=== PATIENT | female | born 1945 | race Caucasian/White ===

== ENCOUNTER → 2017-09-19 13:25 | Outpatient (CLI) | payer MEDICARE, SELFPAY ==
[2017-09-19 15:45] LABS: Free T4 (Free Thyroxine) 1.18 ng/dl (0.76-1.46); Thyroid Stimulating Hormone 0.26 uIU/ml (0.358-3.740)
[2017-09-20 19:10] LABS: Triiodothyronine (T3) Free 2.3 pg/mL (2.0-4.4)
== END ==
PROVIDERS: PCP Nurse Practitioner Family; Visit Provider Otolaryngology
DX: E03.9 Hypothyroidism, unspecified (principal); E05.00 Thyrotoxicosis with diffuse goiter without thyrotoxic crisis or storm
CPT/HCPCS: 36415; 84439; 84443; 84481

== ENCOUNTER → 2017-11-21 09:15 | Outpatient (CLI) | payer MEDICARE, SELFPAY ==
[2017-11-21 10:59] LABS: Alanine Aminotransferase 32 U/L (12-78); Albumin Level 3.8 gm/dL (3.4-5.0); Alkaline Phosphatase 75 U/L (46-116); Aspartate Amino Transferase 31 U/L (15-37); Bilirubin,Direct 0.2 mg/dL (0.0-0.2); Bilirubin,Total 0.4 mg/dL (0.2-1.0); Cholesterol 142 mg/dL (140-200); HDL Cholesterol 71 mg/dL (29-89); LDL Cholesterol 63 mg/dL (0-130); Total Protein,Serum 6.4 gm/dL (6.4-8.2); Triglycerides 39 mg/dL (30-200); VLDL Cholesterol 8 mg/dL (0-40)
== END ==
PROVIDERS: Visit Provider Internal Medicine
DX: E78.5 Hyperlipidemia, unspecified (principal); I11.9 Hypertensive heart disease without heart failure; I25.10 Atherosclerotic heart disease of native coronary artery without angina pectoris; R07.9 Chest pain, unspecified; R06.00 Dyspnea, unspecified
CPT/HCPCS: 36415; 80061; 80076

== ENCOUNTER → 2018-07-31 15:13 | Outpatient (CLI) | payer MEDICARE, SELFPAY ==
--- NOTE | 2018-07-31 15:18 | MM_ITS ---
MM Dig screening mamm BI w/CAD ORDERING PHYSICIAN : Hosea Johnson MD PATIENT AGE: 72 years GENDER: Female COMPARISON: July 2017, 2015, 2014, June 2014, 2013 Also April 2011, and May 2012 states [facility] INDICATION: ITS.REASON: SCREENING No hormones. No new complaints. Previous lumpectomy and radiation left breast . Family history. Maternal cousin with breast cancer TECHNIQUE: Standard CC and MLO images were obtained. R2 CAD reviewed. Additional MLO views left breast FINDINGS: Moderately dense breast bilaterally. RIGHT BREAST: Areas of density superior right breast appears similar to May 2012, April 2011 CC and MLO views. One of the cc view from 2014 with some appearance as well. Given this relative stability follow-up would be adequate. LEFT BREAST:No significant new findings. Lumpectomy site deep left breast with what appear to be most likely dense course calcification at the biopsy site. Similar to last years study with only slight progression dense rim calcification pattern.. Overall appearance Most compatible with this slight progression of fat necrosis calcification.. It can be followed. IMPRESSION: No significant new findings either breast.- Bilateral follow-up one year Left breast:: Post lumpectomy changes.. Dense coarse benign appearing calcifications compatible with slowly progressing fat necrosis calcification seen at the biopsy site July 2017. Right breast:.. Asymmetric areas of fibroglandular extending superior and lateral to the retroareolar region, appears similar to old studies dating back to 2011 & 2010 Follow follow-up in one year recommended and should be encouraged BI-RADS Category: 2 Benign Finding(s) RECOMMENDED FOLLOW-UP: 1YR 1 YEAR FOLLOW-UP (A letter has been sent to the patient regarding results of the study.)
== END ==
PROVIDERS: PCP Internal Medicine Adolescent Medicine; Visit Provider Internal Medicine Adolescent Medicine
DX: Z12.31 Encounter for screening mammogram for malignant neoplasm of breast (principal)
CPT/HCPCS: 77067

== ENCOUNTER → 2018-08-06 10:35 | Outpatient (CLI) | payer MEDICARE, SELFPAY ==
[2018-08-06 11:19] LABS: Basophils # 0.1 K/mm3 (0-0.2); Basophils % 1.2 % (0.1-2.0); Eosinophils # 0.1 K/mm3 (0.0-0.4); Eosinophils % 2.4 % (0.1-12.0); Hematocrit 39.9 % (37.0-47.0); Hemoglobin 13.2 g/dL (12.2-16.2); Lymphocytes # 1.3 K/mm3 (0.7-4.5); Lymphocytes % 24.1 % (10-50); Mean Corpuscular HGB Conc 33.2 g/dL (31.8-35.4); Mean Corpuscular Hemoglobin 32.3 pg (27.0-31.2); Mean Corpuscular Volume 97.3 fl (81-99); Mean Platelet Volume 6.9 fl (7.4-10.4); Monocytes # 0.4 K/mm3 (0.1-1.0); Monocytes % 7.9 % (1.7-9.3); Neutrophils # 3.4 K/mm3 (1.8-7.8); Neutrophils % 64.5 % (37.0-80.0); Platelet Count 256 K/mm3 (142-424); Red Cell Distribution Width 12.5 % (11.5-17.5); White Blood Count 5.2 K/mm3 (4.8-10.8)
[2018-08-06 12:29] LABS: Cholesterol 163 mg/dL (140-200); HDL Cholesterol 80 mg/dL (29-89); LDL Cholesterol 74 mg/dL (0-130); Triglycerides 47 mg/dL (30-200); VLDL Cholesterol 9 mg/dL (0-40)
[2018-08-06 12:40] LABS: Albumin Level 3.9 gm/dL (3.4-5.0); Anion Gap 12.8 mEq/L (5-15); Bilirubin,Total 0.6 mg/dL (0.2-1.0); Blood Urea Nitrogen 7 mg/dL (7-18); Calcium 9.1 mg/dL (8.5-10.1); Carbon Dioxide 28 mmol/L (21.0-32.0); Chloride 102 mmol/L (98-107); Creatinine,Serum 0.68 mg/dL (0.55-1.02); Estimated Glomerular Filt Rate 86 ml/min (>60); GFR (African American) 104 ML/MIN (>60); Glucose 104 mg/dL (74-106); Potassium 3.8 mmoL/L (3.5-5.1); Sodium 139 mmol/L (136-145)
[2018-08-06 12:41] LABS: Albumin/Globulin Ratio 1.4 (1.1-1.8); Free Thyroxine Index 4.1 ug/dL (5.93-13.13); T4 (Thyroxine) 10.8 ug/dl (4.7-13.3); Triiodothryronine (T3) Uptake 38 % (31-39)
[2018-08-06 12:44] LABS: Globulin 2.7 gm/dl (1.3-3.2); Total Protein,Serum 6.6 gm/dL (6.4-8.2)
[2018-08-06 12:45] LABS: Alkaline Phosphatase 63 U/L (46-116)
[2018-08-06 12:46] LABS: Bilirubin,Direct 0.2 mg/dL (0.0-0.2)
[2018-08-06 12:46] LABS: Alanine Aminotransferase 25 U/L (12-78); Aspartate Amino Transferase 23 U/L (15-37)
[2018-08-07 12:11] LABS: Sjogren's Anti-SS-A <0.2 AI (0.0-0.9)
[2018-08-08 10:55] LABS: Antinuclear Antibodies, IFA Positive (.); Sjogren's Anti-SS-B <0.2 AI (0.0-0.9); Vitamin B12 540 pg/mL (232-1245)
[2018-08-09 21:45] LABS: Immunoglobulin E, Total 7 IU/mL (0-100)
== END ==
PROVIDERS: PCP Nurse Practitioner Family; Visit Provider Physician Assistant
DX: I11.9 Hypertensive heart disease without heart failure (principal)
CPT/HCPCS: 36415; 80053; 80061; 82248; 82607; 82785; 84436; 84443; 84479; 85025; 86038; 86235

== ENCOUNTER → 2018-12-24 09:32 | Outpatient (CLI) | payer MEDICARE, SELFPAY ==
[2018-12-24 09:49] LABS: Basophils # 0.1 K/mm3 (0-0.2); Basophils % 1.2 % (0.1-2.0); Eosinophils # 0.1 K/mm3 (0.0-0.4); Eosinophils % 2.4 % (0.1-12.0); Hematocrit 40.7 % (37.0-47.0); Hemoglobin 13.8 g/dL (12.2-16.2); Lymphocytes # 1.2 K/mm3 (0.7-4.5); Lymphocytes % 25.6 % (10-50); Mean Corpuscular HGB Conc 33.9 g/dL (31.8-35.4); Mean Corpuscular Hemoglobin 31.9 pg (27.0-31.2); Mean Platelet Volume 7.3 fl (7.4-10.4); Monocytes # 0.4 K/mm3 (0.1-1.0); Monocytes % 8.7 % (1.7-9.3); Neutrophils # 2.9 K/mm3 (1.8-7.8); Platelet Count 232 K/mm3 (142-424); Red Blood Count 4.33 M/mm3 (4.20-5.40); Red Cell Distribution Width 12.3 % (11.5-17.5); White Blood Count 4.7 K/mm3 (4.8-10.8)
[2018-12-24 10:51] LABS: Alanine Aminotransferase 28 U/L (12-78); Albumin/Globulin Ratio 1.3 (1.1-1.8); Alkaline Phosphatase 69 U/L (46-116); Anion Gap 12.9 mEq/L (5-15); Aspartate Amino Transferase 24 U/L (15-37); Bilirubin,Total 0.7 mg/dL (0.2-1.0); Blood Urea Nitrogen 7 mg/dL (7-18); Carbon Dioxide 29 mmol/L (21.0-32.0); Chloride 101 mmol/L (98-107); Chol/HDL Ratio 2.1 (1-3.5); Cholesterol 172 mg/dL (140-200); Creatinine,Serum 0.66 mg/dL (0.55-1.02); Estimated Glomerular Filt Rate 88 ml/min (>60); GFR (African American) 107 ML/MIN (>60); Glucose 102 mg/dL (74-106); HDL Cholesterol 81 mg/dL (29-89); LDL Cholesterol 80 mg/dL (0-130); Potassium 3.9 mmoL/L (3.5-5.1); Sodium 139 mmol/L (136-145); Thyroid Stimulating Hormone 0.74 uIU/ml (0.358-3.740); Triglycerides 53 mg/dL (30-200); VLDL Cholesterol 11 mg/dL (0-40)
[2018-12-25 10:43] LABS: Vitamin B12 >2000 pg/mL (232-1245)
[2018-12-25 10:44] LABS: Vitamin D 25 Hydroxy 30.4 ng/mL (30.0-100.0)
== END ==
PROVIDERS: Visit Provider Nurse Practitioner Family
DX: I10 Essential (primary) hypertension (principal); G62.9 Polyneuropathy, unspecified; I25.10 Atherosclerotic heart disease of native coronary artery without angina pectoris; E03.9 Hypothyroidism, unspecified; E53.8 Deficiency of other specified B group vitamins
CPT/HCPCS: 36415; 80053; 80061; 82607; 82652; 84443; 85025

== ENCOUNTER → 2019-03-25 13:32 | Outpatient (CLI) | payer MEDICARE, SELFPAY ==
[2019-03-25 15:12] LABS: Free T4 (Free Thyroxine) 1.15 ng/dl (0.76-1.46); Thyroid Stimulating Hormone 0.27 uIU/ml (0.358-3.740)
[2019-03-25 15:39] LABS: Erythrocyte Sedimentation Rate 8 mm/hr (0-30)
[2019-03-26 13:11] LABS: Sjogren's Anti-SS-A <0.2 AI (0.0-0.9)
[2019-03-26 18:06] LABS: RA Latex Turbid. <10.0 IU/mL (0.0-13.9); Sjogren's Anti-SS-B <0.2 AI (0.0-0.9)
== END ==
PROVIDERS: Visit Provider Internal Medicine Endocrinology, Diabetes & Metabolism
DX: R53.81 Other malaise (principal)
CPT/HCPCS: 36415; 84439; 84443; 85651; 86235; 86431

== ENCOUNTER → 2019-06-15 14:57 | Outpatient (CLI) | payer MEDICARE, SELFPAY | PROVIDERS: Visit Provider Internal Medicine Endocrinology, Diabetes & Metabolism | DX: E03.9 Hypothyroidism, unspecified (principal) | CPT/HCPCS: 36415; 84443 ==

== ENCOUNTER → 2019-06-30 09:55 | Outpatient (CLI) | payer MEDICARE, SELFPAY ==
[2019-06-30 10:58] LABS: Basophils # 0.1 K/mm3 (0-0.2); Basophils % 1.3 % (0.1-2.0); Eosinophils # 0.2 K/mm3 (0.0-0.4); Eosinophils % 3.6 % (0.1-12.0); Hematocrit 39.9 % (37.0-47.0); Hemoglobin 13.4 g/dL (12.2-16.2); Lymphocytes # 1.2 K/mm3 (0.7-4.5); Lymphocytes % 23.4 % (10-50); Mean Corpuscular HGB Conc 33.5 g/dL (31.8-35.4); Mean Corpuscular Hemoglobin 34.1 pg (27.0-31.2); Mean Corpuscular Volume 101.9 fl (81-99); Mean Platelet Volume 7.7 fl (7.4-10.4); Monocytes # 0.5 K/mm3 (0.1-1.0); Monocytes % 9.9 % (1.7-9.3); Neutrophils % 61.7 % (37.0-80.0); Platelet Count 253 K/mm3 (142-424); Red Blood Count 3.92 M/mm3 (4.20-5.40); Red Cell Distribution Width 12.9 % (11.5-17.5); White Blood Count 4.9 K/mm3 (4.8-10.8)
[2019-06-30 12:03] LABS: Alanine Aminotransferase 22 U/L (12-78); Albumin Level 3.8 gm/dL (3.4-5.0); Albumin/Globulin Ratio 1.4 (1.1-1.8); Alkaline Phosphatase 59 U/L (46-116); Aspartate Amino Transferase 25 U/L (15-37); Bilirubin,Total 0.5 mg/dL (0.2-1.0); Blood Urea Nitrogen 6 mg/dL (7-18); Carbon Dioxide 29 mmol/L (21.0-32.0); Chloride 103 mmol/L (98-107); Cholesterol 159 mg/dL (140-200); Creatinine,Serum 0.65 mg/dL (0.55-1.02); Estimated Glomerular Filt Rate 90 ml/min (>60); GFR (African American) 109 ML/MIN (>60); Globulin 2.7 gm/dl (1.3-3.2); Glucose 98 mg/dL (74-106); HDL Cholesterol 81 mg/dL (29-89); LDL Cholesterol 71 mg/dL (0-130); Sodium 137 mmol/L (136-145); Total Protein,Serum 6.5 gm/dL (6.4-8.2); Triglycerides 35 mg/dL (30-200); VLDL Cholesterol 7 mg/dL (0-40)
[2019-07-01 11:22] LABS: Vitamin B12 378 pg/mL (232-1245); Vitamin D 25 Hydroxy 28.3 ng/mL (30.0-100.0)
== END ==
PROVIDERS: Visit Provider Nurse Practitioner Family
DX: I10 Essential (primary) hypertension (principal); E53.8 Deficiency of other specified B group vitamins; M81.0 Age-related osteoporosis without current pathological fracture; E55.9 Vitamin D deficiency, unspecified
CPT/HCPCS: 36415; 80053; 80061; 82607; 82652; 85025

== ENCOUNTER → 2019-08-09 09:44 | Outpatient (CLI) | payer MEDICARE, SELFPAY ==
--- NOTE | 2019-08-09 09:49 | MM_ITS ---
PROCEDURE: MM DIG SCREENING MAMM BI W/CAD Patient Age:73Y CLINICAL INDICATION: SCREENING the history of left breast cancer. Malignant lumpectomy left breast with radiation. No new complaints. Family history: Maternal cousin with breast cancer COMPARISON: The DIAG MAMMO BI-LAT W/ CAD from 05/12/2012 [facility] DIG MAMM-SCREEN RUT from 06/11/2013 [facility] DIG MAMM-SCREEN RUT from 06/15/2014 [facility] DIG MAMM-SCREEN RUT from 07/20/2015 [facility] DIG MAMM-SCREEN RUT from 07/23/2016 [facility] DIG MAMM-DX UNI A/VWS-LT W/CAD from 08/15/2016 [facility] DIG MAMM-SCREEN RUT W/CAD from 07/28/2017 [facility] MM Dig screening mamm BI w/CAD from 07/31/2018 TECHNIQUE: Standard CC and MLO images were obtained. R2 CAD reviewed. FINDINGS: Multiple prior studies are very helpful in supporting stable appearing breast bilaterally. Mild asymmetry with moderate residual fibroglandular elements. A Left breast. Multiple surgical clips at the lumpectomy site at deep/inferior breast are again noted. But mild stable architectural distortion. No new findings in this region. Only minimal residual postsurgical soft tissue density, less evident on today's projections .. There is progressive dense spherical benign-appearing calcification at the biopsy site of reflecting likely benign fat necrosis, post biopsy calcification pattern. No suspicious calcifications Right breast but stable unremarkable. Bilateral follow-up 1 year recommended T IMPRESSION: No significant new findings. Lumpectomy deep breast. Benign dense spherical rim-like calcification deep left breast BI-RAD Category: 2 Benign Finding(s) FOLLOW-UP: 1YR 1 Year Follow-up the (A letter has been sent to the patient regarding results of the study.) Dictated by: Sandip Moss MD 08/12/2019 23:45 Electronically signed by Sandip Moss MD in [place] 08/12/2019 23:45
--- NOTE | 2019-08-09 09:50 | XR_ITS ---
PROCEDURE: XR DEXA AXIAL SKELETON CLINICAL HISTORY: OSTEOPOROSIS, currently taking calcium supplement COMPARISON: BONE3 BONE DENSITOMETRY(HIP:LT SPINE from 07/23/2016 FINDINGS: The average BMD lumbar spine L1 through L4 is 0.737 g per cm squared and the T-score is -2.8. This shows slight interval decrease from previous study when the T-score was -2.3. Bilateral hips: The total BMD right hip is 0.617 grams/centimeter sq with a T-score -2.7 and the right femoral neck is 0.479 grams/centimeter sq with T-score -3.3. Left hip: The total BMD is 0.585 grams/centimeter sq with a T-score -2.9 and the left femoral neck is 0.518 grams/centimeter sq with a T-score -3.0. These values show very little if any change from the previous study. IMPRESSION: Osteoporosis values for the lumbar spine and bilateral hips, consider follow-up study in approximately 2 years Dictated by: Dr. Renard Morales MD 08/10/2019 10:[address] Renard Morales MD in [place] 08/10/2019 10:27
== END ==
PROVIDERS: PCP Internal Medicine Adolescent Medicine; Referring Provider Nurse Practitioner Family; Visit Provider Nurse Practitioner Family
DX: Z12.31 Encounter for screening mammogram for malignant neoplasm of breast (principal); M81.0 Age-related osteoporosis without current pathological fracture
CPT/HCPCS: 77067; 77080

== ENCOUNTER → 2020-03-30 09:07 | Outpatient (CLI) | payer MEDICARE, SELFPAY ==
[2020-03-30 09:34] LABS: Basophils # 0.1 K/mm3 (0-0.2); Basophils % 1.2 % (0.1-2.0); Eosinophils # 0.1 K/mm3 (0.0-0.4); Hematocrit 39.9 % (37.0-47.0); Hemoglobin 13.8 g/dL (12.2-16.2); Lymphocytes # 1.1 K/mm3 (0.7-4.5); Lymphocytes % 19.2 % (10-50); Mean Corpuscular HGB Conc 34.7 g/dL (31.8-35.4); Mean Corpuscular Hemoglobin 33.9 pg (27.0-31.2); Mean Corpuscular Volume 97.8 fl (81-99); Mean Platelet Volume 7.5 fl (7.4-10.4); Monocytes # 0.4 K/mm3 (0.1-1.0); Monocytes % 6.6 % (1.7-9.3); Neutrophils # 3.9 K/mm3 (1.8-7.8); Neutrophils % 71.1 % (37.0-80.0); Platelet Count 236 K/mm3 (142-424); Red Blood Count 4.09 M/mm3 (4.20-5.40); Red Cell Distribution Width 12.9 % (11.5-17.5); White Blood Count 5.5 K/mm3 (4.8-10.8)
[2020-03-30 10:38] LABS: Chloride 100 mmol/L (98-107); Potassium 4.1 mmoL/L (3.5-5.1); Sodium 135 mmol/L (136-145)
[2020-03-30 10:40] LABS: Blood Urea Nitrogen 7 mg/dl (7-17); Estimated Glomerular Filt Rate 98 ml/min (>60); GFR (African American) 119 ML/MIN (>60)
[2020-03-30 10:41] LABS: Alanine Aminotransferase 25 U/L (12-78); Albumin/Globulin Ratio 1.6 (1.1-1.8); Alkaline Phosphatase 47 U/L (38-126); Anion Gap 11.1 mEq/L (5-15); Aspartate Amino Transferase 49 U/L (14-36); Bilirubin,Total 0.7 mg/dl (0.2-1.3); Calcium 9.8 mg/dl (8.4-10.2); Carbon Dioxide 28 mmol/L (22.0-30.0); Cholesterol 165 mg/dl (140-200); Globulin 2.5 g/dL (1.3-3.2); Glucose 108 mg/dl (74-100); HDL Cholesterol 84 mg/dl (40-60); Total Protein,Serum 6.5 g/dl (6.3-8.2); Triglycerides 65 mg/dl (30-150); VLDL Cholesterol 13 mg/dL (0-40)
[2020-03-30 10:52] LABS: Direct LDL Cholesterol 73.27 mg/dL (100-129)
[2020-03-30 10:58] LABS: Free T4 (Free Thyroxine) 1.26 ng/dl (0.78-2.19)
[2020-03-30 11:11] LABS: Thyroid Stimulating Hormone 2.98 uIU/mL (0.465-4.68)
[2020-03-30 11:30] LABS: 25-OH Vitamin D, Total 36.4 ng/mL (30-100)
[2020-03-31 10:16] LABS: Triiodothyronine (T3) Free 2.3 pg/mL (2.0-4.4); Vitamin B12 331 pg/mL (232-1245)
== END ==
PROVIDERS: Visit Provider Nurse Practitioner Family
DX: E03.9 Hypothyroidism, unspecified (principal); E53.8 Deficiency of other specified B group vitamins; I10 Essential (primary) hypertension; G62.9 Polyneuropathy, unspecified; M81.0 Age-related osteoporosis without current pathological fracture
CPT/HCPCS: 36415; 80053; 80061; 82306; 82607; 84439; 84443; 84481; 85025

== ENCOUNTER → 2020-06-22 13:39 | Outpatient (CLI) | payer MEDICARE, SELFPAY ==
[2020-06-22 14:22] LABS: Basophils # 0.1 K/mm3 (0-0.2); Eosinophils # 0.1 K/mm3 (0.0-0.4); Eosinophils % 1.8 % (0.1-12.0); Hematocrit 41.4 % (37.0-47.0); Hemoglobin 14.2 g/dL (12.2-16.2); Lymphocytes # 1.3 K/mm3 (0.7-4.5); Lymphocytes % 19.5 % (10-50); Mean Corpuscular HGB Conc 34.2 g/dL (31.8-35.4); Mean Corpuscular Hemoglobin 32.9 pg (27.0-31.2); Mean Corpuscular Volume 96.4 fl (81-99); Mean Platelet Volume 6.8 fl (7.4-10.4); Monocytes # 0.5 K/mm3 (0.1-1.0); Monocytes % 7.6 % (1.7-9.3); Neutrophils # 4.6 K/mm3 (1.8-7.8); Platelet Count 262 K/mm3 (142-424); Red Cell Distribution Width 12.7 % (11.5-17.5); White Blood Count 6.5 K/mm3 (4.8-10.8)
[2020-06-22 15:44] LABS: Chloride 98 mmol/L (98-107); Sodium 133 mmol/L (136-145)
[2020-06-22 15:46] LABS: Alanine Aminotransferase 15 U/L (12-78); Aspartate Amino Transferase 34 U/L (14-36); Blood Urea Nitrogen 7 mg/dl (7-17); Estimated Glomerular Filt Rate 82 ml/min (>60); GFR (African American) 100 ML/MIN (>60)
[2020-06-22 15:47] LABS: Albumin Level 4.2 g/dl (3.5-5.0); Albumin/Globulin Ratio 1.8 (1.1-1.8); Alkaline Phosphatase 45 U/L (38-126); Bilirubin,Total 0.5 mg/dl (0.2-1.3); Calcium 9.4 mg/dl (8.4-10.2); Carbon Dioxide 28 mmol/L (22.0-30.0); Globulin 2.4 g/dL (1.3-3.2); Glucose 105 mg/dl (74-100); Total Protein,Serum 6.6 g/dl (6.3-8.2)
[2020-06-22 16:07] LABS: Free Thyroxine Index 3.1 ug/dL (5.93-13.13); T4 (Thyroxine) 8.7 ug/dl (5.53-11.0); Triiodothryronine (T3) Uptake 36 % (23.5-40.5)
[2020-06-22 16:21] LABS: Thyroid Stimulating Hormone 2.15 uIU/mL (0.465-4.68)
[2020-06-22 17:11] LABS: Hemoglobin A1C 5.5 % (4.0-6.0)
[2020-06-22 23:26] LABS: Vitamin B12 > 1000 pg/mL (239-931)
== END ==
PROVIDERS: Visit Provider Nurse Practitioner Family
DX: R73.9 Hyperglycemia, unspecified (principal); E03.9 Hypothyroidism, unspecified; E53.8 Deficiency of other specified B group vitamins
CPT/HCPCS: 36415; 80053; 82607; 83036; 84436; 84443; 84479; 85025

== ENCOUNTER 2020-07-28 11:54 | Emergency (ER) | payer MEDICARE, SELFPAY ==
[2020-07-28 12:10] VITALS: BP 135/74; BP 150/77; PULSE 67; PULSE 73; RESP 22; TEMP 36.9; O2SAT 99; BMI 18.8
[2020-07-28 12:24] VITALS: BP 159/77; PULSE 68; RESP 18; TEMP 36.6; O2SAT 99; BMI 18.8
--- NOTE | 2020-07-28 12:30 | XR_ITS ---
PROCEDURE: XR CHEST 2V CLINICAL HISTORY: DIZZY COMPARISON: CR CXR1 CHEST-PORTABLE from 09/30/2016 CR CXR CHEST(2 VIEWS-NOT PORTABLE) from 12/31/2016 CR CXR1 CHEST-PORTABLE from 05/15/2017 FINDINGS: The cardiomediastinal silhouette and pulmonary vascularity are within normal limits. COPD changes. Surgical clips noted projecting over the lower lung zone on the left. There is scarring projecting over the anterior clear space No acute bony abnormalities. IMPRESSION: No acute findings. Dictated by: Wilmer Porras MD 07/28/2020 13:54 Wilmer Porras MD in [place] 07/28/2020 13:54
--- NOTE | 2020-07-28 12:30 | CT_ITS ---
PROCEDURE: CT HEAD/BRAIN WO CON CLINICAL INDICATION: DIZZY COMPARISON: CT HDWO CT HEAD W/O CONTRAST from 05/15/2017 TECHNIQUE: Axial images obtained. All CT scans at the facility use one or more dose reduction, viz: automated exposure control, ma/kV adjustment per patient size (including targeted exams where dose is matched to indication, i.e. head), or iterative reconstruction technique. FINDINGS: No midline shift, mass effect, intracranial hemorrhage, hydrocephalus, or extra-axial fluid collection is evident. There involutional changes of age with mild brain volume loss. The calvarium has an unremarkable appearance. No mastoid effusion. No sinus air-fluid level. IMPRESSION: No acute intracranial finding Dictated by: Wilmer Porras MD 07/28/2020 14:01 Wilmer Porras MD in [place] 07/28/2020 14:01
--- NOTE | 2020-07-28 12:38 | CT_ITS ---
Procedure: CT ANGIO NECK CT ANGIO HEAD CLINICAL HISTORY: DIZZINESS COMPARISON: CT CT ANGIO HEAD from 07/28/2020 TECHNIQUE: IV Contrast: 100ml Isovue 370 Axial images obtained with sagittal and coronal reformats. All CT scans at the facility use one or more dose reduction, viz: automated exposure control, ma/kV adjustment per patient size (including targeted exams where dose is matched to indication, i.e. head), or iterative reconstruction technique. FINDINGS: CTA neck: The aortic arch shows no acute finding. No significant stenosis of the great vessels. Right carotid: The common carotid and internal carotid artery have an unremarkable appearance. No stenosis or dissection. External carotid on the right has an unremarkable appearance. Left carotid: Unremarkable. No stenosis or dissection. Unremarkable internal and external carotid. Right vertebral: Unremarkable no stenosis occlusion or dissection. Left vertebral: The left vertebral is dominant. There is a calcific plaque involving the left subclavian artery extending to the ostium of the left vertebral with 50-60 percent ostial stenosis CTA head: The internal carotids demonstrate some minimal calcific plaque without significant stenosis. No aneurysm, AVM, or major branch occlusion evident. Vertebrobasilar: No aneurysm, AVM, or major branch occlusion. There is a small infundibulum projecting off of the PCOM origin of the left posterior cerebral Post enhanced CT head: No enhancing lesions. No midline shift or mass effect. No evidence of sinus thrombosis. Soft tissues head and neck: Scarring in the lung apices. IMPRESSION: 1. 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 No occlusive change or dissection. 2. Unremarkable CTA of the carotids. 3. Unremarkable CTA of the head Dictated by: Wilmer Porras MD 07/28/2020 14:14 Wilmer Porras MD in [place] 07/28/2020 14:14
--- NOTE | 2020-07-28 12:39 | ECG_ITS ---
APPROVED REPORT Exam: Resting ECG HR:60 bpm ECG Measurements Heart Rate 60 AXES LA 140 P 83 QRSd 80 QRS 60 QT 408 T 73 QTc 408 Conclusion Normal sinus rhythm Possible Left atrial enlargement Borderline ECG Electronically signed by : Hosea Johnson, 07/28/2020 19:08:42
[2020-07-28 12:44] LABS: Basophils % 0.7 % (0.1-2.0); Eosinophils # 0.1 K/mm3 (0.0-0.4); Eosinophils % 1.3 % (0.1-12.0); Hematocrit 41.4 % (37.0-47.0); Hemoglobin 13.4 g/dL (12.2-16.2); Lymphocytes # 1.1 K/mm3 (0.7-4.5); Lymphocytes % 17.6 % (10-50); Mean Corpuscular HGB Conc 32.5 g/dL (31.8-35.4); Mean Corpuscular Hemoglobin 31.6 pg (27.0-31.2); Mean Corpuscular Volume 97.5 fl (81-99); Mean Platelet Volume 6.8 fl (7.4-10.4); Monocytes # 0.5 K/mm3 (0.1-1.0); Monocytes % 7.5 % (1.7-9.3); Neutrophils # 4.5 K/mm3 (1.8-7.8); Neutrophils % 72.9 % (37.0-80.0); Platelet Count 252 K/mm3 (142-424); Red Blood Count 4.25 M/mm3 (4.20-5.40); Red Cell Distribution Width 12.1 % (11.5-17.5); White Blood Count 6.1 K/mm3 (4.8-10.8)
[2020-07-28 12:49] LABS: Chloride 98 mmol/L (98-107); Sodium 132 mmol/L (136-145)
[2020-07-28 12:50] LABS: Potassium 4.1 mmoL/L (3.5-5.1)
[2020-07-28 12:52] LABS: Alanine Aminotransferase 16 U/L (12-78); Albumin Level 4.4 g/dl (3.5-5.0); Albumin/Globulin Ratio 1.6 (1.1-1.8); Alkaline Phosphatase 62 U/L (38-126); Anion Gap 10.1 mEq/L (5-15); Aspartate Amino Transferase 36 U/L (14-36); Bilirubin,Total 0.7 mg/dl (0.2-1.3); Blood Urea Nitrogen 6 mg/dl (7-17); Carbon Dioxide 28 mmol/L (22.0-30.0); Creatinine Clearance Estimated 36 mL/min (50-200); Estimated Glomerular Filt Rate 98 ml/min (>60); GFR (African American) 119 ML/MIN (>60); Globulin 2.8 g/dL (1.3-3.2); Total Protein,Serum 7.2 g/dl (6.3-8.2)
[2020-07-28 12:53] LABS: Calcium 9.7 mg/dl (8.4-10.2); Glucose 124 mg/dl (74-100)
[2020-07-28 13:04] LABS: Troponin I < 0.01 ng/ml (0.00-0.034)
[2020-07-28 13:15] VITALS: BP 148/74; PULSE 68; O2SAT 99
[2020-07-28 13:31] LABS: Microscopic, Urine URINE MICROSCOPIC (MICROSCOPIC)
[2020-07-28 13:32] LABS: Appearance,Urine CLEAR (Clear); Bilirubin,Urine Negative (Negative); Blood, Urine 1+ (Negative); Color,Urine YELLOW (Yellow); Glucose,Urine (UA) Negative (Negative); Ketones,Urine Negative (Negative); Leukocyte Esterase,Urine Negative (Negative); Nitrate,Urine Negative (Negative); PH,Urine 6.5 (5.0-8.5); Protein,Urine Negative (Negative); Specific Gravity, Urine <= 1.005 (1.005-1.030); Urobilinogen,Urine 0.2 EU/dl (0.2)
[2020-07-28 13:39] LABS: Amorphous Sediment,Urine 1+ /lpf; Squamous Epithelial Cell,Urine Occasional #/hpf (0-5)
--- NOTE | 2020-07-28 13:49 | HMH.EDUTC ---
[facility] [place] Disposition Referrals: Hosea Johnson MD [Primary Care Provider] - Medical Decision Making Vital Signs: 07/28/20 12:10 07/28/20 12:24 07/28/20 13:15 Temperature 98.5 F 97.9 F Temperature Source Oral Oral Pulse Rate [Orthostatic Sitting Right Brachial] 67 Pulse Rate [Orthostatic Standing Right Brachial] 73 Pulse Rate [Radial] 68 Pulse Rate [Right Brachial] 67 68 Respiratory Rate 22 18 Blood Pressure [Orthostatic Sitting Right Arm] 150/77 H Blood Pressure [Orthostatic Standing Right Arm] 135/74 Blood Pressure [Right Arm] 150/77 H 159/77 H 148/74 H Blood Pressure Mean [Right Arm] 101 104 98 Blood Pressure Source [Right Arm] Automatic Cuff Automatic Cuff Automatic Cuff Blood Pressure Position [Right Arm] Sitting Sitting Sitting 02 Sat by Pulse Oximetry 99 99 99 Oxygen Delivery Method Room Air Room Air Room Air - Lab Data Lab Results 07/28/20 12:37: WBC 6.1, RBC 4.25, Hgb 13.4, Hct 41.4, MCV 97.5, MCH 31.6 H, MCHC 32.5, RDW 12.1, Plt Count 252, MPV 6.8 L, Neut % (Auto) 72.9, Lymph % (Auto) 17.6, [place] % (Auto) 7.5, Eos % (Auto) 1.3, Baso % (Auto) 0.7, Neut # (Auto) 4.5, Lymph # (Auto) 1.1, Kern # (Auto) 0.5, Eos # (Auto) 0.1, Baso # (Auto) 0.0 07/28/20 12:37: Sodium 132 L, Potassium 4.1, Chloride 98, Carbon Dioxide 28, Anion Gap 10.1, BUN 6 L, Creatinine 0.60, Estimated Creat Clear 36, Estimated GFR 98, Est GFR ( Amer) 119, Glucose 124 H, Calcium 9.7, Total Bilirubin 0.7, AST 36, ALT 16, Alkaline Phosphatase 62, Troponin I < 0.01, Total Protein 7.2, Albumin 4.4, Globulin 2.8, Albumin/Globulin Ratio 1.6 07/28/20 13:27: Urine Color Yellow, Urine Appearance Clear, Urine pH 6.5, Ur Specific Roann <= 1.005, Urine Protein Negative, Urine Glucose (UA) Negative, Urine Ketones Negative, Urine Blood 1+, Urine Nitrate Negative, Urine Bilirubin Negative, Urine Urobilinogen 0.2, Ur Leukocyte Esterase Negative, Urine RBC 3-5, Urine WBC None, Ur Squamous Epith Cells Occasional, Amorphous Sediment 1+, Urine Bacteria None Result diagrams: 07/28/20 12:37 07/28/20 12:37 Orders (Tests/Meds): ED MEDICATIONS Discontinued Medications Generic Name Dose Route Start Last Admin Trade Name Freq PRN Reason Stop Dose Admin Sodium Chloride 1,000 mls @ 999 mls/hr 07/28/20 12:45 07/28/20 12:43 Sod Chlor 0.9% 1000ml Bag IV 07/28/20 13:45 999 mls/hr .Q1H1M GUME Administration Iopamidol 100 ml 07/28/20 13:46 07/28/20 13:47 Iopamidol-370 (76%);100ml Bottle IV 07/28/20 13:47 100 ml ONCE ONE Administration Sodium Chloride 50 ml 07/28/20 13:46 07/28/20 13:47 0.9 % Sodium Chloride 50 Ml Vial IV 07/28/20 13:47 50 ml ONCE ONE Administration Sodium Chloride 10 ml 07/28/20 13:46 07/28/20 13:47 Sodium Chloride 0.9% 10ml Syr (Rad Only) IV 07/28/20 13:47 10 ml ONCE ONE Administration ORDERS Category Date Time Status CT angio head Stat Cat Scan 07/28/20 12:[address] angio neck Stat Cat Scan 07/28/20 12:[address] head/brain wo con Stat Cat Scan 07/28/20 12:30 Taken Chest XR 2 view (NOT portable) [XR chest 2V] Stat Exams 07/28/20 12:30 Taken Troponin I Q3H Lab 07/28/20 15:45 Ordered Troponin I Q3H Lab 07/28/20 18:45 Ordered [facility] [place] HPI - General Chief complaint: Dizziness Stated complaint: dizzy, nausea, burning in throat Mode of Arrival: Ambulatory Limitations: No Limitations Description of Symptoms (Recalled from Triage Doc. by RN): tired, feels ran down, dizzy, states her head feels numb at times. HEENT Symptoms (Recalled from RN notes): Yes Resp Symptoms (Recalled from RN notes): No Skin Symptoms (Recalled from RN notes): No MS Symptoms (Recalled from RN notes): Yes Functional Status (Recalled from RN notes): wnl - Related Data Home Medications Medication Instructions Recorded Confirmed alprazolam 1 mg tablet 0.5 mg PO QDAY tab 08/12/17 11/24/18 aspirin 81 mg tablet,delayed 81 mg PO QDAY 08/12/17 11/24/18 release losartan 50 mg tablet 1
--- NOTE | 2020-07-28 13:58 | HMH.EDDIZZ ---
ED Disposition Clinical Impression: Vertigo Disposition: Home, Self-Care Condition on Discharge: Good Instructions: DI for Vertigo Additional Instructions: see pcp and recheck if needed and consider neuro consult Referrals: Hosea Johnson MD [Primary Care Provider] - - Critical Care Critical Care Time: No Attestation: On 07/28/20, the high probability of a clinically significant, sudden or life threatening deterioration of the following system(s) required my full and direct attention, intervention and personal management. The time I documented below is in addition to time spent performing reported procedures but includes the following listed in this critical care notation. Medical Decision Making - Medical Records Medical records reviewed: Yes: I reviewed the patient's medical records. - Isidoro Inquiry Pt receiving controlled substance: No Vital Signs: 07/28/20 12:10 07/28/20 12:24 07/28/20 13:15 Temperature 98.5 F 97.9 F Temperature Source Oral Oral Pulse Rate [Orthostatic Sitting Right Brachial] 67 Pulse Rate [Orthostatic Standing Right Brachial] 73 Pulse Rate [Radial] 68 Pulse Rate [Right Brachial] 67 68 Respiratory Rate 22 18 Blood Pressure [Orthostatic Sitting Right Arm] 150/77 H Blood Pressure [Orthostatic Standing Right Arm] 135/74 Blood Pressure [Right Arm] 150/77 H 159/77 H 148/74 H Blood Pressure Mean [Right Arm] 101 104 98 Blood Pressure Source [Right Arm] Automatic Cuff Automatic Cuff Automatic Cuff Blood Pressure Position [Right Arm] Sitting Sitting Sitting 02 Sat by Pulse Oximetry 99 99 99 Oxygen Delivery Method Room Air Room Air Room Air 07/28/20 14:04 Temperature Temperature Source Pulse Rate [Orthostatic Sitting Right Brachial] Pulse Rate [Orthostatic Standing Right Brachial] Pulse Rate [Radial] Pulse Rate [Right Brachial] 69 Respiratory Rate Blood Pressure [Orthostatic Sitting Right Arm] Blood Pressure [Orthostatic Standing Right Arm] Blood Pressure [Right Arm] 156/74 H Blood Pressure Mean [Right Arm] 101 Blood Pressure Source [Right Arm] Automatic Cuff Blood Pressure Position [Right Arm] Sitting 02 Sat by Pulse Oximetry 99 Oxygen Delivery Method Room Air - Lab Data Lab results reviewed: Yes: I reviewed the patient's lab results. Lab Results 07/28/20 12:37: WBC 6.1, RBC 4.25, Hgb 13.4, Hct 41.4, MCV 97.5, MCH 31.6 H, MCHC 32.5, RDW 12.1, Plt Count 252, MPV 6.8 L, Neut % (Auto) 72.9, Lymph % (Auto) 17.6, [place] % (Auto) 7.5, Eos % (Auto) 1.3, Baso % (Auto) 0.7, Neut # (Auto) 4.5, Lymph # (Auto) 1.1, [place] # (Auto) 0.5, Eos # (Auto) 0.1, Baso # (Auto) 0.0 07/28/20 12:37: Sodium 132 L, Potassium 4.1, Chloride 98, Carbon Dioxide 28, Anion Gap 10.1, BUN 6 L, Creatinine 0.60, Estimated Creat Clear 36, Estimated GFR 98, Est GFR ( Amer) 119, Glucose 124 H, Calcium 9.7, Total Bilirubin 0.7, AST 36, ALT 16, Alkaline Phosphatase 62, Troponin I < 0.01, Total Protein 7.2, Albumin 4.4, Globulin 2.8, Albumin/Globulin Ratio 1.6 07/28/20 12:37: Troponin I < 0.01, C-Reactive Protein < 0.3 07/28/20 12:37: ESR 11 07/28/20 12:37: SARS-CoV-2 IgG Ab (Rapid) Negative, SARS-CoV-2 IgM Ab (Rapid) Negative 07/28/20 13:27: Urine Color Yellow, Urine Appearance Clear, Urine pH 6.5, Ur Specific [place] <= 1.005, Urine Protein Negative, Urine Glucose (UA) Negative, Urine Ketones Negative, Urine Blood 1+, Urine Nitrate Negative, Urine Bilirubin Negative, Urine Urobilinogen 0.2, Ur Leukocyte Esterase Negative, Urine RBC 3-5, Urine WBC None, Ur Squamous Epith Cells Occasional, Amorphous Sediment 1+, Urine Bacteria None Result diagrams: 07/28/20 12:37 07/28/20 12:37 Orders (Tests/Meds): ED MEDICATIONS Discontinued Medications Generic Name Dose Route Start Last Admin Trade Name Freq PRN Reason Stop Dose Admin Sodium Chloride 1,000 mls @ 999 mls/hr 07/28/20 12:45 07/28/20 12:43 Sod Chlor 0.9% 1000ml Bag IV 07/28/20 13:45 999 mls/hr .Q1H1M GUME Administration Iopamid
[2020-07-28 14:04] VITALS: BP 156/74; PULSE 69; O2SAT 99
[2020-07-28 14:17] LABS: C-Reactive Protein < 0.3 mg/L (0-4)
[2020-07-28 14:24] LABS: Coronavirus 19 IgG Antibody Negative (Negative); Coronavirus 19 IgM Antibody Negative (Negative)
[2020-07-28 14:26] LABS: Troponin I < 0.01 ng/ml (0.00-0.034)
[2020-07-28 14:27] LABS: Erythrocyte Sedimentation Rate 11 mm/hr (0-30)
[2020-07-28 15:09] VITALS: BP 156/77; PULSE 78; RESP 16; TEMP 36.6; O2SAT 98
== END 2020-07-28 15:10 | disposition home or self-care (01) ==
PROVIDERS: Emergency Provider Emergency Medicine; PCP Internal Medicine Adolescent Medicine
DX: R42 Dizziness and giddiness (principal); I25.10 Atherosclerotic heart disease of native coronary artery without angina pectoris; E78.5 Hyperlipidemia, unspecified; I10 Essential (primary) hypertension; M79.7 Fibromyalgia; Z88.2 Allergy status to sulfonamides; Z79.899 Other long term (current) drug therapy
CPT/HCPCS: 70450; 70496; 70498; 71046; 80053; 81001; 84484; 85025; 85651; 86140; 86328; 93005; 96365; 99283; Q9967

== ENCOUNTER 2021-01-07 13:03 | Emergency (ER) | payer MEDICARE, SELFPAY ==
[2021-01-07 13:05] VITALS: BP 136/76; PULSE 68; RESP 18; TEMP 36.7; O2SAT 98; BMI 17.4
--- NOTE | 2021-01-07 13:20 | ECG_ITS ---
APPROVED REPORT Exam: Resting ECG HR:68 bpm ECG Measurements Heart Rate 68 AXES GA 136 P 86 QRSd 84 QRS 75 QT 402 T 81 QTc 427 Conclusion Normal sinus rhythm Biatrial enlargement Abnormal ECG Electronically signed by : Hosea Johnson, 01/08/2021 07:11:50
--- NOTE | 2021-01-07 13:22 | XR_ITS ---
PROCEDURE INFORMATION: Exam: XR Chest Exam date and time: 01/07/2021 1:22 PM Age: 75 years old Clinical indication: Pain; Chest pressure; Additional info: Chest pain TECHNIQUE: Imaging protocol: XR of the chest. Views: 1 view. COMPARISON: CR XR CHEST 2V 07/28/2020 12:43 PM FINDINGS: Tubes, catheters and devices: Overlying EKG wires Lungs: Hyperexpanded lung juarez consistent with COPD Pleural spaces: Unremarkable. No pleural effusion. No pneumothorax. Heart/Mediastinum: Unremarkable. No cardiomegaly. Bones/joints: Unremarkable. IMPRESSION: Hyperexpanded lung juarez consistent with COPD
[2021-01-07 13:32] LABS: Basophils # 0.1 K/mm3 (0-0.2); Basophils % 0.8 % (0.1-2.0); Eosinophils # 0.1 K/mm3 (0.0-0.4); Hematocrit 39.9 % (37.0-47.0); Hemoglobin 13.7 g/dL (12.2-16.2); Lymphocytes # 1.3 K/mm3 (0.7-4.5); Lymphocytes % 17.3 % (10-50); Mean Corpuscular HGB Conc 34.2 g/dL (31.8-35.4); Mean Corpuscular Hemoglobin 32.2 pg (27.0-31.2); Mean Corpuscular Volume 94.2 fl (81-99); Mean Platelet Volume 6.9 fl (7.4-10.4); Monocytes # 0.5 K/mm3 (0.1-1.0); Monocytes % 6.8 % (1.7-9.3); Neutrophils # 5.4 K/mm3 (1.8-7.8); Platelet Count 258 K/mm3 (142-424); Red Blood Count 4.24 M/mm3 (4.20-5.40); Red Cell Distribution Width 12.4 % (11.5-17.5); White Blood Count 7.3 K/mm3 (4.8-10.8)
[2021-01-07 13:37] VITALS: BP 158/84; PULSE 64; RESP 12
[2021-01-07 13:43] LABS: Anion Gap 8.9 mEq/L (5-15); Blood Urea Nitrogen 7 mg/dl (7-17); Calcium 9.2 mg/dl (8.4-10.2); Carbon Dioxide 26 mmol/L (22.0-30.0); Chloride 99 mmol/L (98-107); Creatinine Clearance Estimated 34 mL/min (50-200); Estimated Glomerular Filt Rate 98 ml/min (>60); GFR (African American) 119 ML/MIN (>60); Glucose 119 mg/dl (74-100); Potassium 3.9 mmoL/L (3.5-5.1); Sodium 130 mmol/L (136-145)
[2021-01-07 13:55] LABS: Troponin I < 0.01 ng/ml (0.00-0.034)
[2021-01-07 14:01] VITALS: BP 125/64; PULSE 65; RESP 14; O2SAT 98
--- NOTE | 2021-01-07 14:13 | HMH.EDGENADL ---
ED Disposition Clinical Impression: Epigastric pain Disposition: Home, Self-Care Condition on Discharge: Fair Instructions: DI for Epigastric Pain Additional Instructions: You have been evaluated for epigastric pain. Does not appear to be cardiac in nature. Possibly GI, ulcer, reflux. Please take omeprazole daily. Please take Carafate as needed. Avoid eating before bedtime. Follow-up with your primary care doctor in 24 to 48 hours for symptom recheck. You may benefit from upper endoscopy. Return to the emergency department for any new or worsening symptoms. Prescriptions: Sucralfate [Carafate 1gm/10mL Susp] 10 ml PO ACHS #100 ml Transmission Status: Pending to [facility] # Omeprazole [Omeprazole 20mg Capsule] 20 mg PO DAILY #30 cap Transmission Status: Pending to [facility] # Referrals: Hosea Johnson MD [Primary Care Provider] - Time of Disposition: 16:58 - Critical Care Critical Care Time: No Attestation: On 01/07/21, the high probability of a clinically significant, sudden or life threatening deterioration of the following system(s) required my full and direct attention, intervention and personal management. The time I documented below is in addition to time spent performing reported procedures but includes the following listed in this critical care notation. Medical Decision Making - Medical Records Medical records reviewed: Yes: I reviewed the patient's medical records. - Isidoro Inquiry Pt receiving controlled substance: No Vital Signs: 01/07/21 13:05 01/07/21 13:37 01/07/21 14:01 Temperature 98.1 F Temperature Source Oral Pulse Rate 64 65 Pulse Rate [Right] 68 Respiratory Rate 18 12 14 Blood Pressure 158/84 H 125/64 Blood Pressure [Right Arm] 136/76 Blood Pressure Mean 88 Blood Pressure Mean [Right Arm] 96 02 Sat by Pulse Oximetry 98 98 Oxygen Delivery Method Room Air 01/07/21 14:45 01/07/21 15:30 Temperature Temperature Source Pulse Rate 66 76 Pulse Rate [Right] Respiratory Rate 20 21 Blood Pressure 166/83 H 167/98 H Blood Pressure [Right Arm] Blood Pressure Mean Blood Pressure Mean [Right Arm] 02 Sat by Pulse Oximetry 98 99 Oxygen Delivery Method - Lab Data Lab Results 01/07/21 13:20: WBC 7.3, RBC 4.24, Hgb 13.7, Hct 39.9, MCV 94.2, MCH 32.2 H, MCHC 34.2, RDW 12.4, Plt Count 258, MPV 6.9 L, Neut % (Auto) 74.0, Lymph % (Auto) 17.3, Orange % (Auto) 6.8, Eos % (Auto) 1.0, Baso % (Auto) 0.8, Neut # (Auto) 5.4, Lymph # (Auto) 1.3, Orange # (Auto) 0.5, Eos # (Auto) 0.1, Baso # (Auto) 0.1 01/07/21 13:20: Sodium 130 L, Potassium 3.9, Chloride 99, Carbon Dioxide 26, Anion Gap 8.9, BUN 7, Creatinine 0.60, Estimated Creat Clear 34, Estimated GFR 98, Est GFR ( Amer) 119, Glucose 119 H, Calcium 9.2, Troponin I < 0.01 01/07/21 13:20: Lipase 169 01/07/21 15:23: Troponin I < 0.01 Result diagrams: 01/07/21 13:20 01/07/21 13:20 Orders (Tests/Meds): ED MEDICATIONS Generic Name Dose Route Start Last Admin Trade Name Freq PRN Reason Stop Dose Admin Sodium Chloride 8 ml 01/07/21 13:23 Sodium Chloride 0.9% 10ml Vial IV 02/06/21 13:22 NEEDED PRN dilute pepcid Discontinued Medications Generic Name Dose Route Start Last Admin Trade Name Freq PRN Reason Stop Dose Admin Aspirin 325 mg 01/07/21 13:23 01/07/21 13:27 Aspirin 325mg Tablet PO 01/07/21 13:24 325 mg ONCE ONE Administration Belladonna Alkaloids 60 ml 01/07/21 13:23 01/07/21 13:24 Gi Cocktail 60ml Udc PO 01/07/21 13:24 60 ml ONCE ONE Administration Famotidine 20 mg 01/07/21 13:23 01/07/21 13:24 Famotidine 20mg/2ml Vial IV 01/07/21 13:24 20 mg ONCE ONE Administration Sodium Chloride 1,000 mls @ 999 mls/hr 01/07/21 14:30 01/07/21 15:18 Sod Chlor 0.9% 1000ml Bag IV 01/07/21 15:30 999 mls/hr .Q1H1M GUME Administration Iopamidol 75 ml 01/07/21 14:35 01/07/21 14:36 Iopamidol-370 (76%)
--- NOTE | 2021-01-07 14:15 | CT_ITS ---
PROCEDURE INFORMATION: Exam: CT Abdomen And Pelvis With Contrast Exam date and time: 01/07/2021 2:15 PM Age: 75 years old Clinical indication: Abdominal pain; Epigastric; Additional info: Epigastric pain, abdomen TECHNIQUE: Imaging protocol: Computed tomography of the abdomen and pelvis with contrast. Radiation optimization: All CT scans at this facility use at least one of these dose optimization techniques: automated exposure control; mA and/or kV adjustment per patient size (includes targeted exams where dose is matched to clinical indication); or iterative reconstruction. Contrast material: ISOVUE; Contrast volume: 75 ml; Contrast route: IV; COMPARISON: CR XR ACUTE ABDOMEN SERIES 06/22/2019 2:45 PM FINDINGS: Liver: Normal. No mass. Gallbladder and bile ducts: Normal. No calcified stones. No ductal dilation. Pancreas: Normal. No ductal dilation. Spleen: Normal. No splenomegaly. Adrenal glands: Normal. No mass. Kidneys and ureters: 14 mm simple cyst left kidney . No follow-up imaging recommended . Stomach and bowel: Unremarkable. No obstruction. No mucosal thickening. Appendix: The appendix is not identified.. Intraperitoneal space: Unremarkable. No free air. No significant fluid collection. Vasculature: Unremarkable. No abdominal aortic aneurysm. Lymph nodes: Unremarkable. No enlarged lymph nodes. Urinary bladder: Unremarkable as visualized. Reproductive: Varices associated with the uterus Bones/joints: Unremarkable. No acute fracture. Soft tissues: Unremarkable. IMPRESSION: The appendix is not identified.. Acute appendicitis cannot be ruled out. If acute appendicitis is suspected clinically, recommend repeat study with oral contrast after oral contrast reaches the rectum. COMMENTS: Consistent with the [employer]'s Incidental Findings Committee white paper (J Am Joe Radiol 2018): Any incidental renal lesion less than 1 cm or classified as too small to characterize, or any incidental cystic renal lesion characterized as simple-appearing, is likely benign. No follow-up imaging is recommended for these lesions per consensus recommendations based on imaging criteria.
[2021-01-07 14:28] LABS: Lipase 169 U/L (23-300)
[2021-01-07 14:45] VITALS: BP 166/83; PULSE 66; RESP 20; O2SAT 98
[2021-01-07 15:30] VITALS: BP 167/98; PULSE 76; RESP 21; O2SAT 99
--- NOTE | 2021-01-07 15:31 | PC.NURSE ---
Patient advised while I was getting her second troponin that she has had these episodes of shaking in her right arm over the last few mins. Patient was alert and oriented at this time, able to speak in full sentences, and states it has been going on for a few weeks randomly, but goes away. I advised MD Beth of this.
[2021-01-07 15:51] LABS: Troponin I < 0.01 ng/ml (0.00-0.034)
[2021-01-07 17:10] VITALS: BP 155/82; PULSE 71; RESP 18; TEMP 36.7; O2SAT 98
== END 2021-01-07 17:13 | disposition home or self-care (01) ==
PROVIDERS: Emergency Provider Emergency Medicine; PCP Internal Medicine Adolescent Medicine
DX: R10.13 Epigastric pain (principal); R42 Dizziness and giddiness; K21.9 Gastro-esophageal reflux disease without esophagitis; E78.5 Hyperlipidemia, unspecified; I10 Essential (primary) hypertension; E03.9 Hypothyroidism, unspecified; M79.7 Fibromyalgia; Z88.2 Allergy status to sulfonamides; Z79.899 Other long term (current) drug therapy
CPT/HCPCS: 71045; 74177; 80048; 83690; 84484; 85025; 93005; 96365; 96375; 99282; Q9967

== ENCOUNTER → 2021-01-20 11:38 | Outpatient (CLI) | payer MEDICARE, SELFPAY ==
[2021-01-20 12:03] LABS: Basophils # 0.1 K/mm3 (0-0.2); Basophils % 1.3 % (0.1-2.0); Eosinophils # 0.1 K/mm3 (0.0-0.4); Eosinophils % 2.3 % (0.1-12.0); Hematocrit 36.9 % (37.0-47.0); Hemoglobin 12.4 g/dL (12.2-16.2); Lymphocytes % 18.9 % (10-50); Mean Corpuscular HGB Conc 33.6 g/dL (31.8-35.4); Mean Corpuscular Hemoglobin 32.3 pg (27.0-31.2); Mean Corpuscular Volume 96.1 fl (81-99); Mean Platelet Volume 6.9 fl (7.4-10.4); Monocytes # 0.4 K/mm3 (0.1-1.0); Monocytes % 8.8 % (1.7-9.3); Neutrophils # 3.4 K/mm3 (1.8-7.8); Neutrophils % 68.6 % (37.0-80.0); Platelet Count 227 K/mm3 (142-424); Red Blood Count 3.84 M/mm3 (4.20-5.40); Red Cell Distribution Width 12.2 % (11.5-17.5)
[2021-01-20 13:45] LABS: Alanine Aminotransferase 17 U/L (12-78); Albumin Level 3.9 g/dl (3.5-5.0); Albumin/Globulin Ratio 1.7 (1.1-1.8); Alkaline Phosphatase 46 U/L (38-126); Anion Gap 9.8 mEq/L (5-15); Aspartate Amino Transferase 28 U/L (14-36); Bilirubin,Total 0.5 mg/dl (0.2-1.3); Blood Urea Nitrogen 8 mg/dl (7-17); Calcium 8.8 mg/dl (8.4-10.2); Carbon Dioxide 26 mmol/L (22.0-30.0); Chloride 101 mmol/L (98-107); Estimated Glomerular Filt Rate 98 ml/min (>60); GFR (African American) 119 ML/MIN (>60); Globulin 2.3 g/dL (1.3-3.2); Glucose 136 mg/dl (74-100); Magnesium 1.9 mg/dl (1.6-2.3); Potassium 3.8 mmoL/L (3.5-5.1); Sodium 133 mmol/L (136-145); Total Protein,Serum 6.2 g/dl (6.3-8.2)
[2021-01-20 14:01] LABS: 25-OH Vitamin D, Total 46.1 ng/mL (30-100)
[2021-01-20 14:16] LABS: Thyroid Stimulating Hormone 1.74 uIU/mL (0.465-4.68)
[2021-01-20 14:34] LABS: Vitamin B12 424 pg/mL (239-931)
== END ==
PROVIDERS: Visit Provider Nurse Practitioner Family
DX: R53.83 Other fatigue (principal); R20.2 Paresthesia of skin
CPT/HCPCS: 80053; 82306; 82607; 83735; 84443; 85025

== ENCOUNTER → 2021-04-17 09:10 | Outpatient (CLI) | payer MEDICARE, SELFPAY ==
--- NOTE | 2021-04-17 09:13 | MM_ITS ---
PROCEDURE: MM DIG SCREENING MAMM BI W/CAD Digital Breast Tomosynthesis Included CLINICAL INDICATION: SCREENING COMPARISON: MG DMSB DIG MAMM-SCREEN RUT W/CAD from 07/28/2017 MG SCBI MM Dig screening mamm BI w/CAD from 07/31/2018 MG MM DIG SCREENING MAMM BI W/CAD from 08/09/2019 TECHNIQUE: Standard CC and MLO images and 3D Tomosynthesis was obtained. R2 CAD reviewed. FINDINGS: The breasts are heterogeneously dense which may obscure small masses. There are bilateral benign-appearing calcifications. A stable 5 mm nodules noted in the medial aspect of the right breast. Postsurgical changes are present involving the lower aspect of the left breast with some skin dimpling at this area. A coarse calcified nodules present in the 6 o'clock region of the left breast posterior 1/3 consistent with a fibroadenoma. No suspicious appearing mass, malignant-appearing microcalcification, architectural distortion, or skin thickening.. No significant change IMPRESSION: Benign findings. No evidence of malignancy with no significant change BI-RAD Category: 2 Benign Finding FOLLOW-UP: 1 YR 1 Year Follow-up (A letter has been sent to the patient regarding results of the study.) Dictated by: Wilmer Porras MD 04/27/2021 10:30 Wilmer Porras MD in [facility] 04/27/2021 10:30
--- NOTE | 2021-04-17 09:13 | XR_ITS ---
PROCEDURE: XR DEXA AXIAL SKELETON CLINICAL HISTORY: OSTEOPOROSIS, W/O CURRENT FRACTURE COMPARISON: CR,DX BONE3 BONE DENSITOMETRY(HIP:LT SPINE from 07/23/2016 FINDINGS: The right hip BMD is 0.460 with a T-score of -3.5. The left hip BMD is 0.512 with a T-score of -3.0. The lumbar spine BMD is 0.761 with a T-score of -2.6. Previously the lowest density was in the right femoral neck with a T-score -3.1 IMPRESSION: This patient is considered osteoporotic according to the World Health Organization criteria. Fracture risk is high. Treatment is advised. Based on these results a follow-up exam is recommended in 1 year. Dictated by: Wilmer Porras MD 04/17/2021 10:00 Wilmer Porras MD in [facility] 04/17/2021 10:00
--- NOTE | 2021-04-17 09:56 | XR_ITS ---
PROCEDURE: XR SHOULDER RT MIN 2V CLINICAL INDICATION: RT UPPER LIMB PAIN COMPARISON: No exams were available for comparison FINDINGS: There is diffuse osteopenia. No acute fracture or dislocation. No lytic or blastic change. No significant subacromial stenosis or degenerative change. The joint spaces are well-preserved. No significant degenerative/arthritic changes. No erosive changes evident. Other findings:None. IMPRESSION: No acute findings. Dictated by: Wilmer Porras MD 04/17/2021 11:55 Wilmer Porras MD in [facility] 04/17/2021 11:55
== END ==
PROVIDERS: PCP Nurse Practitioner Family; Visit Provider Nurse Practitioner Family
DX: Z12.31 Encounter for screening mammogram for malignant neoplasm of breast (principal); M81.0 Age-related osteoporosis without current pathological fracture; M79.601 Pain in right arm
CPT/HCPCS: 73030; 77063; 77067; 77080

== ENCOUNTER 2021-05-09 14:26 | Emergency (ER) | payer MEDICARE, SELFPAY ==
[2021-05-09 14:27] VITALS: BP 187/90; PULSE 64; RESP 18; TEMP 36.7; O2SAT 99; BMI 18.8
--- NOTE | 2021-05-09 14:33 | ECG_ITS ---
APPROVED REPORT Exam: Resting ECG HR:58 bpm ECG Measurements Heart Rate 58 AXES OK 138 P 75 QRSd 80 QRS 73 QT 410 T 65 QTc 402 Conclusion Sinus bradycardia Biatrial enlargement Late R wave progresson Abnormal ECG Electronically signed by : Hosea Johnson MD 05/09/2021 21:07:47
--- NOTE | 2021-05-09 14:36 | XR_ITS ---
PROCEDURE: XR CHEST PORTABLE CLINICAL HISTORY: soa COMPARISON: CR CXR1 CHEST-PORTABLE from 05/15/2017 CR XR CHEST 2V from 07/28/2020 CR XR CHEST PORTABLE from 01/07/2021 FINDINGS: Borderline cardiomegaly without failure. COPD changes. Surgical clips are noted along the left lower hemithorax No acute bony abnormalities. IMPRESSION: COPD. No change with no acute finding Dictated by: Wilmer Porras MD 05/09/2021 15:19 Wilmer Porras MD in [facility] 05/09/2021 15:19
[2021-05-09 14:48] LABS: Basophils # 0.1 K/mm3 (0-0.2); Basophils % 0.9 % (0.1-2.0); Eosinophils # 0.1 K/mm3 (0.0-0.4); Eosinophils % 1.5 % (0.1-12.0); Hematocrit 39.3 % (37.0-47.0); Hemoglobin 13.4 g/dL (12.2-16.2); Lymphocytes # 1.7 K/mm3 (0.7-4.5); Lymphocytes % 25.4 % (10-50); Mean Corpuscular HGB Conc 34.2 g/dL (31.8-35.4); Mean Corpuscular Hemoglobin 32.7 pg (27.0-31.2); Mean Corpuscular Volume 95.6 fl (81-99); Mean Platelet Volume 6.6 fl (7.4-10.4); Monocytes # 0.5 K/mm3 (0.1-1.0); Monocytes % 7.3 % (1.7-9.3); Neutrophils # 4.2 K/mm3 (1.8-7.8); Platelet Count 240 K/mm3 (142-424); Red Blood Count 4.11 M/mm3 (4.20-5.40); Red Cell Distribution Width 11.9 % (11.5-17.5); White Blood Count 6.5 K/mm3 (4.8-10.8)
[2021-05-09 14:50] LABS: Chloride 96 mmol/L (98-107); Potassium 3.8 mmoL/L (3.5-5.1); Sodium 130 mmol/L (136-145)
[2021-05-09 14:52] LABS: Blood Urea Nitrogen 7 mg/dl (7-17); Estimated Glomerular Filt Rate 121 ml/min (>60); GFR (African American) 146 ML/MIN (>60)
[2021-05-09 14:53] LABS: Alanine Aminotransferase 18 U/L (12-78); Albumin Level 4.2 g/dl (3.5-5.0); Albumin/Globulin Ratio 1.6 (1.1-1.8); Alkaline Phosphatase 60 U/L (38-126); Anion Gap 12.8 mEq/L (5-15); Aspartate Amino Transferase 39 U/L (14-36); Bilirubin,Total 0.6 mg/dl (0.2-1.3); Calcium 9.3 mg/dl (8.4-10.2); Carbon Dioxide 25 mmol/L (22.0-30.0); Globulin 2.6 g/dL (1.3-3.2); Glucose 125 mg/dl (74-100); Total Protein,Serum 6.8 g/dl (6.3-8.2)
[2021-05-09 15:07] LABS: Troponin I < 0.01 ng/ml (0.00-0.034)
[2021-05-09 15:19] VITALS: BMI 18.8
--- NOTE | 2021-05-09 15:30 | HMH.EDGENADL ---
ED Disposition Clinical Impression: GERD (gastroesophageal reflux disease), Chest pain Disposition: Home, Self-Care Condition on Discharge: Good Additional Instructions: Follow-up with your primary care physician within the next few days otherwise return the emergency department for worsening dizziness chest pain or any other concerns within the next 24 hours Prescriptions: Famotidine/Ca Carb/Mag Hydrox [Pepcid Complete Tablet Chew] 1 each PO BID 15 Days #30 tab Transmission Status: Pending to [id number] Referrals: Liudmila Marvin APRN [Primary Care Provider] - - Critical Care Critical Care Time: No Attestation: On 05/09/21, the high probability of a clinically significant, sudden or life threatening deterioration of the following system(s) required my full and direct attention, intervention and personal management. The time I documented below is in addition to time spent performing reported procedures but includes the following listed in this critical care notation. Medical Decision Making - Medical Records Medical records reviewed: Yes: I reviewed the patient's medical records. - Isidoro Inquiry Pt receiving controlled substance: No Vital Signs: 05/09/21 14:27 05/09/21 16:00 Temperature 98.1 F Temperature Source Oral Pulse Rate 54 L Pulse Rate [Right Radial] 64 Respiratory Rate 18 18 Blood Pressure 181/91 H Blood Pressure [Right Arm] 187/90 H Blood Pressure Mean [Right Arm] 122 Blood Pressure Source [Right Arm] Automatic Cuff Blood Pressure Position [Right Arm] Sitting 02 Sat by Pulse Oximetry 99 99 Oxygen Delivery Method Room Air - Lab Data Lab Results 05/09/21 14:40: WBC 6.5, RBC 4.11 L, Hgb 13.4, Hct 39.3, MCV 95.6, MCH 32.7 H, MCHC 34.2, RDW 11.9, Plt Count 240, MPV 6.6 L, Neut % (Auto) 65.0, Lymph % (Auto) 25.4, Stone % (Auto) 7.3, Eos % (Auto) 1.5, Baso % (Auto) 0.9, Neut # (Auto) 4.2, Lymph # (Auto) 1.7, Stone # (Auto) 0.5, Eos # (Auto) 0.1, Baso # (Auto) 0.1 05/09/21 14:40: Sodium 130 L, Potassium 3.8, Chloride 96 L, Carbon Dioxide 25, Anion Gap 12.8, BUN 7, Creatinine 0.50 L, Estimated GFR 121, Est GFR ( Amer) 146, Glucose 125 H, Calcium 9.3, Total Bilirubin 0.6, AST 39 H, ALT 18, Alkaline Phosphatase 60, Troponin I < 0.01, Total Protein 6.8, Albumin 4.2, Globulin 2.6, Albumin/Globulin Ratio 1.6 Result diagrams: 05/09/21 14:40 05/09/21 14:40 Orders (Tests/Meds): ED MEDICATIONS Discontinued Medications Generic Name Dose Route Start Last Admin Trade Name Freq PRN Reason Stop Dose Admin Belladonna Alkaloids 60 ml 05/09/21 14:37 05/09/21 15:30 Gi Cocktail 60ml Udc PO 05/09/21 14:38 60 ml ONCE ONE Administration Famotidine 40 mg 05/09/21 15:34 05/09/21 15:35 Famotidine 20mg Tablet PO 05/09/21 15:35 40 mg ONCE ONE Administration Sodium Chloride 1,000 mls @ 999 mls/hr 05/09/21 15:15 05/09/21 15:30 Sod Chlor 0.9% 1000ml Bag IV 05/09/21 16:15 999 mls/hr .Q1H1M GUME Administration Ondansetron HCl 4 mg 05/09/21 15:34 05/09/21 15:36 Ondansetron 4mg Odt SL 05/09/21 15:35 4 mg ONCE ONE Administration ORDERS Category Date Time Status Troponin I Q3H Lab 05/09/21 17:45 Ordered Troponin I Q3H Lab 05/09/21 20:45 Ordered Medical Decision Narrative: 75-year-old female presents with lightheadedness. She appears to be mildly hyponatremic and has not eaten this morning, given IV fluids. No other chest or abdominal emergency identified. She does have reflux as well plan to treat symptomatically. Atypical for myocardial infarction EKG and troponin were unremarkable. Chest x-ray shows no evidence of pneumonia. Reflux improved with Pepcid. Dizziness improved as well. Observed in the emergency department and she is feeling better after IV fluids. Plan to discharge at this time with return precautions General Adult HPI - General Chief complaint: Dizziness Stated complaint: heartburn, high BP Time Se
[2021-05-09 16:00] VITALS: BP 181/91; PULSE 54; RESP 18; O2SAT 99
[2021-05-09 17:17] VITALS: BP 175/89; PULSE 72; RESP 18; TEMP 36.7; O2SAT 100
== END 2021-05-09 17:17 | disposition home or self-care (01) ==
PROVIDERS: Emergency Provider Emergency Medicine; PCP Nurse Practitioner Family
DX: K21.9 Gastro-esophageal reflux disease without esophagitis (principal); R07.9 Chest pain, unspecified; Z88.2 Allergy status to sulfonamides; Z88.8 Allergy status to other drugs, medicaments and biological substances; Z79.891 Long term (current) use of opiate analgesic; Z79.899 Other long term (current) drug therapy; I25.10 Atherosclerotic heart disease of native coronary artery without angina pectoris; E78.5 Hyperlipidemia, unspecified; I10 Essential (primary) hypertension; F32.9 Major depressive disorder, single episode, unspecified; I49.9 Cardiac arrhythmia, unspecified
CPT/HCPCS: 71045; 80053; 84484; 85025; 93005; 96365; 99283

== ENCOUNTER 2021-08-01 14:00 | Outpatient (RCR) | payer MEDICARE, SELFPAY ==
--- NOTE | 2021-07-16 13:31 | HMH.PTOPEV ---
PT Outpatient Evaluation Rehab PT Outpatient Evaluation Start: 07/16/21 13:21 Freq: Status: Active Protocol: Document 07/16/21 13:21 TUAN (Rec: 07/16/21 13:31 TUAN [id number]) Electronically Signed By Lonnie Mcdowell, PT 07/16/21 13:21 Outpatient Therapy Subjective History Subjective History Pt reports insidious onset right shoulder pain beginning ~2 months ago. Pt reports pain progressed to referred pain down RUE to elbow area, and intermittently into Right UT mm. Pt reports right shoulder weakness, and compensation w/ nondominant UE (lUE). Chief Complaint Pain,Stiff,Paresthesia, Weakness Symptom Type Ache,Sharp,Dull Symptoms Relieved By Rest/Positioning,Heat,Ice Symptoms Aggravated By Physical Activity Prior Functional Limitations Reaching,Lifting,Housework Current Functional Limitations Reaching,Lifting,Housework Symptom Description Constant but Variable Level of pain today (0-10) 0 Pain scale - at its best (0-10) 0 Pain scale - at its worst (0-10) 10 Shoulder/Elbow Eval Shoulder Objective Measurements Palpation Tenderness tenderness shoulder exam standard right tenderness over the bicipital tendon right shoulder exam standard tenderness over the SA bursa shoulder right exam standard Shoulder Palpation Findings Tenderness Shoulder Palpation Overall Comment 3/4 (ant RTC, post RTC, UTmm) Posture Shoulder Posture Sitting Position (R) Rounded Shoulder Posture Standing Position (R) Rounded Flexibilty Deficits Upper Trapezius Muscle Length (R) Moderate Tightness Shoulder ROM Right Shoulder ROM Limitations Pain Shoulder Abduction Active Range of 0-140 Motion (degrees) Shoulder Flexion Active Range of Motion 0-145 (degrees) Query Text: Shoulder MMT Upper Trapezius/Levator Scapulae 5 Normal Shoulder Abduction Strength Grade 3+ Fair+ Shoulder Flexion Strength Grade 3+ Fair+ Shoulder External Rotation Strength 4- Good- Grade Shoulder Internal Rotation Strength 4 Good Grade Supraspinatus Strength Grade 3+ Fair+ Shoulder Special Tests impingement sign present shoulder exam right standard Shoulder Drop Arm Test Negative Right Shoulder Cross-Over Impingement Test Positive Right Shoulder Empty Can (Supraspinatus) Test Positive Right Shoulder Thomas-Bennett Impingement Positive Right Test Shoulder Anterior Load and Shift Test Negati
== END 2021-08-01 14:05 | disposition home or self-care (01) ==
LOC: PT 14:00
PROVIDERS: PCP Nurse Practitioner Family; Visit Provider Nurse Practitioner Family
DX: M25.511 Pain in right shoulder (principal); M54.2 Cervicalgia; G89.29 Other chronic pain
CPT/HCPCS: 97010; 97014; 97035; 97110; 97140; 97163; G0283

== ENCOUNTER 2021-11-30 12:48 | Emergency (ER) | payer MEDICARE, SELFPAY ==
[2021-11-30 13:51] VITALS: BP 176/71; PULSE 64; RESP 20; TEMP 36.8; O2SAT 99; BMI 18.4
--- NOTE | 2021-11-30 13:52 | XR_ITS ---
FINAL REPORT CLINICAL HISTORY: knee pain and swelling no injury FINDINGS: RIGHT KNEE Three views were obtained. There is no acute fracture or dislocation. There is mild degenerative change. There is medial compartment narrowing. There is a partial medial meniscal calcification. No soft tissue abnormality is identified. IMPRESSION: Degenerative and chronic appearing findings. Reviewed, Interpreted and Dictated by Siddharth Flor III, MD Transcribed by Fidelia Camacho Authenticated by Siddharth Flor III, MD on 11/30/2021 03:15:03 PM [facility]
--- NOTE | 2021-11-30 14:07 | HMH.EDUTC ---
[facility] [place] Impression: Knee pain Qualifiers: Chronicity: unspecified Laterality: right Qualified Code(s): M25.561 - Pain in right knee Disposition: Home, Self-Care Condition on Discharge: Good Instructions: How To Perform RICE (Rest, Ice, Compress, Elevate), How to Apply an Dioni Wrap, DI for Knee Pain Additional Instructions: *weight bearing as tolerated *RICE, Rest the extremity, Ice 15-20 minutes 3-4 times daily, Compress- wear the dioni wrap as discussed as much as possible to help reduce swelling and pain, Elevate the extremity when at rest *Dioni wrap is for support and help control swelling, use it except in the shower. Be sure that is not to tight but not to loose either *Elevate when resting *Ibuprofen as directed on package every 6-8 hours as needed for pain an inflammation. If need something more can take Tylenol in between doses of Ibuprofen to help Immediately follow up with your family doctor for new or worsening of symptoms, or no noticeable improvement over the next 3-5 days Referrals: Liudmila Marvin APRN [Primary Care Provider] - As needed Time of Disposition: 15:41 Medical Decision Making - Isidoro Inquiry Pt receiving controlled substance: No Isidoro was queried for this patient: No Vital Signs: 11/30/21 13:51 Temperature 98.3 F Temperature Source Oral Pulse Rate [Left Radial] 64 Respiratory Rate 20 Blood Pressure [Right Arm] 176/71 H Blood Pressure Mean [Right Arm] 106 Blood Pressure Source [Right Arm] Automatic Cuff Blood Pressure Position [Right Arm] Sitting 02 Sat by Pulse Oximetry 99 Oxygen Delivery Method Room Air - Lab Data Lab results reviewed: Yes: I reviewed the patient's lab results. Lab Results 11/30/21 14:07: Uric Acid 2.9 - Radiology Data #1 Image(s): Knee Image Reviewed: Yes I reviewed the patient's radiology image Preliminary Findings: No Fracture Seen IMPRESSION: Degenerative and chronic appearing findings. [facility] [place] - [place] Stated complaint: right knee pain Time Seen by Provider: 11/30/21 14:07 Mode of Arrival: Ambulatory Source of Information: Patient Limitations: No Limitations Description of Symptoms (Recalled from Triage Doc. by RN): C/O SORE RIGHT KNEE, SWOLLEN, TINGLING AND HURTING SINCE LAST WEEKEND. HEENT Symptoms (Recalled from RN notes): No Resp Symptoms (Recalled from RN notes): No Skin Symptoms (Recalled from RN notes): No MS Symptoms (Recalled from RN notes): Yes Functional Status (Recalled from RN notes): NA - History of Present Illness Provider Complaint: Patient states that she has been having pain and swelling on and off in her right knee for about a week States that she has pain and tingly like feeling in her knee and at times swelling is worse States that today she was having some swelling and pain so she came in - Related Data Home Medications Medication Instructions Recorded Confirmed alprazolam 1 mg tablet 0.5 mg PO QDAY tab 08/12/17 11/24/18 aspirin 81 mg tablet,delayed 81 mg PO QDAY 08/12/17 11/24/18 release losartan 50 mg tablet 100 mg PO DAILY tab 11/24/18 11/24/18 Previous Rx's Medication Instructions Recorded atorvastatin 10 mg tablet 10 mg PO QDAY #30 tab 05/27/19 carvedilol 12.5 mg tablet 12.5 mg PO BID #60 tab 06/14/19 Meclizine HCl [Meclizine 12.5mg 12.5 mg PO TID PRN #15 tab 06/22/19 Tab] Omeprazole [Omeprazole 20mg 20 mg PO DAILY #7 cap 06/22/19 Capsule] Omeprazole [Omeprazole 20mg 20 mg PO DAILY #30 cap 01/07/21 Capsule] Sucralfate [Carafate 1gm/10mL 10 ml PO ACHS #100 ml 01/07/21 Susp] Famotidine/Ca Carb/Mag Hydrox 1 each PO BID 15 Days #30 tab 05/09/21 [Pepcid Complete Tablet Chew] Allergies Allergy/AdvReac Type Severity Reaction Status Date / Time Sulfa (Sulfonamide Allergy Severe S-SWELLS-OR Verified 11/24/18 13:28 Antibiotics) AL/THROAT [SULFA (SULFONAMIDE ANTIBIOTICS)] hydrochlorothiazide Allergy Verified 07/28/20 12:32 - Wor
[2021-11-30 15:34] LABS: Uric Acid 2.9 mg/dl (2.5-6.2)
[2021-11-30 15:43] VITALS: BP 176/71; PULSE 64; RESP 99; TEMP 36.8
== END 2021-11-30 15:48 | disposition home or self-care (01) ==
PROVIDERS: Emergency Provider Nurse Practitioner; PCP Nurse Practitioner Family
DX: M25.561 Pain in right knee (principal); M79.7 Fibromyalgia; I10 Essential (primary) hypertension
CPT/HCPCS: 73562; 84550; 99213; G0463

== ENCOUNTER → 2022-01-18 08:43 | Outpatient (CLI) | payer MEDICARE, SELFPAY ==
[2022-01-18 10:07] LABS: Basophils # 0.1 K/mm3 (0-0.2); Basophils % 1.7 % (0.1-2.0); Eosinophils # 0.1 K/mm3 (0.0-0.4); Eosinophils % 3.1 % (0.1-12.0); Hemoglobin 14.2 g/dL (12.2-16.2); Lymphocytes # 1.1 K/mm3 (0.7-4.5); Lymphocytes % 25.1 % (10-50); Mean Corpuscular HGB Conc 33.1 g/dL (31.8-35.4); Mean Corpuscular Hemoglobin 32.9 pg (27.0-31.2); Mean Corpuscular Volume 99.4 fl (81-99); Mean Platelet Volume 7.6 fl (7.4-10.4); Monocytes # 0.4 K/mm3 (0.1-1.0); Monocytes % 8.9 % (1.7-9.3); Neutrophils # 2.8 K/mm3 (1.8-7.8); Neutrophils % 61.1 % (37.0-80.0); Platelet Count 255 K/mm3 (142-424); Red Blood Count 4.33 M/mm3 (4.20-5.40); Red Cell Distribution Width 12.6 % (11.5-17.5); White Blood Count 4.5 K/mm3 (4.8-10.8)
[2022-01-18 10:21] LABS: Hemoglobin A1C 5.6 % (4.0-6.0)
[2022-01-18 10:50] LABS: Alanine Aminotransferase 19 U/L (12-78); Albumin Level 4.1 g/dl (3.5-5.0); Albumin/Globulin Ratio 1.7 (1.1-1.8); Alkaline Phosphatase 52 U/L (38-126); Anion Gap 9.6 mEq/L (5-15); Aspartate Amino Transferase 37 U/L (14-36); Bilirubin,Total 0.5 mg/dl (0.2-1.3); Blood Urea Nitrogen 8 mg/dl (7-17); Calcium 9.4 mg/dl (8.4-10.2); Carbon Dioxide 29 mmol/L (22.0-30.0); Chloride 99 mmol/L (98-107); Chol/HDL Ratio 2.2 (1-3.5); Cholesterol 164 mg/dl (140-200); Estimated Glomerular Filt Rate 98 ml/min (>60); GFR (African American) 118 ML/MIN (>60); Globulin 2.4 g/dL (1.3-3.2); Glucose 108 mg/dl (74-100); HDL Cholesterol 73 mg/dl (40-60); Potassium 3.6 mmoL/L (3.5-5.1); Sodium 134 mmol/L (136-145); Total Protein,Serum 6.5 g/dl (6.3-8.2); Triglycerides 79 mg/dl (30-150); VLDL Cholesterol 16 mg/dL (0-40)
[2022-01-18 11:04] LABS: Direct LDL Cholesterol 63.97 mg/dL (100-129)
[2022-01-18 11:06] LABS: Free T4 (Free Thyroxine) 1.31 ng/dl (0.78-2.19)
[2022-01-18 11:11] LABS: 25-OH Vitamin D, Total 43.3 ng/mL (30-100)
[2022-01-18 11:23] LABS: Thyroid Stimulating Hormone 3.19 uIU/mL (0.465-4.68)
[2022-01-18 11:59] LABS: Vitamin B12 440 pg/mL (239-931)
[2022-01-18 12:00] LABS: Folate > 20.00 ng/mL
== END ==
PROVIDERS: PCP Nurse Practitioner Family; Visit Provider Nurse Practitioner Family
DX: E03.9 Hypothyroidism, unspecified (principal); I10 Essential (primary) hypertension; E53.8 Deficiency of other specified B group vitamins; R20.2 Paresthesia of skin; M81.0 Age-related osteoporosis without current pathological fracture; Z79.899 Other long term (current) drug therapy
CPT/HCPCS: 36415; 80053; 80061; 82306; 82607; 82746; 83036; 84439; 84443; 85025

== ENCOUNTER 2022-05-10 00:37 | Emergency (ER) | payer MEDICARE, SELFPAY ==
--- NOTE | 2022-05-10 00:47 | ECG_ITS ---
APPROVED REPORT Exam: Resting ECG HR:64 bpm ECG Measurements Heart Rate 64 AXES MN 140 P 82 QRSd 84 QRS 71 QT 412 T 81 QTc 422 Conclusion SINUS RHYTHM POSSIBLE RIGHT VENTRICULAR CONDUCTION DELAY [RSR (QR) IN V1/V2] BORDERLINE ECG UNCONFIRMED REPORT Electronically signed by : Hosea Johnson MD 05/10/2022 13:50:34
[2022-05-10 00:56] VITALS: BP 138/75; BP 166/77; BP 170/83; PULSE 64; PULSE 65
[2022-05-10 00:58] VITALS: BP 172/92; PULSE 60; RESP 16; TEMP 36.8; O2SAT 100; BMI 20.1
--- NOTE | 2022-05-10 01:05 | XR_ITS ---
PROCEDURE INFORMATION: Exam: XR Chest Exam date and time: 05/10/2022 1:36 AM Age: 76 years old Clinical indication: Other: Dizziness TECHNIQUE: Imaging protocol: Radiologic exam of the chest. Views: 2 views. COMPARISON: CR XR CHEST PORTABLE 05/09/2021 2:51 PM FINDINGS: Lungs: Lungs are hyperexpanded, compatible chronic obstructive pulmonary physiologic changes. Calcified granuloma within the right lower lobe. Pleural spaces: Unremarkable. No pleural effusion. No pneumothorax. Heart/Mediastinum: Normal. Bones/joints: Mild multilevel thoracic spine degenerative changes. IMPRESSION: No acute cardiopulmonary abnormality.
--- NOTE | 2022-05-10 01:05 | CT_ITS ---
PROCEDURE INFORMATION: Exam: CT Head Without Contrast Exam date and time: 05/10/2022 1:42 AM Age: 76 years old Clinical indication: Dizziness TECHNIQUE: Imaging protocol: Computed tomography of the head without contrast. Radiation optimization: All CT scans at this facility use at least one of these dose optimization techniques: automated exposure control; mA and/or kV adjustment per patient size (includes targeted exams where dose is matched to clinical indication); or iterative reconstruction. COMPARISON: CT HEAD/BRAIN WO CON 07/28/2020 1:30 PM FINDINGS: Brain: Periventricular and subcortical white matter areas of hypoattenuation, likely chronic small vessel ischemic change, demyelination, or gliosis. There is parenchymal atrophy. No intracranial mass, acute hemorrhage, or acute infarction. Cerebral ventricles: No ventriculomegaly. Paranasal sinuses: Visualized sinuses are unremarkable. No fluid levels. Mastoid air cells: Normal as visualized. Bones/joints: Normal. Soft tissues: Unremarkable. IMPRESSION: No acute intracranial abnormality.
[2022-05-10 01:33] LABS: Basophils # 0.1 K/mm3 (0-0.2); Eosinophils # 0.2 K/mm3 (0.0-0.4); Eosinophils % 1.5 % (0.1-12.0); Hematocrit 37.3 % (37.0-47.0); Hemoglobin 13.4 g/dL (12.2-16.2); Lymphocytes # 1.7 K/mm3 (0.7-4.5); Lymphocytes % 17.3 % (10-50); Mean Corpuscular HGB Conc 35.8 g/dL (31.8-35.4); Mean Corpuscular Hemoglobin 34.5 pg (27.0-31.2); Mean Corpuscular Volume 96.2 fl (81-99); Mean Platelet Volume 7.2 fl (7.4-10.4); Monocytes # 0.7 K/mm3 (0.1-1.0); Monocytes % 7.2 % (1.7-9.3); Neutrophils # 7.2 K/mm3 (1.8-7.8); Neutrophils % 72.9 % (37.0-80.0); Platelet Count 288 K/mm3 (142-424); Red Blood Count 3.88 M/mm3 (4.20-5.40); Red Cell Distribution Width 12.5 % (11.5-17.5); White Blood Count 9.8 K/mm3 (4.8-10.8)
[2022-05-10 01:38] LABS: Chloride 93 mmol/L (98-107); Potassium 4.1 mmoL/L (3.5-5.1); Sodium 129 mmol/L (136-145)
[2022-05-10 01:41] LABS: Alanine Aminotransferase 19 U/L (12-78); Albumin Level 4.3 g/dl (3.5-5.0); Albumin/Globulin Ratio 1.7 (1.1-1.8); Alkaline Phosphatase 56 U/L (38-126); Anion Gap 15.1 mEq/L (5-15); Aspartate Amino Transferase 38 U/L (14-36); Bilirubin,Total 0.6 mg/dl (0.2-1.3); Blood Urea Nitrogen 8 mg/dl (7-17); Carbon Dioxide 25 mmol/L (22.0-30.0); Creatinine Clearance Estimated 39 mL/min (50-200); Estimated Glomerular Filt Rate 121 ml/min (>60); GFR (African American) 146 ML/MIN (>60); Globulin 2.6 g/dL (1.3-3.2); Total Protein,Serum 6.9 g/dl (6.3-8.2)
[2022-05-10 01:42] LABS: Calcium 9.1 mg/dl (8.4-10.2); Glucose 105 mg/dl (74-100)
[2022-05-10 01:58] LABS: Troponin I < 0.01 ng/ml (0.00-0.034)
--- NOTE | 2022-05-10 02:02 | HMH.EDDIZZ ---
Discharge Plan Disposition Patient Disposition: Home, Self-Care Chief Complaint: Dizziness Prescriptions Prescriptions: No Action alprazolam 1 mg tablet 0.5 mg PO QDAY aspirin [Adult Low Dose Aspirin] 81 mg tablet,delayed release (DR/EC) 81 mg PO QDAY losartan 50 mg tablet 100 mg PO DAILY atorvastatin 10 mg tablet 10 mg PO QDAY Qty: 30 0RF carvedilol 12.5 mg tablet 12.5 mg PO BID Qty: 60 0RF Rx Instructions: Needs follow up appt. meclizine 12.5 MG tablet 12.5 mg PO TID PRN (Reason: Vertigo) Qty: 15 0RF omeprazole 20 MG capsule,delayed release(DR/EC) 20 mg PO DAILY Qty: 7 0RF omeprazole 20 MG capsule,delayed release(DR/EC) 20 mg PO DAILY Qty: 30 0RF sucralfate 1 GM/10 ML suspension 10 ml PO ACHS Qty: 100 0RF famotidine-Ca carb-mag hydrox 1 EACH tablet,chewable 1 each PO BID 15 Days Qty: 30 0RF Referrals Follow up/Referrals: Liudmila Marvin APRN [Primary Care Provider] - See instructions Clinical Impressions Clinical Impression: Dizziness Instructions Patient Instructions: Dizziness, Nonvertigo Discharge ED Provider: Torey Jeronimo [facility] General Chief Complaint: Dizziness Stated Complaint: blood pressure issues Time Seen by Provider: 05/10/22 01:00 Mode of Arrival: Ambulatory Source of Information: Patient, Relative and Medical Record Limitations: No Limitations Description of Symptoms (Recalled from ER Triage Doc. by RN): Pt states that she has been having fluctuating blood pressure with weakness and dizziness for the last few weeks. States that she has seen her pcp several times for this , with the latest being a couple of days ago. Pt states that her pcp did not find anything wrong but also did not order any tests or labs. Patient states that she also became diaphoresis about an hour ago. History of Present Illness HPI Narrative: pt with episodes of weakness and dizziness with bp elevation over the last week w/o chest pain or focal neuro sx - has seen pcp - feels sweaty at times MD complaint: dizziness and lightheadedness Onset (ago): day(s) Timing: intermittent Description: lightheadedness History of similar episodes: Yes History of trauma: No Severity: moderate Associated symptoms: denies other symptoms Related Data Home Medications Medication Instructions Recorded Confirmed alprazolam 1 mg tablet 0.5 mg PO QDAY anxiety 08/12/17 11/24/18 aspirin 81 mg tablet,delayed 81 mg PO QDAY antiplatelet 08/12/17 11/24/18 release (Adult Low Dose Aspirin) losartan 50 mg tablet 100 mg PO DAILY hypertension 11/24/18 11/24/18 Previous Rx's Medication Instructions Recorded atorvastatin 10 mg tablet 10 mg PO QDAY hyperlipidemia #30 05/27/19 tabs carvedilol 12.5 mg tablet 12.5 mg PO BID coronary artery 06/14/19 disease #60 tabs meclizine 12.5 mg tablet 12.5 mg PO TID PRN Vertigo #15 tabs 06/22/19 omeprazole 20 mg capsule,delayed 20 mg PO DAILY #7 caps 06/22/19 release omeprazole 20 mg capsule,delayed 20 mg PO DAILY #30 caps 01/07/21 release sucralfate 100 mg/mL oral 10 ml PO ACHS #100 mL 01/07/21 suspension famotidine-Ca carb-mag hydrox 10 1 each PO BID 15 days #30 tabs 05/09/21 mg-800 mg-165 mg chewable tablet Allergies Allergy/AdvReac Type Severity Reaction Status Date / Time Sulfa (Sulfonamide Allergy Severe S-SWELLS-OR Verified 11/24/18 13:28 Antibiotics) AL/THROAT [SULFA (SULFONAMIDE ANTIBIOTICS)] hydrochlorothiazide Allergy Verified 07/28/20 12:32 PFSH PFSH Social History Smoking Status: Never smoker alcohol intake: never substance use type: denies use current occupational status: other Travel in the last 8 weeks: None ROS Obtained: Yes All systems reviewed & no additional complaints except as documented Constitutional Constitutional: Denies fever(s) and Denies headache(s) Eyes Eyes: Denies loss of vision ENT Ears, Nose, Mouth, and Throat: Denies headache(s) Cardi
[2022-05-10 03:50] VITALS: BP 165/90; PULSE 78; RESP 18; TEMP 36.6; O2SAT 99
== END 2022-05-10 03:55 | disposition home or self-care (01) ==
PROVIDERS: Emergency Provider Emergency Medicine; PCP Nurse Practitioner Family
DX: R42 Dizziness and giddiness (principal); R53.1 Weakness; R61 Generalized hyperhidrosis; R03.0 Elevated blood-pressure reading, without diagnosis of hypertension; Z79.51 Long term (current) use of inhaled steroids; Z79.899 Other long term (current) drug therapy; Z88.2 Allergy status to sulfonamides; Z88.8 Allergy status to other drugs, medicaments and biological substances
CPT/HCPCS: 70450; 71046; 80053; 84484; 85025; 93005; 93225; 93226; 99285

== ENCOUNTER → 2022-05-14 14:07 | Outpatient (POV) | payer SELFPAY | PROVIDERS: Visit Provider Dermatology | DX: Z00.00 Encounter for general adult medical examination without abnormal findings (principal) ==

== ENCOUNTER 2023-01-14 19:26 | Emergency (ER) | payer MEDICARE, SELFPAY ==
[2023-01-14 19:45] VITALS: BP 146/75; PULSE 68; RESP 19; TEMP 36.6; O2SAT 98; BMI 17.9
--- NOTE | 2023-01-14 20:22 | EXP.UTC ---
Discharge Plan Disposition Patient Disposition: Still a Patient Condition: Good Prescriptions Prescriptions: No Action alprazolam 1 mg tablet 0.5 mg PO QDAY aspirin [Adult Low Dose Aspirin] 81 mg tablet,delayed release (DR/EC) 81 mg PO QDAY losartan 50 mg tablet 100 mg PO DAILY atorvastatin 10 mg tablet 10 mg PO QDAY Qty: 30 0RF carvedilol 12.5 mg tablet 12.5 mg PO BID Qty: 60 0RF Rx Instructions: Needs follow up appt. amoxicillin 500 mg capsule 500 mg PO TID Label Comments: TAKE ONE CAPSULE BY MOUTH THREE TIMES DAILY FOR 10 DAYS -- FINISH ALL MEDICINE -- alprazolam 1 mg tablet 0.5 mg PO HS Label Comments: TAKE 1/2 OR 1 TABLET BY MOUTH EVERY NIGHT AT BEDTIME NEEDED FOR INSOMNIA amlodipine 5 mg tablet 5 mg PO DAILY Label Comments: TAKE ONE TABLET BY MOUTH ONCE DAILY aspirin 81 mg Tablet 81 mg PO DAILY Referrals Follow up/Referrals: Liudmila Marvin APRN [Primary Care Provider] - See instructions Discharge ED Provider: Phani (ED)Torey [facility] [place] HPI General Chief complaint: Weakness Stated complaint: mouth pain, nausea Mode of Arrival: Ambulatory Source of Information: Patient Limitations: No Limitations Time Seen by Provider: 01/14/23 20:22 Description of Symptoms (Recalled from Triage Doc. by RN): PATIENT C/O MOUTH BURNING, SWEET TASTE IN MOUTH, SPOTS ON BODY, BURNING IN LEGS/FEET, NAUSEA AND LIGHT-HEADED. SHE STATES SYMPTOMS HAVE BEEN GOING ON FOR WEEKS HEENT Symptoms (Recalled from RN notes): No Resp Symptoms (Recalled from RN notes): No Skin Symptoms (Recalled from RN notes): No MS Symptoms (Recalled from RN notes): No Functional Status (Recalled from RN notes): WNL History of Present Illness Provider Complaint: Patient states that she has been having dental work done and currently on amoxicillin states that she has been having burning in her mouth, confusion that has got worse Dizziness, spots on her body and feeling off in her head States that she doesnt feel right Related Data Home Medications Medication Instructions Recorded Confirmed alprazolam 1 mg tablet 0.5 mg PO QDAY anxiety 08/12/17 01/14/23 aspirin 81 mg tablet,delayed 81 mg PO QDAY antiplatelet 08/12/17 01/14/23 release (Adult Low Dose Aspirin) losartan 50 mg tablet 100 mg PO DAILY hypertension 11/24/18 01/14/23 alprazolam 1 mg tablet 0.5 mg PO HS sleep 01/14/23 01/14/23 amlodipine 5 mg tablet 5 mg PO DAILY High blood pressure 01/14/23 01/14/23 amoxicillin 500 mg capsule 500 mg PO TID Infection 01/14/23 01/14/23 aspirin 81 mg tablet 81 mg PO DAILY heart health 01/14/23 01/14/23 Previous Rx's Medication Instructions Recorded atorvastatin 10 mg tablet 10 mg PO QDAY hyperlipidemia #30 05/27/19 tabs carvedilol 12.5 mg tablet 12.5 mg PO BID coronary artery 06/14/19 disease #60 tabs Allergies Allergy/AdvReac Type Severity Reaction Status Date / Time Sulfa (Sulfonamide Allergy Severe S-SWELLS-OR Verified 05/29/22 12:53 Antibiotics) AL/THROAT [SULFA (SULFONAMIDE ANTIBIOTICS)] hydrochlorothiazide Allergy Verified 05/29/22 12:53 Worker's Comp Is this a Worker's Comp case?: No [facility] Disclaimer: The information contained in this section may have been updated after the patient was seen, as this information can be updated by other users. Social History (System 05/29/22 @ 12:53 by Trace Ureña) Smoking Status: Never smoker alcohol intake: never substance use type: denies use current occupational status: other Travel in the last 8 weeks: None ROS Obtained: Yes All systems reviewed & no additional complaints except as documented and Yes Systems reviewed as appropriate & no additional complaints except as documented Constitutional Constitutional: Reports system reviewed and no additional complaints, except as documented, Reports as per HPI, Reports fatigue and Reports lethargy ENT Ears, Nose, Mouth, and T
--- NOTE | 2023-01-14 20:25 | PC.NURSE ---
PATIENT SENT TO ER PER Alphonso BUSTAMANTE APRN FOR FURTHER EVALUATION. REPORT GIVEN TO Patricia WARNER RN BY Alphonso BUSTAMANTE APRN
[2023-01-14 20:36] VITALS: BP 175/80; PULSE 71; RESP 20; TEMP 36.5; O2SAT 98; BMI 20.1
--- NOTE | 2023-01-14 20:40 | CT_ITS ---
PROCEDURE INFORMATION: Exam: CT Head Without Contrast Exam date and time: 01/14/2023 9:01 PM Age: 77 years old Clinical indication: Dizziness; Additional info: Weakness TECHNIQUE: Imaging protocol: Computed tomography of the head without contrast. Radiation optimization: All CT scans at this facility use at least one of these dose optimization techniques: automated exposure control; mA and/or kV adjustment per patient size (includes targeted exams where dose is matched to clinical indication); or iterative reconstruction. REPORTING DATA: Count of CT and Cardiac NM exams in prior 12 months: This patient has received [address] and 0 known cardiac nuclear medicine studies in the 12 months prior to the current study. COMPARISON: CT HEAD/BRAIN WO CON 05/10/2022 1:42 AM FINDINGS: Brain: There is mild diffuse cerebral volume loss present. Multiple subcortical and deep hypoattenuating white matter foci are present, likely related to small vessel senescent changes and can also be seen with prior infectious / inflammatory insult, or prior traumatic events. No hyperattenuating foci are identified to suggest acute intracranial hemorrhage. Cerebral ventricles: No ventriculomegaly. Paranasal sinuses: Visualized sinuses are unremarkable. No fluid levels. Mastoid air cells: Visualized mastoid air cells are well aerated. Bones/joints: Unremarkable. No acute fracture. Soft tissues: Unremarkable. IMPRESSION: 1. Multiple subcortical and deep hypoattenuating white matter foci are present, likely related to small vessel senescent changes and can also be seen with prior infectious / inflammatory insult, or prior traumatic events. 2. No hyperattenuating foci are identified to suggest acute intracranial hemorrhage.
--- NOTE | 2023-01-14 20:40 | XR_ITS ---
PROCEDURE INFORMATION: Exam: XR Chest Exam date and time: 01/14/2023 8:47 PM Age: 77 years old Clinical indication: Other: Weakness TECHNIQUE: Imaging protocol: Radiologic exam of the chest. Views: 2 views. COMPARISON: CR XR CHEST 2V 05/10/2022 1:36 AM FINDINGS: Lungs: There are moderate centrilobular emphysematous changes of the lungs with an apical gradient. No consolidations or pleural effusions. Pleural spaces: See Lungs finding. Heart/Mediastinum: Unremarkable. No cardiomegaly. Bones/joints: Unremarkable. IMPRESSION: No acute findings.
--- NOTE | 2023-01-14 20:41 | ECG_ITS ---
APPROVED REPORT Exam: Resting ECG HR:73 bpm ECG Measurements Heart Rate 73 AXES PA 144 P 83 QRSd 84 QRS 72 QT 387 T 75 QTc 412 Conclusion SINUS RHYTHM POSSIBLE LEFT ATRIAL ENLARGEMENT [-0.1mV P-WAVE IN V1/V2] BORDERLINE ECG UNCONFIRMED REPORT Electronically signed by : Hosea Johnson MD 01/16/2023 09:28:23
--- NOTE | 2023-01-14 20:45 | PC.NURSE ---
in room talking with patient at this time.
[2023-01-14 20:47] LABS: Microscopic, Urine URINE MICROSCOPIC (MICROSCOPIC)
[2023-01-14 20:49] LABS: Basophils % 0.5 % (0.1-2.0); Eosinophils # 0.1 K/mm3 (0.0-0.4); Eosinophils % 1.7 % (0.1-12.0); Hematocrit 38.4 % (37.0-47.0); Hemoglobin 12.9 g/dL (12.2-16.2); Lymphocytes # 2.1 K/mm3 (0.7-4.5); Lymphocytes % 26.1 % (10-50); Mean Corpuscular HGB Conc 33.6 g/dL (31.8-35.4); Mean Corpuscular Volume 95.4 fl (81-99); Mean Platelet Volume 7.1 fl (7.4-10.4); Monocytes # 0.7 K/mm3 (0.1-1.0); Monocytes % 8.7 % (1.7-9.3); Neutrophils # 5.2 K/mm3 (1.8-7.8); Neutrophils % 62.9 % (37.0-80.0); Platelet Count 281 K/mm3 (142-424); Red Blood Count 4.03 M/mm3 (4.20-5.40); Red Cell Distribution Width 12.4 % (11.5-17.5); White Blood Count 8.2 K/mm3 (4.8-10.8)
[2023-01-14 20:54] LABS: Chloride 95 mmol/L (98-107); Sodium 131 mmol/L (136-145)
--- NOTE | 2023-01-14 20:54 | PC.NURSE ---
Pt gone to RAD via stretcher
[2023-01-14 20:55] LABS: Appearance,Urine CLEAR (Clear); Bilirubin,Urine Negative (Negative); Blood, Urine TRACE-I (Negative); Color,Urine YELLOW (Yellow); Glucose,Urine (UA) Negative (Negative); Ketones,Urine Negative (Negative); Leukocyte Esterase,Urine Negative (Negative); Nitrate,Urine Negative (Negative); PH,Urine 6.5 (5.0-8.5); Potassium 3.6 mmoL/L (3.5-5.1); Protein,Urine Negative (Negative); Specific Gravity, Urine <= 1.005 (1.005-1.030); Urobilinogen,Urine 0.2 EU/dl (0.2)
[2023-01-14 20:57] LABS: Alanine Aminotransferase 26 U/L (12-78); Albumin Level 4.6 g/dl (3.5-5.0); Albumin/Globulin Ratio 1.7 (1.1-1.8); Alkaline Phosphatase 57 U/L (38-126); Anion Gap 11.6 mEq/L (5-15); Aspartate Amino Transferase 44 U/L (14-36); Bilirubin,Total 0.5 mg/dl (0.2-1.3); Blood Urea Nitrogen 6 mg/dl (7-17); Carbon Dioxide 28 mmol/L (22.0-30.0); Creatinine Clearance Estimated 38 mL/min (50-200); Estimated Glomerular Filt Rate 97 ml/min (>60); GFR (African American) 118 ML/MIN (>60); Globulin 2.7 g/dL (1.3-3.2); Total Protein,Serum 7.3 g/dl (6.3-8.2)
[2023-01-14 20:58] LABS: Calcium 9.6 mg/dl (8.4-10.2); Glucose 107 mg/dl (74-100); Lactic Acid 0.6 mmol/L (0.7-2.1)
[2023-01-14 21:03] LABS: C-Reactive Protein < 0.3 mg/L (0-4)
--- NOTE | 2023-01-14 21:04 | PC.NURSE ---
patient back in room from [facility] this time.
[2023-01-14 21:14] LABS: Troponin I < 0.01 ng/ml (0.00-0.034)
[2023-01-14 21:18] LABS: Squamous Epithelial Cell,Urine Occasional #/hpf (0-5)
[2023-01-14 21:25] LABS: Erythrocyte Sedimentation Rate 13 mm/hr (0-30)
[2023-01-14 21:31] VITALS: BP 159/77; PULSE 72; RESP 21; O2SAT 98
--- NOTE | 2023-01-14 21:38 | HMH.EDWEAK ---
Discharge Plan Disposition Patient Disposition: Home, Self-Care Condition: Good Prescriptions Prescriptions: No Action alprazolam 1 mg tablet 0.5 mg PO QDAY aspirin [Adult Low Dose Aspirin] 81 mg tablet,delayed release (DR/EC) 81 mg PO QDAY losartan 50 mg tablet 100 mg PO DAILY atorvastatin 10 mg tablet 10 mg PO QDAY Qty: 30 0RF carvedilol 12.5 mg tablet 12.5 mg PO BID Qty: 60 0RF Rx Instructions: Needs follow up appt. amoxicillin 500 mg capsule 500 mg PO TID Label Comments: TAKE ONE CAPSULE BY MOUTH THREE TIMES DAILY FOR 10 DAYS -- FINISH ALL MEDICINE -- alprazolam 1 mg tablet 0.5 mg PO HS Label Comments: TAKE 1/2 OR 1 TABLET BY MOUTH EVERY NIGHT AT BEDTIME NEEDED FOR INSOMNIA amlodipine 5 mg tablet 5 mg PO DAILY Label Comments: TAKE ONE TABLET BY MOUTH ONCE DAILY aspirin 81 mg Tablet 81 mg PO DAILY Referrals Follow up/Referrals: Liudmila Marvin APRN [Primary Care Provider] - See instructions Clinical Impressions Clinical Impression: Weakness Instructions Patient Instructions: DI for Muscle Weakness Discharge ED Provider: Phani (ED)Torey Weakness HPI General Chief complaint: Weakness Stated complaint: mouth pain, nausea Time Seen by Provider: 01/14/23 20:22 Mode of Arrival: Ambulatory Source of Information: Patient, Relative and Medical Record Limitations: No Limitations Description of Symptoms (Recalled from ER Triage Doc. by RN): pt c/o dizziness, weakness x several weeks. History of Present Illness HPI Narrative: generalized weakness and occ dizzyness w/o fever/rash or trauma - no sig memory issues - no chest pain MD Complaint: generalized weakness Onset (ago): day(s) Duration: intermittent Location: generalized Migration: none Severity: moderate Associated symptoms: denies other symptoms Related Data Home Medications Medication Instructions Recorded Confirmed alprazolam 1 mg tablet 0.5 mg PO QDAY anxiety 08/12/17 01/14/23 aspirin 81 mg tablet,delayed 81 mg PO QDAY antiplatelet 08/12/17 01/14/23 release (Adult Low Dose Aspirin) losartan 50 mg tablet 100 mg PO DAILY hypertension /01/14/23 alprazolam 1 mg tablet 0.5 mg PO HS sleep 01/14/23 01/14/23 amlodipine 5 mg tablet 5 mg PO DAILY High blood pressure 01/14/23 01/14/23 amoxicillin 500 mg capsule 500 mg PO TID Infection 01/14/23 01/14/23 aspirin 81 mg tablet 81 mg PO DAILY heart health 01/14/23 01/14/23 Previous Rx's Medication Instructions Recorded atorvastatin 10 mg tablet 10 mg PO QDAY hyperlipidemia #30 05/27/19 tabs carvedilol 12.5 mg tablet 12.5 mg PO BID coronary artery 06/14/19 disease #60 tabs Allergies Allergy/AdvReac Type Severity Reaction Status Date / Time Sulfa (Sulfonamide Allergy Severe S-SWELLS-OR Verified 05/29/22 12:53 Antibiotics) AL/THROAT [SULFA (SULFONAMIDE ANTIBIOTICS)] hydrochlorothiazide Allergy Verified 05/29/22 12:53 PFSH [facility] Disclaimer: The information contained in this section may have been updated after the patient was seen, as this information can be updated by other users. Social History (System 05/29/22 @ 12:53 by Trace Ureña) Smoking Status: Never smoker alcohol intake: never substance use type: denies use current occupational status: other Travel in the last 8 weeks: None ROS Obtained: Yes All systems reviewed & no additional complaints except as documented Physical Exam General General appearance: alert and in no apparent distress Head Head exam: normocephalic Eye Eye exam: Present PERRL and EOMI; Absent scleral icterus or nystagmus ENT ENT exam: Present normal oropharynx and mucous membranes moist Neck Neck exam: Present trachea midline Respiratory Respiratory exam: Present normal lung sounds bilaterally; Absent respiratory distress Cardiovascular Cardiovascular exam: Present regular rate and systolic murmur Abdominal Exam Abd
[2023-01-14 21:39] LABS: Procalcitonin < 0.030 ng/mL (0.0-2.0)
[2023-01-14 22:01] VITALS: BP 157/80; PULSE 78; O2SAT 98
[2023-01-14 22:16] LABS: Thyroid Stimulating Hormone 3.15 uIU/mL (0.465-4.68)
[2023-01-14 22:49] VITALS: BP 151/71; PULSE 73; RESP 18; TEMP 36.6; O2SAT 98
== END 2023-01-14 22:50 | disposition home or self-care (01) ==
LOC: UTC 19:52 → ER 20:31
PROVIDERS: Emergency Provider Emergency Medicine; PCP Nurse Practitioner Family
DX: R53.1 Weakness (principal); R42 Dizziness and giddiness; R11.0 Nausea
CPT/HCPCS: 70450; 71046; 80053; 81001; 83605; 84145; 84443; 84484; 85025; 85651; 86140; 87040; 93005; 96360; 99285

== ENCOUNTER → 2023-05-15 09:28 | Outpatient (CLI) | payer MEDICARE, SELFPAY ==
--- NOTE | 2023-05-15 09:31 | MM_ITS ---
PROCEDURE INFORMATION: Exam: MG Bilateral Screening 3D Mammography Exam date and time: 05/15/2023 9:30 AM Age: 77 years old Clinical indication: Screening mammogram. Personal history of left breast cancer with Lumpectomy and radiation therapy; Family history of breast cancer in aunt and other: Materanal cousins TECHNIQUE: Imaging protocol: Bilateral Screening tomosynthesis and 2D mammography including computer-aided detection (CAD) when performed. COMPARISON: 1. MG MM DIG SCREENING MAMM BI W/CAD 04/17/2021 9:34 AM 2. MG MM DIG SCREENING MAMM BI W/CAD 08/09/2019 10:07 AM 3. MG SCBI MM Dig screening mamm BI w/CAD 07/31/2018 3:40 PM 4. MG DMSB DIG MAMM-SCREEN RUT W/CAD 07/28/2017 11:00 AM FINDINGS: MAMMOGRAPHY: Breast composition: The breast is heterogeneously dense, which may obscure small masses. Mass: Stable benign-appearing subcentimeter nodules are present in the right breast. No new or morphologically suspicious nodule has developed to suggest malignancy. Architectural distortion: No new or suspicious architectural distortion. Calcifications: No new or suspicious calcifications are present Asymmetric density: No new or suspicious asymmetric density is present Skin thickening: None. Axillary adenopathy: None. Other findings: Stable postoperative findings on the left the IMPRESSION: No mammographic evidence of malignancy. Recommend annual screening mammography unless otherwise clinically indicated. ASSESSMENT: BI-RADS category 2: Benign
--- NOTE | 2023-05-15 09:32 | XR_ITS ---
FINAL REPORT CLINICAL HISTORY: POST MENOPAUSAL COMPARISON: 04/17/2021 FINDINGS: Using L1-4, the bone mineral density of the spine is 0.743 g/cm2, corresponding to T-score of -2.8, consistent with osteoporosis. Previously 0.761 g/cm2 with T-score of-2.6. Using the left hip, the bone mineral density of the femoral neck is 0.563 g/cm2, corresponding to a T-score of -3.1, consistent with osteoporosis. Previously 0.512 g/cm2 with T-score of -3.0. Using the right hip, the bone mineral density of the femoral neck is 0.519 g/cm2, corresponding to a T-score of -3.0, consistent with osteoporosis. Previously 0.460 g/cm2 with T-score of -3.5. NOTE: T-score: Standard deviation compared with peak bone mass of young adult mean. *Following the recommendations of the International Society of Bone densitometry, classification of hip BMD is based on the lower of two T-scores; total hip or femoral neck. IMPRESSION: Diminished bone mineral density consistent with osteoporosis. Reviewed, Interpreted and Dictated by Siddharth Flor III, MD Transcribed by Shivani Flaherty Authenticated and [facility]
== END ==
PROVIDERS: PCP Nurse Practitioner Family; Visit Provider Nurse Practitioner Family
DX: Z12.31 Encounter for screening mammogram for malignant neoplasm of breast (principal); Z78.0 Asymptomatic menopausal state
CPT/HCPCS: 77063; 77067; 77080

== ENCOUNTER 2023-06-30 09:50 | Emergency (ER) | payer MEDICARE, SELFPAY ==
[2023-06-30 09:51] VITALS: BP 157/77; PULSE 72; RESP 16; TEMP 36.9; O2SAT 100; BMI 16.9
--- NOTE | 2023-06-30 09:57 | ECG_ITS ---
APPROVED REPORT Exam: Resting ECG HR:69 bpm ECG Measurements Heart Rate 69 AXES IA 142 P 79 QRSd 88 QRS 46 QT 379 T 68 QTc 397 Conclusion SINUS RHYTHM POSSIBLE LEFT ATRIAL ENLARGEMENT [-0.1mV P-WAVE IN V1/V2] BORDERLINE ECG UNCONFIRMED REPORT Electronically signed by : Hosea Johnson MD 07/02/2023 17:15:59
--- NOTE | 2023-06-30 10:23 | XR_ITS ---
FINAL REPORT TECHNIQUE: Single view chest CLINICAL HISTORY: general weakness COMPARISON: 01/15/2023 FINDINGS: A single view of the chest was obtained. There are postoperative changes noted of the left chest wall. The heart and mediastinum are within normal limits. The lungs are hyperinflated consistent with COPD but otherwise clear. There is no pneumothorax. Osseous structures are unremarkable. IMPRESSION: No acute cardiopulmonary process. Reviewed, Interpreted and Dictated by Siddharth Flor III, MD Transcribed by Marianela Juarez Authenticated and [facility]
[2023-06-30 10:30] VITALS: BP 145/79; PULSE 77; O2SAT 98
[2023-06-30 10:30] LABS: Basophils # 0.1 K/mm3 (0-0.2); Basophils % 0.6 % (0.1-2.0); Eosinophils # 0.1 K/mm3 (0.0-0.4); Eosinophils % 1.2 % (0.1-12.0); Hematocrit 42.2 % (37.0-47.0); Hemoglobin 14.3 g/dL (12.2-16.2); Lymphocytes # 1.1 K/mm3 (0.7-4.5); Mean Corpuscular HGB Conc 33.9 g/dL (31.8-35.4); Mean Corpuscular Volume 97.5 fl (81-99); Mean Platelet Volume 7.4 fl (7.4-10.4); Monocytes # 0.6 K/mm3 (0.1-1.0); Monocytes % 6.7 % (1.7-9.3); Neutrophils # 7.7 K/mm3 (1.8-7.8); Neutrophils % 80.5 % (37.0-80.0); Platelet Count 269 K/mm3 (142-424); Red Blood Count 4.33 M/mm3 (4.20-5.40); Red Cell Distribution Width 12.7 % (11.5-17.5); White Blood Count 9.6 K/mm3 (4.8-10.8)
[2023-06-30 10:43] LABS: Alanine Aminotransferase 23 U/L (12-78); Albumin Level 4.4 g/dl (3.5-5.0); Albumin/Globulin Ratio 1.6 (1.1-1.8); Alkaline Phosphatase 58 U/L (38-126); Anion Gap 10.4 mEq/L (5-15); Aspartate Amino Transferase 38 U/L (14-36); Bilirubin,Total 0.6 mg/dl (0.2-1.3); Blood Urea Nitrogen 5 mg/dl (7-17); Calcium 9.7 mg/dl (8.4-10.2); Carbon Dioxide 27 mmol/L (22.0-30.0); Chloride 98 mmol/L (98-107); Creatine Kinase 49 U/L (30-135); Creatinine Clearance Estimated 32 mL/min (50-200); Estimated Glomerular Filt Rate 97 ml/min (>60); GFR (African American) 118 ML/MIN (>60); Globulin 2.8 g/dL (1.3-3.2); Glucose 161 mg/dl (74-100); Magnesium 1.8 mg/dl (1.6-2.3); Phosphorous 3.9 mg/dl (2.5-4.5); Potassium 3.4 mmoL/L (3.5-5.1); Sodium 132 mmol/L (136-145); Total Protein,Serum 7.2 g/dl (6.3-8.2)
[2023-06-30 10:50] LABS: Microscopic, Urine URINE MICROSCOPIC (MICROSCOPIC)
[2023-06-30 10:52] LABS: NT Pro Brain Natriuretic Pep. 357 pg/mL (0-450)
--- NOTE | 2023-06-30 10:57 | HMH.EDGENADL ---
Discharge Plan Disposition Patient Disposition: Home, Self-Care Condition: Good Prescriptions Prescriptions: No Action alprazolam 1 mg tablet 0.5 mg PO QDAY aspirin [Adult Low Dose Aspirin] 81 mg tablet,delayed release (DR/EC) 81 mg PO QDAY losartan 50 mg tablet 100 mg PO DAILY atorvastatin 10 mg tablet 10 mg PO QDAY Qty: 30 0RF carvedilol 12.5 mg tablet 12.5 mg PO BID Qty: 60 0RF Rx Instructions: Needs follow up appt. amoxicillin 500 mg capsule 500 mg PO TID Patient Comments: TAKE ONE CAPSULE BY MOUTH THREE TIMES DAILY FOR 10 DAYS -- FINISH ALL MEDICINE -- alprazolam 1 mg tablet 0.5 mg PO HS Patient Comments: TAKE 1/2 OR 1 TABLET BY MOUTH EVERY NIGHT AT BEDTIME NEEDED FOR INSOMNIA amlodipine 5 mg tablet 5 mg PO DAILY Patient Comments: TAKE ONE TABLET BY MOUTH ONCE DAILY aspirin 81 mg Tablet 81 mg PO DAILY Referrals Follow up/Referrals: Liudmila Marvin APRN [Primary Care Provider] - See instructions Activity Restrictions/Add. Instructions Additional Instructions/Restrictions: You were evaluated in the emergency department today. Please follow-up with your primary care provider over the next week for reassessment. Return to the emergency department for new or worsening symptoms. Clinical Impressions Clinical Impression: General weakness, Hypokalemia Instructions Patient Instructions: DI for Hypokalemia, DI for Muscle Weakness Discharge ED Provider: Ivy Liu General Adult HPI General Chief complaint: Weakness Stated complaint: dizzy, heart racing low bp Time Seen by Provider: 06/30/23 10:04 Mode of Arrival: Wheelchair Source of Information: Patient Limitations: No Limitations Description of Symptoms (Recalled from ER Triage Doc. by RN): pt presents to ED with c/o weakness, dizziness, fatigue. pt reports she has been having symptoms for many months but has had no answers from PCP. pt states i just dont feel well . pt was seen by pcp approx 2 weeks ago and her carvedilol was halfed for the morning dose. History of Present Illness HPI narrative: This patient is a 77-year-old female with a history of CAD, hypertension, hyperlipidemia, hypertensive heart disease, and vertigo presenting to the emergency department for evaluation with concern that she has been feeling weak and tired over the last several months. She notes that she just has not felt well, but she states that she has not been able to get answers from her primary care provider. She states that she has seen multiple times and has been told to decrease her blood pressure medicine, but she decreased it approximately 2.5 weeks ago and she is still feeling bad. She states that it feels like her legs want to go to sleep, and she just feels off. She denies any other concerns, such as chest pain, shortness of breath, abdominal pain, nausea, vomiting, changes bowel movements, rashes, swelling, or other issues. Related Data Home Medications Medication Instructions Recorded Confirmed alprazolam 1 mg tablet 0.5 mg PO QDAY anxiety 08/12/17 06/30/23 aspirin 81 mg tablet,delayed 81 mg PO QDAY antiplatelet 08/12/17 06/30/23 release (Adult Low Dose Aspirin) losartan 50 mg tablet 100 mg PO DAILY hypertension 11/24/18 06/30/23 alprazolam 1 mg tablet 0.5 mg PO HS sleep 01/14/23 06/30/23 amlodipine 5 mg tablet 5 mg PO DAILY High blood pressure 01/14/23 06/30/23 amoxicillin 500 mg capsule 500 mg PO TID Infection 01/14/23 06/30/23 aspirin 81 mg tablet 81 mg PO DAILY heart health 01/14/23 06/30/23 Previous Rx's Medication Instructions Recorded atorvastatin 10 mg tablet 10 mg PO QDAY hyperlipidemia #30 05/27/19 tabs carvedilol 12.5 mg tablet 12.5 mg PO BID coronary artery 06/14/19 disease #60 tabs Allergies Allergy/AdvReac Type Severity Reaction Status Date / Time Sulfa (Sulfonamide Allergy Severe S-SWELLS-OR Verified 06/30/23 10:04 Antibiotics) AL/THROAT [
[2023-06-30 10:59] LABS: T4 (Thyroxine) 10.4 ug/dl (5.53-11.0)
[2023-06-30 11:00] VITALS: BP 143/65; PULSE 68; O2SAT 98
[2023-06-30 11:04] LABS: Appearance,Urine CLEAR (Clear); Bilirubin,Urine Negative (Negative); Blood, Urine TRACE-I (Negative); Color,Urine YELLOW (Yellow); Glucose,Urine (UA) Negative (Negative); Ketones,Urine Negative (Negative); Leukocyte Esterase,Urine Negative (Negative); Nitrate,Urine Negative (Negative); PH,Urine 7.5 (5.0-8.5); Protein,Urine Negative (Negative); Urobilinogen,Urine 0.2 EU/dl (0.2)
[2023-06-30 11:13] LABS: Thyroid Stimulating Hormone 1.67 uIU/mL (0.465-4.68)
[2023-06-30 11:30] VITALS: BP 152/77; PULSE 66; O2SAT 99
[2023-06-30 12:15] VITALS: BP 140/72; PULSE 72; RESP 16; TEMP 36.7
[2023-06-30 12:28] LABS: Bacteria,Urine Trace /lpf; Squamous Epithelial Cell,Urine Occasional #/hpf (0-5); WBC,Urine Occasional #/hpf (0-3)
== END 2023-06-30 12:15 | disposition home or self-care (01) ==
PROVIDERS: Emergency Provider Emergency Medicine; PCP Nurse Practitioner Family
DX: E87.6 Hypokalemia (principal); R42 Dizziness and giddiness; M62.81 Muscle weakness (generalized); R53.83 Other fatigue; R00.2 Palpitations; I25.10 Atherosclerotic heart disease of native coronary artery without angina pectoris; I11.9 Hypertensive heart disease without heart failure; E78.5 Hyperlipidemia, unspecified; K21.9 Gastro-esophageal reflux disease without esophagitis
CPT/HCPCS: 71045; 80053; 81001; 82550; 83735; 83880; 84100; 84436; 84443; 85025; 93005; 99284

== ENCOUNTER 2023-07-02 17:58 | Emergency (ER) | payer MEDICARE, SELFPAY ==
[2023-07-02] VITALS (9 sets, daily range): BP systolic 137–177; BP diastolic 77–98; PULSE 66–85; RESP 12–24; TEMP 36.7; O2SAT 97–99; BMI 17.5
--- NOTE | 2023-07-02 18:19 | CT_ITS ---
PROCEDURE INFORMATION: Exam: CT Head Without Contrast Exam date and time: 07/02/2023 7:16 PM Age: 77 years old Clinical indication: Other: Vertigo TECHNIQUE: Imaging protocol: Computed tomography of the head without contrast. Radiation optimization: All CT scans at this facility use at least one of these dose optimization techniques: automated exposure control; mA and/or kV adjustment per patient size (includes targeted exams where dose is matched to clinical indication); or iterative reconstruction. REPORTING DATA: Count of CT and Cardiac NM exams in prior 12 months: This patient has received [address] and 0 known cardiac nuclear medicine studies in the 12 months prior to the current study. COMPARISON: CT HEAD/BRAIN WO CON 01/14/2023 9:01 PM FINDINGS: Brain: No acute intracranial hemorrhage, midline shift or mass effect. Diffuse brain parenchymal volume loss. Similar hypodensities within the cerebral white matter most consistent with chronic small-vessel ischemic changes. Cerebral ventricles: Ex vacuo dilatation of the ventricles. Paranasal sinuses: Mild right maxillary sinus lobulated mucosal thickening. No fluid levels. Mastoid air cells: Visualized mastoid air cells are well aerated. Bones/joints: Unremarkable. No acute fracture. Soft tissues: Unremarkable. IMPRESSION: 1. No acute intracranial findings. 2. Age-related involutional and chronic small-vessel ischemic changes.
--- NOTE | 2023-07-02 18:19 | XR_ITS ---
PROCEDURE INFORMATION: Exam: XR Chest Exam date and time: 07/02/2023 6:40 PM Age: 77 years old Clinical indication: Dyspnea TECHNIQUE: Imaging protocol: Radiologic exam of the chest. Views: 1 view. COMPARISON: CR XR CHEST PORTABLE 06/30/2023 10:23 AM FINDINGS: Tubes, catheters and devices: Surgical clips projecting over the left chest. Lungs: Hyperexpanded lungs compatible with emphysematous changes. No consolidation. Pleural spaces: Unremarkable. No pleural effusion. No pneumothorax. Heart/Mediastinum: Unremarkable. No cardiomegaly. Bones/joints: Unremarkable. IMPRESSION: No acute pulmonary findings.
--- NOTE | 2023-07-02 18:19 | CT_ITS ---
PROCEDURE INFORMATION: Exam: CTA Neck With Contrast Exam date and time: 07/02/2023 7:19 PM Age: 77 years old Clinical indication: Vertigo TECHNIQUE: Imaging protocol: Computed tomographic angiography of the neck with contrast. Exam focused on the cervical segments of the vasculature. 3D rendering (Not supervised by radiologist): MIP and/or 3D reconstructed images were created by the technologist. Radiation optimization: All CT scans at this facility use at least one of these dose optimization techniques: automated exposure control; mA and/or kV adjustment per patient size (includes targeted exams where dose is matched to clinical indication); or iterative reconstruction. Contrast material: ISOVUE 370; Contrast volume: 100 ml; Contrast route: INTRAVENOUS (IV); REPORTING DATA: Count of CT and Cardiac NM exams in prior 12 months: This patient has received [address] and 0 known cardiac nuclear medicine studies in the 12 months prior to the current study. COMPARISON: CT ANGIO NECK 07/28/2020 1:33 PM FINDINGS: Right common carotid artery: No stenosis. No dissection or occlusion. Right internal carotid artery: No stenosis of the extracranial segment. No dissection or occlusion. Right external carotid artery: No occlusion or stenosis of the origin. Left common carotid artery: Minimal athero scleroses of the carotid bulb without flow-limiting stenosis. No dissection or occlusion. Left internal carotid artery: No stenosis of the extracranial segment. No dissection or occlusion. Left external carotid artery: No occlusion or stenosis of the origin. Right vertebral artery: Mild atherosclerotic narrowing at the origin. No dissection or occlusion. Left vertebral artery: Dominant vessel. Severe atherosclerotic narrowing at the origin. No dissection or occlusion. Soft tissues: Normal. No significant soft tissue swelling. Bones/joints: No acute fracture. Cervical spondylosis. Pleural spaces: Biapical pleural-parenchymal scarring. IMPRESSION: 1. 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 2. No significant stenosis of the bilateral internal carotid arteries. REFERENCES: NASCET CRITERIA. The degree of stenosis in the cervical segment of the internal carotid artery is based on NASCET criteria. Normal is no stenosis. Mild is less than 50% stenosis. Moderate is 50-69% stenosis. Severe is 70% to 99% stenosis. Total occlusion is no detectable patent lumen.
--- NOTE | 2023-07-02 18:19 | CT_ITS ---
PROCEDURE INFORMATION: Exam: CTA Head With Contrast, Arteriography Exam date and time: 07/02/2023 7:19 PM Age: 77 years old Clinical indication: Vertigo TECHNIQUE: Imaging protocol: Computed tomographic angiography of the head with contrast. Exam focused on the arteries. 3D rendering (Not supervised by radiologist): MIP and/or 3D reconstructed images were created by the technologist. Radiation optimization: All CT scans at this facility use at least one of these dose optimization techniques: automated exposure control; mA and/or kV adjustment per patient size (includes targeted exams where dose is matched to clinical indication); or iterative reconstruction. Contrast material: ISOVUE 370; Contrast volume: 100 ml; Contrast route: INTRAVENOUS (IV); REPORTING DATA: Count of CT and Cardiac NM exams in prior 12 months: This patient has received [address] and 0 known cardiac nuclear medicine studies in the 12 months prior to the current study. COMPARISON: CT HEAD/BRAIN WO CON 07/02/2023 7:16 PM FINDINGS: ANTERIOR CIRCULATION: Right internal carotid artery: Mild atherosclerotic narrowing of the cavernous segment without flow-limiting stenosis. No aneurysm. Right middle cerebral artery: No occlusion or significant stenosis. No aneurysm. Right anterior cerebral artery: No occlusion or significant stenosis. No aneurysm. Left internal carotid artery: Minimal atherosclerotic narrowing of the cavernous segment without flow-limiting stenosis. No aneurysm. Left middle cerebral artery: No occlusion or significant stenosis. No aneurysm. Left anterior cerebral artery: No occlusion or significant stenosis. No aneurysm. POSTERIOR CIRCULATION: Right vertebral artery: No occlusion or significant stenosis. No aneurysm. Left vertebral artery: No occlusion or significant stenosis. No aneurysm. Basilar artery: No occlusion or significant stenosis. No aneurysm. Right posterior cerebral artery: No occlusion or significant stenosis. No aneurysm. Left posterior cerebral artery: No occlusion or significant stenosis. No aneurysm. Brain: No definite mass, mass effect, or midline shift. Cerebral ventricles: No ventriculomegaly. Bones/joints: Unremarkable. No acute fracture. Soft tissues: Unremarkable. IMPRESSION: No large vessel stenosis or occlusion.
--- NOTE | 2023-07-02 18:20 | HMH.EDGENADL ---
Discharge Plan Disposition Patient Disposition: Home, Self-Care Prescriptions Prescriptions: No Action alprazolam 1 mg tablet 0.5 mg PO QDAY aspirin [Adult Low Dose Aspirin] 81 mg tablet,delayed release (DR/EC) 81 mg PO QDAY losartan 50 mg tablet 100 mg PO DAILY atorvastatin 10 mg tablet 10 mg PO QDAY Qty: 30 0RF carvedilol 12.5 mg tablet 12.5 mg PO BID Qty: 60 0RF Rx Instructions: Needs follow up appt. amoxicillin 500 mg capsule 500 mg PO TID Patient Comments: TAKE ONE CAPSULE BY MOUTH THREE TIMES DAILY FOR 10 DAYS -- FINISH ALL MEDICINE -- alprazolam 1 mg tablet 0.5 mg PO HS Patient Comments: TAKE 1/2 OR 1 TABLET BY MOUTH EVERY NIGHT AT BEDTIME NEEDED FOR INSOMNIA amlodipine 5 mg tablet 5 mg PO DAILY Patient Comments: TAKE ONE TABLET BY MOUTH ONCE DAILY aspirin 81 mg Tablet 81 mg PO DAILY Referrals Follow up/Referrals: Liudmila Marvin APRN [Primary Care Provider] - See instructions Activity Restrictions/Add. 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 I spoke with Dr. Falk with [facility] neurosurgery in the [facility] took your information and will call with an appointment most likely to be seen next week or the week after. Please continue take your medications including your daily baby aspirin. Return with any strokelike symptoms as discussed but is unlikely that you will have significant worsening of her symptoms but I do believe your vertiginous symptoms are secondary to the vertebral artery stenosis that we found today. Please keep the appointment with neurosurgery once it is made. Clinical Impressions Clinical Impression: Vertigo, General weakness, Vertebral artery stenosis Discharge ED Provider: Bailey Caraballo General Adult HPI General Chief complaint: Dizziness Stated complaint: dizzy, confused Time Seen by Provider: 07/02/23 18:06 Mode of Arrival: Wheelchair Source of Information: Patient Limitations: No Limitations Description of Symptoms (Recalled from ER Triage Doc. by RN): pt states she is here for same s/s she was here for on friday. dizziness, weakness, and confusion. pt is alert and oriented but having a hard time answering certain medical history questions History of Present Illness HPI narrative: Patient is a 77-year-old female presenting to the emergency department for persistent dizziness weakness and confusion. States this has been chronic to some extent including the weakness and confusion and slowly worsening over time. She is accompanied by her neighbor who agrees with this. She states that she has had some dizziness which she describes as a vertiginous type symptom and rotary sensation. She states this is relatively constant but worsened with any movement. She was here few days ago with similar symptoms she states and she had recently been discontinued or decreased on her carvedilol without any significant improvement. Her potassium was mildly depressed and replaced without any significant improvement as well. She did not have any imaging of her brain but also denies any other neurologic symptoms including any numbness weakness tingling in the arms or legs changes in coordination or changes in vision. Related Data Home Medications Medication Instructions Recorded Confirmed alprazolam 1 mg tablet 0.5 mg PO QDAY anxiety 08/12/17 06/30/23 aspirin 81 mg tablet,delayed 81 mg PO QDAY antiplatelet 08/12/17 06/30/23 release (Adult Low Dose Aspirin) losartan 50 mg tablet 100 mg PO DAILY hypertension 11/24/18 06/30/23 alprazolam 1 mg tablet 0.5 mg PO HS sleep 01/14/23 06/30/23 amlodipine 5 mg tablet 5 mg PO DAILY High blood pressure 01/14/23 06/30/23 amoxicillin 500 mg capsule 500 mg PO TID Infection 01/14/23 06/30/23 aspirin 81 mg tablet 81 mg PO FERCHO
--- NOTE | 2023-07-02 18:26 | ECG_ITS ---
APPROVED REPORT Exam: Resting ECG HR:63 bpm ECG Measurements Heart Rate 63 AXES NV 138 P 82 QRSd 84 QRS 64 QT 401 T 89 QTc 409 Conclusion SINUS RHYTHM MODERATE ST DEPRESSION [0.05+ mV ST DEPRESSION] ABNORMAL ECG UNCONFIRMED REPORT Electronically signed by : Hosea Johnson MD 07/04/2023 08:54:48
--- NOTE | 2023-07-02 18:41 | PC.NURSE ---
Pt ambulatory to bathroom with stand by assist only. Urine collected and sent to lab.
[2023-07-02 18:43] LABS: Microscopic, Urine URINE MICROSCOPIC (MICROSCOPIC)
--- NOTE | 2023-07-02 18:46 | PC.NURSE ---
RAD at for CXR
[2023-07-02 18:49] LABS: Basophils % 0.6 % (0.1-2.0); Eosinophils # 0.1 K/mm3 (0.0-0.4); Eosinophils % 1.9 % (0.1-12.0); Hematocrit 39.9 % (37.0-47.0); Hemoglobin 13.8 g/dL (12.2-16.2); Lymphocytes # 1.6 K/mm3 (0.7-4.5); Lymphocytes % 22.5 % (10-50); Mean Corpuscular HGB Conc 34.5 g/dL (31.8-35.4); Mean Corpuscular Hemoglobin 32.8 pg (27.0-31.2); Mean Corpuscular Volume 95.1 fl (81-99); Mean Platelet Volume 7.6 fl (7.4-10.4); Monocytes # 0.6 K/mm3 (0.1-1.0); Neutrophils # 4.7 K/mm3 (1.8-7.8); Neutrophils % 66.9 % (37.0-80.0); Platelet Count 263 K/mm3 (142-424); Red Blood Count 4.19 M/mm3 (4.20-5.40); Red Cell Distribution Width 12.5 % (11.5-17.5); White Blood Count 7.1 K/mm3 (4.8-10.8)
[2023-07-02 18:53] LABS: Appearance,Urine CLEAR (Clear); Bilirubin,Urine Negative (Negative); Blood, Urine 1+ (Negative); Color,Urine YELLOW (Yellow); Glucose,Urine (UA) Negative (Negative); Ketones,Urine Negative (Negative); Leukocyte Esterase,Urine Negative (Negative); Nitrate,Urine Negative (Negative); PH,Urine 7.5 (5.0-8.5); Protein,Urine Negative (Negative); Urobilinogen,Urine 0.2 EU/dl (0.2)
[2023-07-02 18:59] LABS: Alanine Aminotransferase 21 U/L (12-78); Alkaline Phosphatase 77 U/L (38-126); Aspartate Amino Transferase 39 U/L (14-36); Bilirubin,Total 0.5 mg/dl (0.2-1.3); Blood Urea Nitrogen 8 mg/dl (7-17); Carbon Dioxide 26 mmol/L (22.0-30.0); Chloride 96 mmol/L (98-107); Creatinine Clearance Estimated 32 mL/min (50-200); Estimated Glomerular Filt Rate 97 ml/min (>60); GFR (African American) 118 ML/MIN (>60); Glucose 107 mg/dl (74-100); Phosphorous 3.5 mg/dl (2.5-4.5)
[2023-07-02 19:00] LABS: Albumin Level 4.5 g/dl (3.5-5.0); Albumin/Globulin Ratio 1.6 (1.1-1.8); Anion Gap 8.7 mEq/L (5-15); Globulin 2.8 g/dL (1.3-3.2); Magnesium 1.9 mg/dl (1.6-2.3); Potassium 3.7 mmoL/L (3.5-5.1); Sodium 127 mmol/L (136-145); Total Protein,Serum 7.3 g/dl (6.3-8.2)
[2023-07-02 19:01] LABS: RBC,Urine Occasional #/hpf (0-3); Squamous Epithelial Cell,Urine Occasional #/hpf (0-5)
--- NOTE | 2023-07-02 19:09 | PC.NURSE ---
radiology at bedside to take for ct scans
[2023-07-02 19:11] LABS: NT Pro Brain Natriuretic Pep. 288 pg/mL (0-450)
[2023-07-02 19:25] LABS: Troponin I < 0.01 ng/ml (0.00-0.034)
[2023-07-02 19:30] LABS: Thyroid Stimulating Hormone 1.68 uIU/mL (0.465-4.68)
--- NOTE | 2023-07-02 19:40 | PC.NURSE ---
Rounded on patient, sitting up in bed at this time. Speaking with visitor. Patient continues to report ongoing dizziness described as feeling like she's swaying back and forth states that she feels that she feels that she could faint any moment. Assist x 1 to restroom at this time.
--- NOTE | 2023-07-02 20:55 | PC.NURSE ---
Called [facility] for possible transfer for [facility] per Dr Caraballo. Advised they are on other called and will call us back. CR
--- NOTE | 2023-07-02 22:18 | PC.NURSE ---
Called [facility] back about possible transfer. Advised that they are very backed up and that is why nobody has called us back yet. Advised that it shoudl be about another 10-15 mins. and RN advised. CR
--- NOTE | 2023-07-02 22:20 | PC.NURSE ---
Provider at bedside speaking to patient.
== END 2023-07-02 23:01 | disposition home or self-care (01) ==
PROVIDERS: Emergency Provider Student in an Organized Health Care Education/Training Program; PCP Nurse Practitioner Family
DX: R42 Dizziness and giddiness (principal); R53.1 Weakness; I65.09 Occlusion and stenosis of unspecified vertebral artery
CPT/HCPCS: 70450; 70496; 70498; 71045; 80053; 81001; 83735; 83880; 84100; 84443; 84484; 85025; 93005; 96360; 99285; Q9967

== ENCOUNTER 2024-03-04 12:36 | Outpatient (CLI) | payer MEDICARE, SELFPAY ==
--- NOTE | 2024-03-04 12:41 | US_ITS ---
FINAL REPORT CLINICAL HISTORY: HTN/LEFT ARM PAIN -- hypothyroidism -- hoarseness COMPARISON: None FINDINGS: THYROID ULTRASOUND: There is severe atrophic change of the thyroid gland, with a diffusely heterogenic echotexture. The overall appearance is consistent with chronic thyroiditis. No focal nodules are identified. The right thyroid gland measures 2.3 cm in sagittal length, and the left thyroid gland measures 2.2 cm in sagittal length. IMPRESSION: Severe atrophic change of the thyroid gland with a diffusely heterogeneous echotexture, consistent with chronic thyroiditis. Reviewed, Interpreted and Dictated by Saida Bishop MD Transcribed by Lucinda Greene Authenticated and [facility]
--- NOTE | 2024-03-04 13:15 | CA_ITS ---
APPROVED REPORT EXAM: Comprehensive 2D, Doppler, and color-flow Echocardiogram Improvement Spec: Radha Rushing RVT Ht: 5 ft 1 in Wt: 93lbs BSA: 1.36 BP: 143/77 mmHg Indications: HTN,DIZZINESS 2D Dimensions LA Volume 20.70 mL LA Volume Index 15.11 mL/m2 (M/F) 16-34 M-Mode Dimensions RVDd 1.73 cm (0.9-2.6) LA Diam 2.65 cm (1.9-4.0) LVDd 3.67 cm (3.5-5.7) LVDs 2.29 cm (3.5-5.7) IVSd 0.78 cm (0.6-1.1) PWd 0.32 cm (0.6-1.1) EF (Teich) 68.60% FS 37.60% EDV (Teich) 57.00 mL TAPSE 1.60 (<1.7) ESV (Teich) 17.90 mL LV Diastology E Decel Time 253 (160-240 msec) E/A Ratio 1.1 Aortic Valve GLORIA Index 1.39 cm2/m2 AoV Peak Davin. 147.0 (50-130 cm/s) AO Peak GR. 8.70 mmHg AO Mean GR. 5.00 (<5 mmHg) AO VTI 32.0 (18-25 cm) GLORIA (VTI) 1.95 (2.5-4.5 cm2) Mitral Valve MV E Max Davin. 72.0 (40-130 cm/s) MV A Velocity 65.0 (40-130 cm/s) E/A Ratio 1.10 MV PHT 74.0 ms Pulmonary Valve PV Peak Velocity 81.0 (50-150 cm/s) Tricuspid Valve TR P. Velocity 253.00 cm/s RAP Estimate 10.00 mmHg RVSP 35.60 mmHg Left Ventricle The left ventricle is normal size. The left ventricular systolic function is normal. The left ventricular ejection fraction is within the normal range. There is normal left ventricular wall thickness. There is normal LV segmental wall motion. The left ventricular diastolic function is normal. LVEF is 55%. Right Ventricle The right ventricle is normal size. The right ventricular systolic function is normal. Atria The left atrium size is normal. The right atrium size is normal. There is no Doppler evidence of interatrial shunt. Aortic Valve The aortic valve is normal in structure. The aortic valve is trileaflet. There is no aortic valvular stenosis. No aortic regurgitation is present. Mitral Valve The mitral valve is normal in structure. No evidence of mitral valve stenosis. Mild mitral regurgitation. Tricuspid Valve The tricuspid valve leaflets are thin and pliable. Mild tricuspid regurgitation. RVSP is 25-30 mmHg. Pulmonic Valve The pulmonary valve is normal in structure. Trace pulmonic regurgitation. The ascending aorta is not well-visualized. Great Vessels The aortic root is normal in size. IVC is normal in size and collapses >50% with inspiration. Pericardium There is no pericardial effusion. Other Information Study Quality: Adequate Conclusion Normal biventricular systolic function. Mild MR, mild TR. Electronically signed by : Ilsa Momin MD 03/04/2024 22:57:36
== END 2024-03-04 23:59 | disposition home or self-care (01) ==
LOC: RAD 12:36
PROVIDERS: PCP Nurse Practitioner Family; Visit Provider Nurse Practitioner Family
DX: I10 Essential (primary) hypertension (principal); I34.0 Nonrheumatic mitral (valve) insufficiency; I36.1 Nonrheumatic tricuspid (valve) insufficiency; E03.9 Hypothyroidism, unspecified; R49.0 Dysphonia; Z86.39 Personal history of other endocrine, nutritional and metabolic disease
CPT/HCPCS: 76536; 93306

== ENCOUNTER 2024-09-21 00:36 | Observation (INO) | payer MEDICARE, SELFPAY ==
[2024-09-21] VITALS (18 sets, daily range): BP systolic 85–155; BP diastolic 47–80; PULSE 50–76; RESP 12–26; TEMP 36.7–37; O2SAT 97–100; BMI 18.0; BMI 18.8
--- NOTE | 2024-09-21 00:54 | XR_ITS ---
PROCEDURE INFORMATION: Exam: XR Left Shoulder Exam date and time: 09/21/2024 1:14 AM Age: 79 years old Clinical indication: Pain; Shoulder; Left; Fall; Additional info: Trauma TECHNIQUE: Imaging protocol: Radiologic exam of the left shoulder. Views: 2 or more views. Total images: 4 COMPARISON: CR XR SHOULDER LT MIN 2V 09/21/2024 1:14 AM FINDINGS: Bones/joints: Acute mildly impacted fracture of the humeral head at the level of the surgical neck with partial avulsion of the greater tuberosity. Inferior subluxation of the humeral head compatible with large joint effusion/hemarthrosis. No joint dislocation. Mild degenerative change AC joint. Soft tissues: Soft tissue swelling at the fracture site. IMPRESSION: 1. Acute mildly impacted fracture of the humeral head at the surgical neck with partial avulsion of the greater tuberosity. 2. Inferior subluxation of humeral head compatible with large joint effusion/hemarthrosis.
--- NOTE | 2024-09-21 00:55 | XR_ITS ---
PROCEDURE INFORMATION: Exam: XR Left Humerus Exam date and time: 09/21/2024 1:14 AM Age: 79 years old Clinical indication: Pain; Upper arm; Left; Fall; Additional info: Trauma TECHNIQUE: Imaging protocol: Radiologic exam of the left humerus. Views: 2 or more views. Total images: 2 COMPARISON: CR XR SHOULDER LT MIN 2V 09/21/2024 1:14 AM FINDINGS: Bones/joints: Acute mildly impacted fracture of the humeral head at the level of the surgical neck with partial avulsion of the greater tuberosity. Associated joint effusion/hemarthrosis. No joint dislocation. Mild degenerative change AC joint. Unremarkable distal humerus. Soft tissues: Soft tissue swelling at the fracture site. IMPRESSION: 1. Acute mildly impacted fracture of the humeral head at the surgical neck with partial avulsion of the greater tuberosity. 2. Joint effusion/hemarthrosis.
--- NOTE | 2024-09-21 00:59 | CT_ITS ---
PROCEDURE INFORMATION: Exam: CT Head Without Contrast Exam date and time: 09/21/2024 1:23 AM Age: 79 years old Clinical indication: Pain; Additional info: Ground level fall TECHNIQUE: Imaging protocol: Computed tomography of the head without contrast. Total images: 544 Radiation optimization: All CT scans at this facility use at least one of these dose optimization techniques: automated exposure control; mA and/or kV adjustment per patient size (includes targeted exams where dose is matched to clinical indication); or iterative reconstruction. COMPARISON: CT ANGIO HEAD 07/02/2023 7:19 PM FINDINGS: Brain: No acute intracranial hemorrhage, midline shift, or mass. Moderate cortical and cerebellar atrophy. Mild periventricular white matter hypodensity compatible with remote small vessel ischemic change. No territorial infarct. Basilar cisterns are preserved. Remote right pontine lacunar infarct. Cerebral ventricles: No ventriculomegaly. Paranasal sinuses: Mild mucosal thickening base of the right maxillary sinus. No air-fluid levels. Mastoid air cells: Visualized mastoid air cells are well aerated. Orbital cavities: Bilateral orbital lens replacement. Bones: Osteopenia. No skull fracture. Soft tissues: Unremarkable. IMPRESSION: 1. No acute intracranial process. 2. Chronic findings.
--- NOTE | 2024-09-21 00:59 | CT_ITS ---
PROCEDURE INFORMATION: Exam: CT Cervical Spine Without Contrast Exam date and time: 09/21/2024 1:25 AM Age: 79 years old Clinical indication: Neck pain; Additional info: Ground level fall L shoulder pain TECHNIQUE: Imaging protocol: Computed tomography of the cervical spine without contrast. Total images: 260 Radiation optimization: All CT scans at this facility use at least one of these dose optimization techniques: automated exposure control; mA and/or kV adjustment per patient size (includes targeted exams where dose is matched to clinical indication); or iterative reconstruction. COMPARISON: CT ANGIO NECK 07/02/2023 7:19 PM FINDINGS: Bones: Osteopenia. Straightened cervical lordosis. Vertebral body height is preserved. Minor retrolisthesis of C4 with respect to C3 and C5 is most likely degenerative. The base of the dens and the C1 and C2 articulations are preserved with moderate degenerative arthropathy. The cervicooccipital junction is intact. Facet joints are appropriately aligned with moderate multilevel degenerative spondylosis. Severe degenerative disc disease C3 through C6 with moderate degenerative disc disease C6-C7. Minimal anterolisthesis C7-T1. Mild degenerative changes upper thoracic spine. Multilevel bilateral neural foraminal encroachments. Mild multilevel acquired spinal canal stenosis, greatest at C4. Lungs: Biapical fibrosis. Thyroid: Atrophic versus absent thyroid gland. Soft tissues: Soft tissue ossifications posterior to the cervical spine compatible with remote ligamentous injury. No prevertebral soft tissue swelling. Unremarkable soft tissues of the neck. IMPRESSION: 1. No acute cervical fracture or traumatic subluxation. 2. Straightened lordosis from position or spasm 3. Severe degenerative disc disease C3 through C6. 4. Additional chronic and incidental findings.
[2024-09-21] MEDS: ACETAMINOPHEN 500MG TAB 1000 MG PO (01:04)
[2024-09-21] MEDS: IBUPROFEN 400 MG TABLET PO (01:04)
--- NOTE | 2024-09-21 01:28 | PC.NURSE ---
Pt back from CT via stretcher
--- NOTE | 2024-09-21 01:36 | CT_ITS ---
PROCEDURE INFORMATION: Exam: CT Left Upper Extremity Without Contrast, Shoulder Exam date and time: 09/21/2024 1:48 AM Age: 79 years old Clinical indication: Pain; Shoulder; Left; Additional info: Fall, FX TECHNIQUE: Imaging protocol: Computed tomography of the left upper extremity without contrast. Exam focused on the shoulder. Total images: 545 Radiation optimization: All CT scans at this facility use at least one of these dose optimization techniques: automated exposure control; mA and/or kV adjustment per patient size (includes targeted exams where dose is matched to clinical indication); or iterative reconstruction. COMPARISON: CR XR SHOULDER LT MIN 2V 09/21/2024 1:14 AM FINDINGS: Bones/joints: Acute impacted humeral head fracture at the surgical neck with avulsion of the greater tuberosity. Additional component of fracture extends to the bicipital groove. No involvement of the articular surface. No kamari joint dislocation. Large lipohemarthrosis with secondary inferior subluxation of the humeral head with regard to the glenoid. No glenoid fracture. Degenerative changes the AC joint. No clavicular fracture. Soft tissues: Normal. Lymph nodes: No axillary lymphadenopathy. Lungs: Left apical fibrosis/scarring. Visualized left lung is clear. IMPRESSION: 1. Acute impacted humeral head fracture at the surgical neck. Avulsion of the greater tuberosity. Component of fracture extends through the bicipital groove. 2. Large lipohemarthrosis with secondary inferior subluxation of the humeral head. 3. Additional chronic findings.
[2024-09-21] MEDS: HYDROCODONE/APAP 5/325 MG TABLET 1 TAB PO (01:42)
--- NOTE | 2024-09-21 01:49 | PC.NURSE ---
Pt to CT scan via stretcher
--- NOTE | 2024-09-21 01:51 | PC.NURSE ---
Pt awake and alert denies pain at this time. Had been tearful until time that police officers left then began to apply her makeup and putting jewelery that she is pulling out of her purse. Pt smiling and laughing at this time. Resp full and easy Speech clear and appropriate
--- NOTE | 2024-09-21 01:55 | HMH.EDGENADL ---
Discharge Plan Disposition Patient Disposition: Admitted Chief Complaint: Fall Prescriptions Prescriptions: No Action alprazolam 1 mg tablet 0.5 mg PO QDAY aspirin [Adult Low Dose Aspirin] 81 mg tablet,delayed release (DR/EC) 81 mg PO QDAY losartan 50 mg tablet 100 mg PO DAILY atorvastatin 10 mg tablet 10 mg PO QDAY Qty: 30 0RF carvedilol 12.5 mg tablet 12.5 mg PO BID Qty: 60 0RF Rx Instructions: Needs follow up appt. amoxicillin 500 mg capsule 500 mg PO TID Patient Comments: TAKE ONE CAPSULE BY MOUTH THREE TIMES DAILY FOR 10 DAYS -- FINISH ALL MEDICINE -- alprazolam 1 mg tablet 0.5 mg PO HS Patient Comments: TAKE 1/2 OR 1 TABLET BY MOUTH EVERY NIGHT AT BEDTIME NEEDED FOR INSOMNIA amlodipine 5 mg tablet 5 mg PO DAILY Patient Comments: TAKE ONE TABLET BY MOUTH ONCE DAILY aspirin 81 mg Tablet 81 mg PO DAILY Referrals Follow up/Referrals: Liudmila Marvin APRN [Primary Care Provider] - See instructions Clinical Impressions Clinical Impression: Fall, Generalized weakness, Closed fracture of head of left humerus, Lipohemarthrosis, Chronic hyponatremia Print Language Print Language: [place]at[place] Discharge ED Provider: Jamila Acevedo General Adult HPI General Chief complaint: Fall Stated complaint: fall, possible L shoulder injuryt Time Seen by Provider: 09/21/24 00:55 Mode of Arrival: Ambulatory Source of Information: Patient Limitations: Physical Limitations Description of Symptoms (Recalled from ER Triage Doc. by RN): Pt fell at home trying to feed pets, patient slipped and impacted her L shoulder causing pain, denies LOC and takes ASA History of Present Illness HPI narrative: 79-year-old female presents to the ER with complaints of left shoulder pain. Patient reports she was at home feeding feral cats when she tripped and landed on her left shoulder. She denies striking her head or losing consciousness. She does take daily aspirin, no other blood thinners. Review of records demonstrates she does have a history of atherosclerosis, abnormal ECG, she denies syncope or lightheadedness, no dizziness, numbness, tingling, or weakness. She reports that the injury happened approximately 6 hours prior to arrival and she was encouraged to come to the ER by family when her pain was not getting better. She states she is having difficulty moving the left upper extremity secondary to pain at the shoulder. She denies other pain or injuries. No other concerns. Related Data Home Medications ?Medication ?Instructions ?Recorded ?Confirmed alprazolam 1 mg tablet 0.5 mg PO QDAY anxiety 08/12/17 06/30/23 aspirin 81 mg tablet,delayed 81 mg PO QDAY antiplatelet 08/12/17 06/30/23 release (Adult Low Dose Aspirin) losartan 50 mg tablet 100 mg PO DAILY hypertension 11/24/18 06/30/23 alprazolam 1 mg tablet 0.5 mg PO HS sleep 01/14/23 06/30/23 amlodipine 5 mg tablet 5 mg PO DAILY High blood pressure 01/14/23 06/30/23 amoxicillin 500 mg capsule 500 mg PO TID Infection 01/14/23 06/30/23 aspirin 81 mg tablet 81 mg PO DAILY heart health 01/14/23 06/30/23 Previous Rx's ?Medication ?Instructions ?Recorded atorvastatin 10 mg tablet 10 mg PO QDAY hyperlipidemia #30 05/27/19 tabs carvedilol 12.5 mg tablet 12.5 mg PO BID coronary artery 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 Social History Smoking Status: Never smoker alcohol intake: never substance use type: denies use current occupational status: other Travel in the last 8 weeks: None Have you lived/traveled outside US in past 30 days?: No Contact w/someone who lives/traveled outside US past 30 days?: No Exposure to someone with infectious disease in past 14 days?: No Do you have a fever (greater than 100.4 F or 38 C)?: No Have you tested positive for COVID-19: No Exposed to someone with COVID-19 in past 14 days?: No Do you have a sore throat?: No Do you have a cough?: No Do you have any weakness?: No Do you have any diarrhea?: No Are you experiencing any unusual bleeding?: No Do you have any muscle aches/pain?: No Do you have any abdominal pain?: No Are you experiencing loss of taste or smell?: No Other Medical History Have you received the Flu Vaccine for this season: No Have you received the Pneumonia Vaccine: No ROS Obtained: Yes Systems reviewed as appropriate & no additional complaints except as documented Per HPI Physical Exam General General appearance: alert and in no apparent distress Head Head exam: atraumatic and normocephalic Eye Eye exam: Present PERRL and EOMI ENT ENT exam: Present mucous membranes moist Neck Neck exam: Present normal inspection and full ROM; Absent tenderness Chest Chest inspection: Present symmetric chest wall rise; Absent tenderness Respiratory Respiratory exam: Present normal lung sounds bilaterally; Absent respiratory distress, wheezes or stridor Cardiovascular Cardiovascular exam: Present regular rate and normal rhythm Abdominal Exam Abdominal exam: Present soft; Absent distention, tenderness, guarding or rebound Extremities Exam Extremities exam: Present tenderness (Tenderness to palpation of the proximal left humerus without obvious deformity or crepitus) and other (Neurovascular intact throughout); Absent full ROM (Range of motion of left shoulder limited secondary to pain, passive range of motion is painful but intact) Back Exam Back exam: Absent tenderness Neurological Exam Neurological exam: Present alert, oriented X3, CN II-XII intact and normal gait; Absent motor sensory deficit Psychiatric Psychiatric exam: Present normal affect and normal mood Skin Skin exam: Present warm and dry Medical Decision Making Medical Records Medical records reviewed: Yes I reviewed the patient's medical records. Screening: Per USPSTF and CDC recommendations, given the prevalence of disease in our region, it is our hospital?s policy to screen for HIV and viral Hepatitis for all patients aged 18 and over and those with ongoing risk factors. MR Comment: Patient has previously been evaluated in our ER for generalized weakness. She does have history of left vertebral artery stenosis that was reportedly followed up outpatient. Is[place]oro Inquiry Pt receiving controlled substance: No Vital Signs: 09/21/24 00:39 09/21/24 01:00 09/21/24 01:30 Temperature 98.3 F Temperature Source Oral Pulse Rate 68 73 Pulse Rate [Right Radial] 73 Respiratory Rate 16 Blood Pressure 155/73 H 130/80 Blood Pressure [Right Arm] 143/78 H Blood Pressure Mean [Right Arm] 99 Blood Pressure Source Blood Pressure Source [Right Arm] Automatic Cuff Blood Pressure Position Blood Pressure Position [Right Arm] Sitting 02 Sat by Pulse Oximetry 98 99 98 Oxygen Delivery Method Room Air Room Air Room Air 09/21/24 02:00 09/21/24 02:25 09/21/24 02:35 Temperature Temperature Source Pulse Rate 69 50 L 65 Pulse Rate [Right Radial] Respiratory Rate 16 26 H Blood Pressure 133/74 85/47 L 109/62 L Blood Pressure [Right Arm] Blood Pressure Mean [Right Arm] Blood Pressure Source Automatic Cuff Blood Pressure Source [Right Arm] Blood Pressure Position Sitting Blood Pressure Position [Right Arm] 02 Sat by Pulse Oximetry 99 100 97 Oxygen Delivery Method Room Air Room Air Room Air 09/21/24 03:00 09/21/24 03:01 09/21/24 03:25 Temperature 98.6 F Temperature Source Oral Pulse Rate 74 74 72 Pulse Rate [Right Radial] Respiratory Rate 16 24 12 Blood Pressure 150/69 H 150/69 H 145/70 H Blood Pressure [Right Arm] Blood Pressure Mean [Right Arm] Blood Pressure Source Automatic Cuff Blood Pressure Source [Right Arm] Blood Pressure Position Supine Blood Pressure Position [Right Arm] 02 Sat by Pulse Oximetry 99 100 99 Oxygen Delivery Method Room Air Room Air Room Air 09/21/24 03:30 Temperature Temperature Source Pulse Rate 71 Pulse Rate [Right Radial] Respiratory Rate 23 Blood Pressure 121/71 Blood Pressure [Right Arm] Blood Pressure Mean [Right Arm] Blood Pressure Source Blood Pressure Source [Right Arm] Blood Pressure Position Blood Pressure Position [Right Arm] 02 Sat by Pulse Oximetry 100 Oxygen Delivery Method Room Air Lab Data Lab Results 09/21/24 03:58: WBC 13.3 H, RBC 3.51 L, Hgb 11.2 L, Hct 32.0 L, MCV 91.2, MCH 31.9 H, MCHC 35.0, RDW 11.5, Plt Count 229, MPV 8.7, Neut % (Auto) 80.3 H, Lymph % (Auto) 10.4, [place] % (Auto) 7.7, Eos % (Auto) 0.6, Baso % (Auto) 0.5, Neut # (Auto) 10.7 H, Lymph # (Auto) 1.4, [place] # (Auto) 1.0, Eos # (Auto) 0.1, Baso # (Auto) 0.1, Sodium 128 L, Potassium 3.7, Chloride 98, Carbon Dioxide 24, Anion Gap 9.7, BUN 13, Creatinine 0.50 L, Estimated Creat Clear 33, Estimated GFR 120, Est GFR ( Amer) 145, Glucose 129 H, Calcium 8.6, Total Bilirubin 0.5, AST 33, ALT 20, Alkaline Phosphatase 78, Total Protein 6.5, Albumin 4.1, Globulin 2.4, Albumin/Globulin Ratio 1.7 09/21/24 03:58 09/21/24 03:58 Orders (Tests/Meds): ED MEDICATIONS Discontinued Medications Generic Name Dose Route Start Last Admin Trade Name Freq PRN Reason Stop Dose Admin Acetaminophen 1,000 mg 09/21/24 01:01 09/21/24 01:04 Acetaminophen 500mg Tab PO 09/21/24 01:02 500 mg ONCE ONE Administration Hydrocodone Bitart/Acetaminophen 1 tab 09/21/24 01:38 09/21/24 01:42 Hydrocodone/Apap 5/325 Mg Tablet PO 09/21/24 01:39 1 tab ONCE ONE Administration Sodium Chloride 1,000 mls @ 999 mls/hr 09/21/24 02:51 09/21/24 03:01 Sod Chlor 0.9% 1000ml Bag IV 09/21/24 03:51 999 mls/hr .Q1H1M ONE Administration Ibuprofen 400 mg 09/21/24 01:01 09/21/24 01:04 Ibuprofen 400 Mg Tablet PO 09/21/24 01:02 400 mg ONCE ONE Administration Ondansetron HCl 4 mg 09/21/24 02:50 09/21/24 03:01 Ondansetron 4mg Odt SL 09/21/24 02:51 4 mg ONCE ONE Administration Sodium Chloride 1,000 mg 09/21/24 04:24 09/21/24 04:33 Sodium Chloride 1,000mg Tablet PO 09/21/24 04:25 1,000 mg ONCE ONE Administration ORDERS Category Date Time Status CT cervical spine wo con Stat Cat Scan 09/21/24 00:[address] head/brain wo con Stat Cat Scan 09/21/24 00:[address] shoulder LT wo con Stat Cat Scan 09/21/24 01:36 Completed CXR --portable [XR chest portable] Stat Exams 09/21/24 02:45 Completed XR humerus LT Stat Exams 09/21/24 00:55 Completed XR shoulder LT min 2V Stat Exams 09/21/24 00:54 Completed CBC w/Auto Diff [Complete Blood Count Auto Diff] Stat Lab 09/21/24 03:58 Completed CMP [Comprehensive Metabolic Panel] Stat Lab 09/21/24 03:58 Results HIV Combo Routine Lab 09/21/24 02:45 Ordered Hepatitis C Ab Qual. W/ RFX Routine Lab 09/21/24 02:45 Ordered Trop I [Troponin I] Stat Lab 09/21/24 03:58 Results Troponin I Q3H Lab 09/21/24 05:45 Ordered Troponin I Q3H Lab 09/21/24 08:45 Ordered Medical Decision Narrative: In summary, this 79-year-old female with comorbidities described in the HPI which increased the amount of data to be reviewed as well as her overall morbidity presents to the emergency department today with left shoulder pain after mechanical fall. On initial evaluation patient is hemodynamically stable, afebrile, tenderness to palpation of the left proximal humerus/shoulder without deformity or crepitus, neurovascularly intact distally, range of motion of left shoulder is limited secondary to pain actively but is able to be ranged with passive movement though this is painful. No other traumatic findings on exam. Differential diagnosis includes but is not limited to fracture, dislocation, neurovascular injury was considered but not appreciated on exam, given patient's age I cannot rule out intracranial or C-spine injury so these were also considered. Based on these concerns, I ordered CT imaging of the head, C-spine, x-rays of the left upper extremity. I do not believe patient requires laboratory workup at this time. X-rays left upper extremity were personally interpreted and appear to demonstrate an impacted fracture of the left humeral head with widened joint space but I do not appreciate dislocation. See radiology read for final interpretation. Based on my interpretation of the x-rays, I contacted Dr. Navas with orthopedics. We reviewed the imaging and at this time he recommends CT imaging to further evaluate the joint which he does not believe is likely dislocated. He states if it is not dislocated patient can be treated with sling and follow-up in clinic outpatient. CT head and C-spine personally interpreted do not demonstrate acute traumatic injury, see radiology reads for final interpretations. After imaging, patient was complaining of worsening pain so she received [place]. She had previously only received Tylenol and ibuprofen at her request. CT left shoulder was reviewed and demonstrates impacted humeral head fracture with subluxation but no dislocation of the shoulder. I discussed this with Dr. Navas who recommends sling and outpatient management at this time. He recommended the sling be placed tight so that there is elevation of the head of the humerus into the glenoid fossa. On reassessment, patient became hypotensive and nauseous after receiving [place]. IV was started and she is receiving IV fluids. Basic labs were drawn, EKG and Trope were also drawn. Chest x-ray personally interpreted does not demonstrate acute intrathoracic abnormality, EKG verse interpreted demonstrate sinus rhythm, rate 73, normal axis, normal IL and QTc, no STEMI, CMP with hyponatremia which appears to be chronic, sodium 128, no other acute actionable electrolyte abnormalities, troponin undetectably low less than 0.01. I do not believe patient had cardiac event causing her sudden symptoms, I believe it was side effect of the [place]. I did order salt tablet to be administered for the patient given her hyponatremia, however this was not available. Patient's symptoms improved, we attempted to ambulate the patient in the ER and she is extremely unsteady on her feet. She states she often uses a walker to get around at home but at this time she is not even stable with a two-person assist and with her left arm in a sling would be unable to use a walker. She is not appropriate for discharge and requires admission. She is agreeable to this plan. I discussed this case with the hospitalist, patient accepted for admission for generalized weakness. Critical Care Critical Care Time Critical Care Time: No
--- NOTE | 2024-09-21 02:43 | ECG_ITS ---
APPROVED REPORT Exam: Resting ECG HR:73 bpm ECG Measurements Heart Rate 73 AXES HI 135 P 82 QRSd 83 QRS 38 QT 395 T 67 QTc 422 Conclusion SINUS RHYTHM POSSIBLE LEFT ATRIAL ENLARGEMENT [-0.1mV P-WAVE IN V1/V2] BORDERLINE ECG No STEMI Electronically signed by : NAVARRO PONCE, 09/21/2024 06:55:56
--- NOTE | 2024-09-21 02:45 | XR_ITS ---
PROCEDURE INFORMATION: Exam: XR Chest Exam date and time: 09/21/2024 2:55 AM Age: 79 years old Clinical indication: Other: Hypotension; Additional info: Transient hypotension TECHNIQUE: Imaging protocol: Radiologic exam of the chest. Views: 1 view. COMPARISON: CR XR CHEST PORTABLE 07/02/2023 6:40 PM FINDINGS: Lungs: Hyperinflation suspect underlying COPD. No focal abnormalities. Pleural spaces: Unremarkable. No pleural effusion. No pneumothorax. Heart/Mediastinum: Stable moderate cardiomegaly. Bones/joints: Unremarkable. IMPRESSION: Hyperinflation suspect underlying COPD. No focal abnormalities. Stable moderate cardiomegaly.
--- NOTE | 2024-09-21 02:53 | PC.NURSE ---
Patient began to get hypotensive and felt altered post admin of [place], Provider placed order for Zofran, IV and Fluids along with 12 Lead EKG. Patient began to improve post IV Insertion, fluids and Medication admin.
[2024-09-21] MEDS: 0.9 % SODIUM CHLORIDE 1000ML 1,000 ML 999 ML IV (03:01)
[2024-09-21] MEDS: ONDANSETRON 4MG ODT 4 MG SL (03:01)
--- NOTE | 2024-09-21 03:35 | PC.NURSE ---
Patient stated that she is unsure if she would like to go home or be admitted due to condition secondary to potential syncopal episode. Provider made aware, labs to be sent and patient to be re evaluated.
[2024-09-21 04:10] LABS: Basophils # 0.1 K/mm3 (0-0.2); Basophils % 0.5 % (0.1-2.0); Eosinophils # 0.1 K/mm3 (0.0-0.4); Eosinophils % 0.6 % (0.1-12.0); Hemoglobin 11.2 g/dL (12.2-16.2); Lymphocytes # 1.4 K/mm3 (0.7-4.5); Lymphocytes % 10.4 % (10-50); Mean Corpuscular Hemoglobin 31.9 pg (27.0-31.2); Mean Corpuscular Volume 91.2 fl (81-99); Mean Platelet Volume 8.7 fl (7.4-10.4); Monocytes % 7.7 % (1.7-9.3); Neutrophils # 10.7 K/mm3 (1.8-7.8); Neutrophils % 80.3 % (37.0-80.0); Platelet Count 229 K/mm3 (142-424); Red Blood Count 3.51 M/mm3 (4.20-5.40); Red Cell Distribution Width 11.5 % (11.5-17.5); White Blood Count 13.3 K/mm3 (4.8-10.8)
[2024-09-21 04:15] LABS: Albumin Level 4.1 g/dl (3.5-5.0); Chloride 98 mmol/L (98-107)
[2024-09-21 04:16] LABS: Potassium 3.7 mmoL/L (3.5-5.1); Sodium 128 mmol/L (136-145)
[2024-09-21 04:18] LABS: Alanine Aminotransferase 20 U/L (12-78); Anion Gap 9.7 mEq/L (5-15); Aspartate Amino Transferase 33 U/L (14-36); Blood Urea Nitrogen 13 mg/dl (7-17); Carbon Dioxide 24 mmol/L (22.0-30.0); Creatinine Clearance Estimated 33 mL/min (50-200); Estimated Glomerular Filt Rate 120 ml/min (>60); GFR (African American) 145 ML/MIN (>60)
[2024-09-21 04:19] LABS: Albumin/Globulin Ratio 1.7 (1.1-1.8); Alkaline Phosphatase 78 U/L (38-126); Bilirubin,Total 0.5 mg/dl (0.2-1.3); Calcium 8.6 mg/dl (8.4-10.2); Globulin 2.4 g/dL (1.3-3.2); Glucose 129 mg/dl (74-100); Total Protein,Serum 6.5 g/dl (6.3-8.2)
[2024-09-21] MEDS: SODIUM CHLORIDE 1,000MG TABLET 1000 MG PO ×2 (04:33→14:17)
[2024-09-21 04:36] LABS: Troponin I < 0.01 ng/ml (0.00-0.034)
--- NOTE | 2024-09-21 04:57 | PC.NURSE ---
Patient report was given to Eduin RIVAS, 2nd Floor assesment was unchnaged patient was placed on PW for voiding. Patient was changed into a gown and placed back on monitor patient vitals noted to be stable, Pt's GCS 14, AO x 4 Skin pink, warm and dry.
--- NOTE | 2024-09-21 05:25 | CA_ITS ---
APPROVED REPORT EXAM: Comprehensive 2D, Doppler, and color-flow Echocardiogram Director Of Culture: VICKIE Montgomery, RVS Ht: 5 ft 0 in Wt: 97lbs BSA: 1.37 BP: 121/79 mmHg Indications: Left humeral head fracture, S/p fall-chronic dizziness, Failure to thrive Echo 02/2024 Echo Enhancing Agent Comments: Technically limited due to left arm afixed with splint wrap to left chest wall. Patient supine throughout exam. 2D Dimensions Left Atrium 2.93 cm LA Volume 42.20 mL LA Volume Index [id number] mL/m2 (M/F) 16-34 M-Mode Dimensions RVDd 0.91 cm (0.9-2.6) LA Diam 3.79 cm (1.9-4.0) LVDd 3.59 cm (3.5-5.7) LVDs 2.60 cm (3.5-5.7) IVSd 0.72 cm (0.6-1.1) PWd 0.99 cm (0.6-1.1) EF (Teich) 54.50% EPSs 0.35 cm FS 27.60% EDV (Teich) 54.10 mL TAPSE 1.98 (<1.7) ESV (Teich) 24.60 mL LV Diastology E Decel Time 233 (160-240 msec) E/A Ratio 1.07 MED A' 10.80 cm/s LAT A' 13.80 cm/s Aortic Valve GLORIA Index 0.99 cm2/m2 AoV Peak Davin. 159.0 (50-130 cm/s) AO Peak GR. 10.10 mmHg AO Mean GR. 5.40 (<5 mmHg) AO VTI 37.7 (18-25 cm) GLORIA (VTI) 1.40 (2.5-4.5 cm2) Mitral Valve MV A Velocity 98.0 (40-130 cm/s) E/A Ratio 1.07 Tricuspid Valve TR P. Velocity 288.00 cm/s RAP Estimate 10.00 mmHg RVSP 43.10 mmHg Left Ventricle The left ventricle is normal size. The left ventricular systolic function is normal. The left ventricular ejection fraction is within the normal range. There is increased LV wall thickness. There is normal LV segmental wall motion. Diastolic function is indeterminate. LVEF is 55%. Right Ventricle Right ventricle is mildly dilated. The right ventricular systolic function is normal. Atria Left atrium is mildly dilated. The right atrium size is normal. There is no Doppler evidence of interatrial shunt. Aortic Valve Aortic valve is mildly thickened. There is no aortic valvular stenosis. Trace aortic regurgitation. Mitral Valve The mitral valve leaflets are mildly thickened. No evidence of mitral valve stenosis. Mild mitral regurgitation. Tricuspid Valve The tricuspid valve leaflets are thin and pliable. Mild to moderate tricuspid regurgitation. RVSP is 35-40 mmHg. Pulmonic Valve The pulmonary valve is normal in structure. Mild pulmonic regurgitation. Great Vessels The aortic root is normal in size. The ascending aorta is not well-visualized. The IVC is normal in size, but collapses < 50% with respirophasic variation. RA pressure is estimated at 8 mmHg. Pericardium There is a small sized, anterior pericardial effusion present. The largest pocket measures approximately 0.4 centimeters in diastole. No echo indications of tamponade. Other Information Study Quality: Fair Conclusion Normal biventricular systolic function. Mild RV dilation. LA dilation. Mild to moderate TR. Mild MR, mild PI. RVSP 35-40 mmHg. Small sized, anterior pericardial effusion present. The largest pocket measures approximately 0.4 centimeters in diastole. No echo indications of tamponade. Electronically signed by : Ilsa Momin MD 09/22/2024 02:01:45
--- NOTE | 2024-09-21 05:26 | P.HP_ITS ---
<Statement entered by Yannick Mehta MD - 09/28/24 14:20> I personally examined the patient and agree with the plan of care outlined by the [facility] [employer] [facility]. History of Present Illness *Admission Date: 09/21/24 *Reason for visit:: Following with fracture of left humeral head, chronic dizziness increasing *History of present illness: This patient who now has her son living with her because she cannot drive any longer.. Has been able to walk but because of her chronic dizziness and weakness is having failure to thrive., Her weight has always been about 94 pounds to 97 pounds per the notes that I have.. She saw Dr. Coreas back in 2018 from the last note I have from him. Patient states she has not felt well for more than a year feeling weak anytime she moves being dizzy. Says it goes away when she is sitting down being still. Patient was up tonight as she feeds several feral cats. And fell landing on the left arm. With x-ray showing an impacted femoral head with an acromion process fracture. ER physician did consult Dr. Navas and he is aware of the patient. After talking with the ER provider and assessing the patient. Realized that the patient is now unable to stand without assistance. She would not be able to use a walker. So I feel we need to admit her will also get a echocardiogram to evaluate heart function. As none are in her record.. Also to consult Dr. Navas question whether surgery is required for this left humeral head fracture Patient also noted that her labs are fairly well but she has chronic hyponatremia. mild. Also noting past history of having positive CHASIDY workup, also on thyroid medication.. Patient sees Dr. Agarwal so I do not have any recent notes to be able to evaluate at this time. Patient notes that she sometimes takes alprazolam for her anxiety and feels that she is depressed.. She states when she lies down she is able to sleep but on getting up she feels her heart fluttering and she becomes dizzy and this has been going on for more than 14 months.. Patient also noted with significant cervical spine d egeneration at C/3 to C/6. Also will involve case management physical therapy to evaluate whether patient would be able to recover at home or would need rehabilitation facility. The patient has a neighbor with her that she seems to be quite friendly and familiar with her. The neighbor said she would let her son who is at the house know what is going on. [facility] Disclaimer: The information contained in this section may have been updated after the patient was seen, as this information can be updated by other users. Medical History (Updated 09/21/24 @ 05:43 by Wolf Pina APRN) Positive titer for Anaplasma species Hypothyroidism Aberrant thyroid gland Aberrant thyroid tissue Anxiety Breast cancer Social History Smoking Status: Never smoker alcohol intake: never substance use type: denies use current occupational status: other Travel in the last 8 weeks: None Have you lived/traveled outside [place] in past 30 days?: No Contact w/someone who lives/traveled outside US past 30 days?: No Exposure to someone with infectious disease in past 14 days?: No Do you have a fever (greater than 100.4 F or 38 C)?: No Have you tested positive for COVID-19: No Exposed to someone with COVID-19 in past 14 days?: No Do you have a sore throat?: No Do you have a cough?: No Do you have any weakness?: No Do you have any diarrhea?: No Are you experiencing any unusual bleeding?: No Do you have any muscle aches/pain?: No Do you have any abdominal pain?: No Are you experiencing loss of taste or smell?: No Other Medical History Have you received the Flu Vaccine for this season: No Have you received the Pneumonia Vaccine: No Review of Systems Review of Systems Review of systems:: pertinent systems reviewed and negative unless documented below Review of systems (narrative): Patient is awake and alert is a good historian also has a friend with her who verifies certain details. , Constitutional Constitutional: Reports as per HPI, Reports fatigue and Reports weakness Eyes Eyes: Reports as per HPI ENT Ears, Nose, Mouth, and Throat: Reports as per HPI *Cardiovascular Cardiovascular: Reports as per HPI Comments: Denies chest pain when up but states she feels her heart flutter *Respiratory Respiratory: Reports as per HPI *Gastrointestinal Gastrointestinal: Reports as per HPI and Reports dyspepsia *Genitourinary Genitourinary: Reports as per HPI *Musculoskeletal Musculoskeletal: Reports as per HPI, Reports abnormal gait, Reports atrophy and Reports muscle weakness Comments: Left arm in sling Integumentary/Breasts Skin/Breast: Reports as per HPI Comments: History of left mastectomy *Neurologic Neurologic: Reports abnormal gait and Reports weakness Psychiatric Psychiatric: Reports as per HPI and Reports depression Endocrine Endocrine: Reports fatigue Comments: Patient's BMI 17 weight under 100 pounds Hematologic/Lymphatic Hematologic/Lymphatic: Reports as per HPI Allergic/Immunologic Allergic/Immunologic: Reports as per HPI Meds Home Medications and Allergies Home Medications ?Medication ?Instructions ?Recorded ?Confirmed ?Type alprazolam 1 mg tablet 0.5 mg PO QDAY anxiety 08/12/17 09/21/24 History aspirin 81 mg tablet,delayed 81 mg PO QDAY antiplatelet 08/12/17 09/21/24 History release (Adult Low Dose Aspirin) losartan 50 mg tablet 100 mg PO DAILY hypertension 11/24/18 09/21/24 History atorvastatin 10 mg tablet 10 mg PO QDAY hyperlipidemia #30 05/27/19 09/21/24 Rx tabs carvedilol 12.5 mg tablet 12.5 mg PO BID coronary artery 06/14/19 09/21/24 Rx disease #60 tabs alprazolam 1 mg tablet 0.5 mg PO HS sleep 01/14/23 09/21/24 History amlodipine 5 mg tablet 5 mg PO DAILY High blood pressure 01/14/23 09/21/24 History amoxicillin 500 mg capsule 500 mg PO TID Infection 01/14/23 09/21/24 History aspirin 81 mg tablet 81 mg PO DAILY heart health 01/14/23 09/21/24 History New Prescriptions to Start Prescriptions: Allergies Allergy/AdvReac Type Severity Reaction Status Date / Time Sulfa (Sulfonamide Allergy Severe S-SWELLS-OR Verified 06/30/23 10:04 Antibiotics) (SULFA AL/THROAT (SULFONAMIDE ANTIBIOTICS)) hydrochlorothiazide Allergy Verified 06/30/23 10:04 Exam Data for Last 24 hours Vital signs and Labs for Last 24 Hours: Temp Pulse Resp BP Pulse Ox O2 Del Method 98.2 F 71 20 121/71 100 Room Air 09/21/24 05:14 09/21/24 05:14 09/21/24 05:14 09/21/24 05:14 09/21/24 03:30 09/21/24 05:14 Laboratory Results - last 24 hr 09/21/24 03:58: WBC 13.3 H, RBC 3.51 L, Hgb 11.2 L, Hct 32.0 L, MCV 91.2, MCH 31.9 H, MCHC 35.0, RDW 11.5, Plt Count 229, MPV 8.7, Neut % (Auto) 80.3 H, Lymph % (Auto) 10.4, Patrick % (Auto) 7.7, Eos % (Auto) 0.6, Baso % (Auto) 0.5, Neut # (Auto) 10.7 H, Lymph # (Auto) 1.4, Patrick # (Auto) 1.0, Eos # (Auto) 0.1, Baso # (Auto) 0.1, Sodium 128 L, Potassium 3.7, Chloride 98, Carbon Dioxide 24, Anion Gap 9.7, BUN 13, Creatinine 0.50 L, Estimated Creat Clear 33, Estimated GFR 120, Est GFR ( Amer) 145, Glucose 129 H, Calcium 8.6, Total Bilirubin 0.5, AST 33, ALT 20, Alkaline Phosphatase 78, Troponin I < 0.01, Total Protein 6.5, Albumin 4.1, Globulin 2.4, Albumin/Globulin Ratio 1.7 I & O for Last 24 hours: Intake & Output 09/18/24 09/19/24 09/20/24 09/21/24 05:59 05:59 05:59 05:59 Weight 97 lb 0.3 oz Radiology Reports for the Last 24 Hours: Humeral head impacted fracture Constitutional Constitutional: mild distress, thin and chronically ill appearing *Routine HEENT Exam Head: Present normocephalic and atraumatic Eye: Present EOMI, PERRL and normal accommodation ENT: Present mucous membranes moist *Routine Neck Exam Neck: Present supple Comments: Noted per x-ray severe cervical spine degenerative disc disease Routine Chest/Breast/Axilla Exam Comments: No tenderness noted that there has been a left mastectomy *Routine Respiratory Exam Respiratory: Present CTA bilaterally, normal respiratory effort, able to speak in complete sentences and symmetric chest movement *Routine Cardiovascular Exam Cardiovascular: Present RRR, Normal S2, murmur and tachycardia *Routine Abdominal Exam Abdominal: Present soft and normoactive bowel sounds Comments: No abdominal tenderness noted *Routine Rectal Exam Rectal:: deferred *Routine Genitalia Exam Genitalia:: deferred *Routine Extremities Exam Comments: Left arm is in a sling but able to make a fist move her hand has sensation to the left hand, did not stand the patient to walker but she is able to move both hips knees and ankles Routine Back/Spine/Pelvis Exam Back/Spine: Present full ROM Comments: Did not stand the patient patient is able to move twist sit up in the bed and s hows no significant back discomfort *Routine Skin Exam Skin: Present intact, warm and normal turgor *Routine Neurological Exam Neurological: Present alert, oriented X3, CN II-XII intact, moving all extremities, vision grossly intact, hearing grossly intact and normal speech Comments: As noted move all extremities but left shoulder not move due to the known injury and being in a sling Routine Psychiatric Exam Psychiatric: Present normal affect, normal thought process, cooperative, good insight and good judgment H&P: Result Impressions 1. Fall with fracture to left humeral head., Requiring patient to be in a sling at present time may require surgery here the future 2. More than a year history of weakness with dizziness upon standing., Sometimes due to the dizziness having to use a walker. 3. Past medical history including hypothyroidism chronic hyponatremia positive CHASIDY labs in the past. Noting has not seen per my chart cardiology since 2018 Imaging and Cardiology Left shoulder: Status: image reviewed by me (Impacted left shoulder fracture) Assessment and Plan *Assessment and plan (1) Closed fracture of head of left humerus: Status: Acute Qualifiers: Encounter type: initial encounter Qualified Code(s): S42.292A - Other displaced fracture of upper end of left humerus, initial encounter for closed fracture Category: Medical Code(s): S42.292A - Other displaced fracture of upper end of left humerus, initial encounter for closed fracture (2) Fall: Status: Acute Qualifiers: Encounter type: initial encounter Qualified Code(s): W19.XXXA - Unspecified fall, initial encounter Category: Medical Code(s): W19.XXXA - Unspecified fall, initial encounter (3) Failure to thrive: Status: Acute Qualifiers: Failure to thrive age range: in adult Qualified Code(s): R62.7 - Adult failure to thrive Category: Medical (4) Chronic hyponatremia: Status: Acute Category: Medical Code(s): E87.1 - Hypo-osmolality and hyponatremia (5) Generalized weakness: Status: Acute Category: Medical Code(s): R53.1 - Weakness (6) Dizziness: Status: Acute Category: Medical Code(s): R42 - Dizziness and giddiness (7) Fatigue: Status: Chronic Qualifiers: Fatigue type: unspecified Qualified Code(s): R53.83 - Other fatigue Category: Medical Code(s): R53.83 - Other fatigue (8) Low weight for height: Status: Acute Category: Medical Code(s): R63.6 - Underweight (9) Hypothyroidism: Status: Acute Qualifiers: Hypothyroidism type: unspecified Qualified Code(s): E03.9 - Hypothyroidism, unspecified Category: Medical Code(s): E03.9 - Hypothyroidism, unspecified (10) Depressive disorder: Status: Chronic Category: Medical Code(s): F32.A - Depression, unspecified Plan 1. Will admit patient to the floor. Consult Dr. Navas to see if surgery would be required for this patient., Then would need to be able to evaluate if home care is appropriate versus rehabilitation. Patient is a fall risk at this time, 2. Chronic dizziness with weakness now progressing to where she is not able to ambulate without assistance or stand, will get echocardiogram to evaluate heart function. May need to consult cardiology. Will also do orthostatic blood pressure checks. 3. Chronic hyponatremia, chronic hypothyroidism, past history of positive CHASIDY workup. Very low body weight BMI in the 17. Will need to evaluate these to find out if this is part of her dizziness and weakness which has led to her fall.
--- NOTE | 2024-09-21 05:27 | PC.NURSE ---
Patient arrived to floor via stretcher from ED at 05:14.
[2024-09-21 06:46] LABS: Basophils # 0.1 K/mm3 (0-0.2); Basophils % 0.4 % (0.1-2.0); Eosinophils # 0.1 K/mm3 (0.0-0.4); Eosinophils % 0.4 % (0.1-12.0); Hematocrit 32.5 % (37.0-47.0); Hemoglobin 11.5 g/dL (12.2-16.2); Lymphocytes # 1.1 K/mm3 (0.7-4.5); Lymphocytes % 8.5 % (10-50); Mean Corpuscular HGB Conc 35.4 g/dL (31.8-35.4); Mean Corpuscular Hemoglobin 32.3 pg (27.0-31.2); Mean Corpuscular Volume 91.3 fl (81-99); Mean Platelet Volume 8.8 fl (7.4-10.4); Monocytes # 0.8 K/mm3 (0.1-1.0); Monocytes % 6.4 % (1.7-9.3); Neutrophils # 10.5 K/mm3 (1.8-7.8); Neutrophils % 83.9 % (37.0-80.0); Platelet Count 236 K/mm3 (142-424); Red Blood Count 3.56 M/mm3 (4.20-5.40); Red Cell Distribution Width 11.4 % (11.5-17.5); White Blood Count 12.5 K/mm3 (4.8-10.8)
[2024-09-21 06:50] LABS: Hepatitis C Ab Qual. W/ RFX NEGATIVE (Negative)
[2024-09-21 07:09] LABS: Chloride 96 mmol/L (98-107)
[2024-09-21 07:10] LABS: Potassium 3.5 mmoL/L (3.5-5.1); Sodium 127 mmol/L (136-145)
[2024-09-21 07:12] LABS: Anion Gap 11.5 mEq/L (5-15); Blood Urea Nitrogen 12 mg/dl (7-17); Carbon Dioxide 23 mmol/L (22.0-30.0); Creatinine Clearance Estimated 34 mL/min (50-200); Estimated Glomerular Filt Rate 120 ml/min (>60); GFR (African American) 145 ML/MIN (>60)
[2024-09-21 07:13] LABS: Alanine Aminotransferase 21 U/L (12-78); Albumin/Globulin Ratio 1.7 (1.1-1.8); Alkaline Phosphatase 77 U/L (38-126); Aspartate Amino Transferase 32 U/L (14-36); Bilirubin,Total 0.6 mg/dl (0.2-1.3); Calcium 8.4 mg/dl (8.4-10.2); Globulin 2.3 g/dL (1.3-3.2); Glucose 131 mg/dl (74-100); Magnesium 1.7 mg/dl (1.6-2.3); Total Protein,Serum 6.3 g/dl (6.3-8.2)
[2024-09-21] MEDS: KETOROLAC 30MG/ML VIAL 15 MG IV (07:44)
[2024-09-21 07:49] LABS: HIV Combo NEGATIVE (Negative)
[2024-09-21 07:50] LABS: Troponin I < 0.01 ng/ml (0.00-0.034)
[2024-09-21 08:33] LABS: Free Thyroxine Index 2.7 ug/dL (5.93-13.13); T4 (Thyroxine) 7.4 ug/dl (5.53-11.0); Triiodothryronine (T3) Uptake 36 % (23.5-40.5)
[2024-09-21] MEDS: IRBESARTAN 75MG TABLET 75 MG PO (08:46)
[2024-09-21] MEDS: MAGNESIUM SULFATE IN WATER 2 GM/50 ML PIGGYBACK IV ×2 (08:46→10:19)
[2024-09-21] MEDS: AMLODIPINE 5MG TABLET 5 MG PO (08:47)
[2024-09-21] MEDS: DOCUSATE SODIUM 100 MG CAPSULE PO (08:47)
[2024-09-21 09:17] LABS: Troponin I < 0.01 ng/ml (0.00-0.034)
--- NOTE | 2024-09-21 10:49 | HMH.PTEV ---
Physical Therapy Evaluation Rehab PT IP Evaluation Start: 09/21/24 05:00 Freq: ONCE Status: Active Protocol: Document 09/21/24 10:30 PHORNE (Rec: 09/21/24 10:49 PHORNE [id number]) Subjective/History History History 79 yowf who presents S/P fall at home with resulting L humeral head fx. She reports hx of dizziness for ~ 1 yr with insidious onset. She states, My doctor says it's because of my anxiety. She reports she lives alone, but her son has recently been staying with her. She reports 2 GABBY the home and she is generally independent with all mobility without an AD. Subjective Subjective Currently she endorses feeling dizzy at all times and in all positions. and pain in her L UE as expected. She does agree to OOB mobility assessment this am. New diagnosis of cancer in past 12 No months? Rehab PT IP Eval Objective Appearance Patient Behavior Appropriate Patient Orientation Person,Place,Time Difficulty following instructions none Speech Pattern Clear Ambulation Patient Able to Ambulate Yes Ambulation Observation IP General Gait Pattern Observation Narrow Based Gait Ambulation Distance (feet) 15 Ambulation Assistive Device None Ambulation Ability Contact Guard/Hand Hold Balance Ability to Arise Able, uses arms to help Sitting Balance Steady, safe Standing Balance Unsteady Dynamic Sitting Balance Ability Good Dynamic Standing Balance Ability Fair Transfers Bed Transfer Ability Minimal x 1 (25% assist) Chair Transfer Ability Minimal x 1 (25% assist) Sit to Stand Bed Transfer Ability Minimal x 1 (25% assist) Sit to Stand Chair Transfer Ability Minimal x 1 (25% assist) ROM LUE PT ROM Status ABN Abnormal ROM Comment NT due to fx Rehab PT IP prob,goals,plan Problems Date of Evaluation: 09/21/24 PT IP Problems Bed Mobility,Transfers,Gait, Safety Rehab Potential Rehab Potential Good Plan PT Intervention Plan Bed Mobility,Transfers,Gait, Self care,Safety,Therapeutic Exercise PT Plan Frequency Daily Duration LOS Discharge Goals Bed Transfer Ability Contact Guard/Hand Hold Sit to Stand Chair Transfer Ability Contact Guard/Hand Hold Ambulation Assistive Device None Ambulation Distance (feet) 30 Discharge Plan PT Discharge Plan Pt is currently most appropriate for rehab placement once medically stable as she has decreased balance and decreased ability to perform self care activities. Skilled therapy is indicate to improve transfers and ambulation ability in order to aid pt return to PLOF . She may be able to return home if all therapy goals are met and she is able to obtain 24 hr assist for her safety and balance issues at home. Eval Complexity Eval Charge Codes 24307 - High Complexity PHYSICIAN CERTIFICATION: I certify the specified therapy services for Renetta Dockery are required, authorized, and reviewed every 30 days.
[2024-09-21] MEDS: HYDROCODONE/APAP 5/325 MG TABLET 0.5 TAB PO (10:52)
--- NOTE | 2024-09-21 10:53 | HMH.OTEV ---
OT Inpatient Evaluation Rehab OT IP Evaluation Start: 09/21/24 08:06 Freq: ONCE Status: Active Protocol: [facility]24 [facility] (Rec: 09/21/24 10:53 [facility] [id number]) Rehab OT IP Assessment Subjective History Pt oriented x 3 on arrival. Pt agreeable to engage in therapy evaluation. Pt admitted on 09/21/24 due to fall with humeral head fx, continued weakness, and chronic dizziness. History and physical: This patient who now has her son living with her because she cannot drive any longer.. Has been able to walk but because of her chronic dizziness and weakness is having failure to thrive., Her weight has always been about 94 pounds to 97 pounds per the notes that I have.. She saw Dr. Coreas back in 2018 from the last note I have from him. Patient states she has not felt well for more than a year feeling weak anytime she moves being dizzy. Says it goes away when she is sitting down being still. Patient was up tonight as she feeds several feral cats. And fell landing on the left arm. With x-ray showing an impacted femoral head with an acromion process fracture. ER physician did consult Dr. Navas and he is aware of the patient. After talking with the ER provider and assessing the patient. Realized that the patient is now unable to stand without assistance. She would not be able to use a walker. So I feel we need to admit her will also get a echocardiogram to evaluate heart function. As none are in her record.. Also to consult Dr. Navas question whether surgery is required for this left humeral head fracture Patient also noted that her labs are fairly well but she has chronic hyponatremia. mild . Also noting past history of having positive CHASIDY workup, also on thyroid medication.. Patient sees Dr. Agarwal so I do not have any recent notes to be able to evaluate at this time. Patient notes that she sometimes takes alprazolam for her anxiety and feels that she is depressed.. She states when she lies down she is able to sleep but on getting up she feels her heart fluttering and she becomes dizzy and this has been going on for more than 14 months.. Patient also noted with significant cervical spine degeneration at C/3 to C/6. Also will involve case management physical therapy to evaluate whether patient would be able to recover at home or would need rehabilitation facility. The patient has a neighbor with her that she seems to be quite friendly and familiar with her. The neighbor said she would let her son who is at the house know what is going on Subjective Pt reports her son has been living with her recently due to continued decline with overall functional ability. Pt claims she is still independent with ADLs, but requires assistance with IADLs . Pt also reports constant dizziness for ~1 year. Pt normally does no use a rolling walker during functional transfers, but claims she was still able to walk until recently. Objective Patient Orientation Person,Place,Birthday Right Upper Extremity Gross ROM WFL Left Upper Extremity Gross ROM Sev Limitation >75% Bed Mobility bed mobility-scooting,bed mobility - supine/sit Assist Level Minimal x 2 (25% assist) Transfer Training Sit/Stand Transfer Assist Level Minimal x 1 (25% assist) Chair Transfer Ability Minimal x 1 (25% assist) Chair Transfer Technique Sit to/from Ambulatory Rehab OT IP prob,goals,plan Problems Date of Evaluation: 09/21/24 OT IP Problems Bed Mobility,Transfers,Balance ,Self care,Safety Rehab Potential Rehab Potential Good Plan OT intervention Plan Bed Mobility,Transfers,Balance ,Self care,Safety,Therapeutic Exercise OT Plan Frequency Daily Duration LOS Discharge Goals Bed Mobility Ability Standby Assistance Sit to Stand Chair Transfer Ability Contact Guard/Hand Hold Chair Transfer Ability Contact Guard/Hand Hold Chair Transfer Technique Sit to/from Ambulatory Feeding Ability Assist with Tray Set Up Lower Body Dressing Ability Maximum Assistance Upper Body Dressing Ability Moderate Assistance Bathing Ability Maximum Assistance Performing Toilet Hygiene Ability Moderate Assistance Overall Commode/Toilet Transfer Ability Contact Guard Commode/Toilet Transfer Technique Sit to/from Ambulatory Discharge Plan OT Discharge Plan Pt will continue to be seen for OT services while at [facility]. Pt would benefit most from short term rehab at [facility] following hospital stay. Continued skilled therapy is important in order for patient to improve strength, safety, endurance, ADL independence, and functional transfers to reach OF. Eval Complexity Eval Charge Codes 94421 - Moderate Complexity PHYSICIAN CERTIFICATION: I certify the specified therapy services for Renetta Sarkis are required, authorized, and reviewed every 30 days.
--- NOTE | 2024-09-21 11:18 | SW/DCPLANNER ---
Addendum entered by Opal Blackman 09/22/24 08:13: Per Uma w/ [facility] this patient has been accepted for services. Addendum entered by Opal Blackman 09/21/24 13:28: I spoke w/ patient and her neighbor (Tita) that assist son w/ caring for patient at home. Patient and Tita have decided that patient will return home w/ / care and home health services. Patient does not have a preferred home health agency. Once patient is medically stable for discharge I will fax patient information/order to [facility] due to insurance. Per patient will discharge home this afternoon. Original Note: I spoke w/ this patient regarding plans once medically stable for discharge. PT/OT evaluated patient and SNF or 03/03 care w/ home health was recommended. Patient is agreeable for information to be faxed to [facility] at this time. Patient voiced that she is still unsure about placement but willing to see if [facility] would accept. Patient also voiced that if [facility] is unable to accept she would prefer to return home w/ her son to assist in care and home health services. Patient information will be faxed to [facility] this AM. Per patient is medically stable for discharge. I will continue to follow up.
--- NOTE | 2024-09-21 11:36 | CARE MANAGER ---
Current Medications Acetaminophen (Acetaminophen 325mg Tab) 650 mg PO Q4HP PRN PRN Reason: Fever or Mild Pain (1-3) Stop: 10/21/24 04:59 Hydrocodone Bitart/Acetaminophen (Hydrocodone/Apap 5/325 Mg Tablet) 0.5 tab PO Q6HP PRN PRN Reason: Moderate to Severe Pain (4-10) Stop: 10/21/24 10:37 Last Admin: 09/21/24 10:52 Dose: 0.5 tab Alprazolam (Alprazolam 0.25mg Tablet) 0.25 mg PO BIDP PRN PRN Reason: Anxiety Stop: 10/21/24 05:07 Amlodipine Besylate (Amlodipine 5mg Tablet) 5 mg PO DAILY [facility] Stop: 10/21/24 08:59 Last Admin: 09/21/24 08:47 Dose: 5 mg Carvedilol (Carvedilol 12.5mg Tablet) 12.5 mg PO HS [facility] Stop: 10/21/24 20:59 Docusate Sodium (Docusate Sodium 100 Mg Capsule) 100 mg PO DAILY [facility] Stop: 10/21/24 08:59 Last Admin: 09/21/24 08:47 Dose: 100 mg Irbesartan (Irbesartan 75mg Tablet) 75 mg PO DAILY [facility] Stop: 10/21/24 08:59 Last Admin: 09/21/24 08:46 Dose: 75 mg Ketorolac Tromethamine (Ketorolac 30mg/Ml Vial) 15 mg IV Q6HP PRN PRN Reason: Moderate Pain (4-6) Stop: 09/26/24 04:59 Last Admin: 09/21/24 07:44 Dose: 15 mg Ketorolac Tromethamine (Ketorolac 30mg/Ml Vial) 15 mg IV Q6HP PRN PRN Reason: Breakthru Moderate Pain (4-6) Stop: 09/26/24 05:07 Levothyroxine Sodium (Levothyroxine 50mcg (0.05mg) Tab) [facility] Stop: 10/22/24 06:59 Ondansetron HCl (Ondansetron 4mg/2ml Vial) 4 mg IV Q8HP PRN PRN Reason: Nausea Stop: 10/21/24 04:59 Pantoprazole Sodium (Pantoprazole 40mg Tablet) 40 mg PO HS [facility] Stop: 10/21/24 20:59
[2024-09-21 11:55] LABS: Microscopic, Urine URINE MICROSCOPIC (MICROSCOPIC)
[2024-09-21 11:57] LABS: Appearance,Urine CLOUDY (Clear); Bilirubin,Urine Negative (Negative); Blood, Urine Negative (Negative); Color,Urine YELLOW (Yellow); Glucose,Urine (UA) Negative (Negative); Ketones,Urine 1+ (Negative); Leukocyte Esterase,Urine Negative (Negative); Nitrate,Urine Negative (Negative); Protein,Urine Negative (Negative); Specific Gravity, Urine 1.015 (1.005-1.030); Urobilinogen,Urine 0.2 EU/dl (0.2)
[2024-09-21 12:10] LABS: Amorphous Sediment,Urine 4+ /lpf; Bacteria,Urine 1+ /lpf; RBC,Urine Occasional #/hpf (0-3); Squamous Epithelial Cell,Urine Occasional #/hpf (0-5); WBC,Urine Occasional #/hpf (0-3)
[2024-09-21 12:16] LABS: Thyroid Stimulating Hormone 4.86 uIU/mL (0.465-4.68)
[2024-09-21 13:45] LABS: Adenovirus,PCR Not Detected (NotDetected); Bordetella Pertussis Not Detected (NotDetected); Chlamydophila Pneumoniae, PCR Not Detected (NotDetected); Coronavirus 19, PCR Not Detected (NotDetected); Coronavirus 229E Not Detected (NotDetected); Coronavirus NL63 Not Detected (NotDetected); Coronavirus OC43 Not Detected (NotDetected); Coronovirus HKU1,PCR Not Detected (NotDetected); Human Metapneumovirus Not Detected (NotDetected); Influenza A, PCR Not Detected (NotDetected); Influenza AH1, 2009 Not Detected (NotDetected); Influenza AH1, PCR Not Detected (NotDetected); Influenza AH3,PCR Not Detected (NotDetected); Influenza B, PCR Not Detected (NotDetected); Mycoplasma Pneumoniae, PCR Not Detected (NotDetected); Parainfluenza 1, PCR Not Detected (NotDetected); Parainfluenza 2, PCR Not Detected (NotDetected); Parainfluenza 3, PCR Not Detected (NotDetected); Parainfluenza 4, PCR Not Detected (NotDetected); Respiratory Syncytial Virus Not Detected (NotDetected); Rhinovirus/Enterovirus Not Detected (NotDetected)
[2024-09-21 13:53] LABS: Free T4 (Free Thyroxine) 0.99 ng/dl (0.78-2.19)
--- NOTE | 2024-09-21 14:11 | P.DS_ITS ---
General Admission date:: 09/21/24 HPI HPI HPI: This patient who now has her son living with her because she cannot drive any longer.. Has been able to walk but because of her chronic dizziness and weakness is having failure to thrive., Her weight has always been about 94 pounds to 97 pounds per the notes that I have.. She saw Dr. Coreas back in 2018 from the last note I have from him. Patient states she has not felt well for more than a year feeling weak anytime she moves being dizzy. Says it goes away when she is sitting down being still. Patient was up tonight as she feeds several feral cats. And fell landing on the left arm. With x-ray showing an impacted femoral head with an acromion process fracture. ER physician did consult Dr. Navas and he is aware of the patient. After talking with the ER provider and assessing the patient. Realized that the patient is now unable to stand without assistance. She would not be able to use a walker. So I feel we need to admit her will also get a echocardiogram to eval uate heart function. As none are in her record.. Also to consult Dr. Navas question whether surgery is required for this left humeral head fracture Patient also noted that her labs are fairly well but she has chronic hyponatremia. mild. Also noting past history of having positive CHASIDY workup, also on thyroid medication.. Patient sees Dr. Agarwal so I do not have any recent notes to be able to evaluate at this time. Patient notes that she sometimes takes alprazolam for her anxiety and feels that she is depressed.. She states when she lies down she is able to sleep but on getting up she feels her heart fluttering and she becomes dizzy and this has been going on for more than 14 months.. Patient also noted with significant cervical spine degeneration at C/3 to C/6. Also will involve case management physical therapy to evaluate whether patient would be able to recover at home or would need rehabilitation facility. The patient has a neighbor with her that she seems to be quite friendly and familiar with her. The neighbor said she would let her son who is at the house know what is going on. Hospital Course Hospital Course Hospital Course: Renetta Dockery is a 79-year-old female with medical history significant for hypertension, hypothyroidism who presents after falling at home on left shoulder trying to feed her pets and was admitted for an episode of hypotension, nausea in the ED. #Hypotension, nausea #Vasovagal presyncope #History of hypertension ? Symptoms most suggestive of side effects from [place] and pain. No further episodes during admission. ? Patient advised to hold home amlodipine, carvedilol until close follow-up with PCP. BP stable at this time. #Left humeral fracture with subluxation ? Orthopedic surgery consulted, recommended sling and close follow-up in the clinic. ? Referred to orthopedic surgery to be followed up within 1 week. ? PT/OT consulted, recommended SNF or home with 03/03 care. Patient elected to go home with daughter with home health. ? Discharged with naproxen, avoiding opioids given side effects as above. #Hypothyroidism ? TSH elevated to 4.86, decreased to levothyroxine from 75 to 50 mcg. ? Will need repeat outpatient TFTs in 4 to 6 weeks with PCP. #Acute on chronic hyponatremia ? Initial sodium 127, will follow-up on serum/urine osmolality. ? Discharged with sodium chloride 1000 mg twice daily for 7 days. Exam Data for Last 24 hours Vital signs and Labs for Last 24 Hours: Temp Pulse Resp BP Pulse Ox O2 Del Method 98.0 F 69 20 127/57 L 99 Room Air 09/21/24 12:00 09/21/24 12:00 09/21/24 12:00 09/21/24 12:00 09/21/24 12:00 09/21/24 13:00 Laboratory Results - last 24 hr 09/21/24 03:58: WBC 13.3 H, RBC 3.51 L, Hgb 11.2 L, Hct 32.0 L, MCV 91.2, MCH 31.9 H, MCHC 35.0, RDW 11.5, Plt Count 229, MPV 8.7, Neut % (Auto) 80.3 H, Lymph % (Auto) 10.4, [place] % (Auto) 7.7, Eos % (Auto) 0.6, Baso % (Auto) 0.5, Neut # (Auto) 10.7 H, Lymph # (Auto) 1.4, [place] # (Auto) 1.0, Eos # (Auto) 0.1, Baso # (Auto) 0.1, Sodium 128 L, Potassium 3.7, Chloride 98, Carbon Dioxide 24, Anion Gap 9.7, BUN 13, Creatinine 0.50 L, Estimated Creat Clear 33, Estimated GFR 120, Est GFR ( Amer) 145, Glucose 129 H, Calcium 8.6, Total Bilirubin 0.5, AST 33, ALT 20, Alkaline Phosphatase 78, Troponin I < 0.01, Total Protein 6.5, Albumin 4.1, Globulin 2.4, Albumin/Globulin Ratio 1.7, HCV Ab EDUARDO w/Rflx PCR Qn Negative, HIV Ag/Ab Combo Qual Negative 09/21/24 05:52: WBC 12.5 H, RBC 3.56 L, Hgb 11.5 L, Hct 32.5 L, MCV 91.3, MCH 32.3 H, MCHC 35.4, RDW 11.4 L, Plt Count 236, MPV 8.8, Neut % (Auto) 83.9 H, Lymph % (Auto) 8.5 L, [place] % (Auto) 6.4, Eos % (Auto) 0.4, Baso % (Auto) 0.4, Neut # (Auto) 10.5 H, Lymph # (Auto) 1.1, [place] # (Auto) 0.8, Eos # (Auto) 0.1, Baso # (Auto) 0.1, Sodium 127 L, Potassium 3.5, Chloride 96 L, Carbon Dioxide 23, Anion Gap 11.5, BUN 12, Creatinine 0.50 L, Estimated Creat Clear 34, Estimated GFR 120, Est GFR ( Amer) 145, Glucose 131 H, Calcium 8.4, Magnesium 1.7, Total Bilirubin 0.6, AST 32, ALT 21, Alkaline Phosphatase 77, Troponin I < 0.01, Total Protein 6.3, Albumin 4.0, Globulin 2.3, Albumin/Globulin Ratio 1.7, TSH 4.86 H, Free T4 0.99, Free T4 Index 2.7 L, Thyroxine (T4) 7.4, T3 Uptake 36 09/21/24 08:45: Troponin I < 0.01 09/21/24 11:51: Urine Color Yellow, Urine Appearance Cloudy, Urine pH 8.0, Ur Specific [place] 1.015, Urine Protein Negative, Urine Glucose (UA) Negative, Urine Ketones 1+, Urine Blood Negative, Urine Nitrate Negative, Urine Bilirubin Negative, Urine Urobilinogen 0.2, Ur Leukocyte Esterase Negative, Urine RBC Occasional, Urine WBC Occasional, Ur Squamous Epith Cells Occasional, Amorphous Sediment 4+, Urine Bacteria 1+ I & O for Last 24 hours: Intake & Output 09/18/24 09/19/24 09/20/24 09/21/24 23:59 23:59 23:59 23:59 Output Total 400 / 400 Balance -400 / -400 Weight 45.813 kg Constitutional Constitutional: no acute distress *Routine HEENT Exam Head: Present normocephalic Eye: Present EOMI and PERRL ENT: Present mucous membranes moist *Routine Neck Exam Neck: Present supple; Absent lymphadenopathy *Routine Respiratory Exam Respiratory: Present CTA bilaterally *Routine Cardiovascular Exam Cardiovascular: Present RRR *Routine Abdominal Exam Abdominal: Present soft and normoactive bowel sounds; Absent tenderness *Routine Extremities Exam Extremities: Absent cyanosis, clubbing or edema *Routine Skin Exam Skin: Present warm; Absent rash *Routine Neurological Exam Neurological: Present alert and oriented X3 Results Data Completed and Pending Labs on day of discharge: Labs from last 24 hours 09/21/24 09/21/24 09/21/24 11:51 08:45 05:52 WBC 12.5 H RBC 3.56 L Hgb 11.5 L Hct 32.5 L MCV 91.3 MCH 32.3 H MCHC 35.4 RDW 11.4 L Plt Count 236 MPV 8.8 Neut % (Auto) 83.9 H Lymph % (Auto) 8.5 L [place] % (Auto) 6.4 Eos % (Auto) 0.4 Baso % (Auto) 0.4 Neut # (Auto) 10.5 H Lymph # (Auto) 1.1 [place] # (Auto) 0.8 Eos # (Auto) 0.1 Baso # (Auto) 0.1 Sodium 127 L Potassium 3.5 Chloride 96 L Carbon Dioxide 23 Anion Gap 11.5 BUN 12 Creatinine 0.50 L Estimated Creat Clear 34 Estimated GFR 120 Est GFR ( Amer) 145 Glucose 131 H Calcium 8.4 Magnesium 1.7 Total Bilirubin 0.6 AST 32 ALT 21 Alkaline Phosphatase 77 Troponin I < 0.01 < 0.01 Total Protein 6.3 Albumin 4.0 Globulin 2.3 Albumin/Globulin Ratio 1.7 TSH 4.86 H Free T4 0.99 Free T4 Index 2.7 L Thyroxine (T4) 7.4 T3 Uptake 36 Urine Color Yellow Urine Appearance Cloudy Urine pH 8.0 Ur Specific [place] 1.015 Urine Protein Negative Urine Glucose (UA) Negative Urine Ketones 1+ Urine Blood Negative Urine Nitrate Negative Urine Bilirubin Negative Urine Urobilinogen 0.2 Ur Leukocyte Esterase Negative Urine RBC Occasional Urine WBC Occasional Ur Squamous Epith Cells Occasional Amorphous Sediment 4+ Urine Bacteria 1+ HCV Ab EDUARDO w/Rflx PCR Qn HIV Ag/Ab Combo Qual 09/21/24 03:58 WBC 13.3 H RBC 3.51 L Hgb 11.2 L Hct 32.0 L MCV 91.2 MCH 31.9 H MCHC 35.0 RDW 11.5 Plt Count 229 MPV 8.7 Neut % (Auto) 80.3 H Lymph % (Auto) 10.4 [place] % (Auto) 7.7 Eos % (Auto) 0.6 Baso % (Auto) 0.5 Neut # (Auto) 10.7 H Lymph # (Auto) 1.4 [place] # (Auto) 1.0 Eos # (Auto) 0.1 Baso # (Auto) 0.1 Sodium 128 L Potassium 3.7 Chloride 98 Carbon Dioxide 24 Anion Gap 9.7 BUN 13 Creatinine 0.50 L Estimated Creat Clear 33 Estimated GFR 120 Est GFR ( Amer) 145 Glucose 129 H Calcium 8.6 Magnesium Total Bilirubin 0.5 AST 33 ALT 20 Alkaline Phosphatase 78 Troponin I < 0.01 Total Protein 6.5 Albumin 4.1 Globulin 2.4 Albumin/Globulin Ratio 1.7 TSH Free T4 Free T4 Index Thyroxine (T4) T3 Uptake Urine Color Urine Appearance Urine pH Ur Specific [place] Urine Protein Urine Glucose (UA) Urine Ketones Urine Blood Urine Nitrate Urine Bilirubin Urine Urobilinogen Ur Leukocyte Esterase Urine RBC Urine WBC Ur Squamous Epith Cells Amorphous Sediment Urine Bacteria HCV Ab EDUARDO w/Rflx PCR Qn Negative HIV Ag/Ab Combo Qual Negative DS: Diagnosis Discharge Diagnosis (1) Closed fracture of head of left humerus: Status: Acute Code(s): S42.292A - Other displaced fracture of upper end of left humerus, initial encounter for closed fracture Qualifiers: Encounter type: initial encounter Qualified Code(s): S42.292A - Other displaced fracture of upper end of left humerus, initial encounter for closed fracture (2) Fall: Status: Acute Code(s): W19.XXXA - Unspecified fall, initial encounter Qualifiers: Encounter type: initial encounter Qualified Code(s): W19.XXXA - Unspecified fall, initial encounter (3) Failure to thrive: Status: Acute Qualifiers: Failure to thrive age range: in adult Qualified Code(s): R62.7 - Adult failure to thrive (4) Chronic hyponatremia: Status: Acute Code(s): E87.1 - Hypo-osmolality and hyponatremia (5) Generalized weakness: Status: Acute Code(s): R53.1 - Weakness (6) Dizziness: Status: Acute Code(s): R42 - Dizziness and giddiness (7) Fatigue: Status: Chronic Code(s): R53.83 - Other fatigue Qualifiers: Fatigue type: unspecified Qualified Code(s): R53.83 - Other fatigue (8) Low weight for height: Status: Acute Code(s): R63.6 - Underweight (9) Hypothyroidism: Status: Acute Code(s): E03.9 - Hypothyroidism, unspecified Qualifiers: Hypothyroidism type: unspecified Qualified Code(s): E03.9 - Hypothyroidism, unspecified (10) Depressive disorder: Status: Chronic Code(s): F32.A - Depression, unspecified Meds Home Medications and Allergies Home Medications ?Medication ?Instructions ?Recorded ?Confirmed ?Type aspirin 81 mg tablet,delayed 81 mg PO DAILY 08/12/17 09/28/24 History release (Adult Low Dose Aspirin) alprazolam 1 mg tablet 0.5 mg PO HSP PRN Sleep 01/14/23 09/28/24 History amlodipine 5 mg tablet 5 mg PO DAILY 01/14/23 09/28/24 History atorvastatin 10 mg tablet 10 mg PO HS 09/21/24 09/28/24 History carvedilol 12.5 mg tablet 12.5 mg PO HS 09/21/24 09/28/24 History levothyroxine 50 mcg tablet 75 mcg (1.5 x 50 mcg) PO DAILY 30 09/21/24 09/28/24 Rx (Synthroid) days #45 tabs naproxen 375 mg tablet 375 mg PO BID PRN pain #14 tabs 09/21/24 09/28/24 Rx sodium chloride 1,000 mg soluble 1,000 mg PO DAILY 14 days #14 tabs 09/21/24 09/28/24 Rx tablet New Prescriptions to Start Prescriptions: levothyroxine [Synthroid] TysonYannick naproxen Shilpaevita,Yannick sodium chloride Yannick Mehta Allergies Allergy/AdvReac Type Severity Reaction Status Date / Time Sulfa (Sulfonamide Allergy Severe S-SWELLS-OR Verified 09/28/24 14:38 Antibiotics) (SULFA AL/THROAT (SULFONAMIDE ANTIBIOTICS)) hydrochlorothiazide Allergy Verified 09/28/24 14:38 Discharge Plan Disposition Patient Disposition: Home Health Service Condition: Fair Discharge Order Discharge Orders: Discharge Order (Routine); Ordered 09/21/24 Ordered By: Yannick Mehta Follow up Plan Follow up with: Karel Navas DO [Staff Physician] - 09/28/24 2:00 pm Liudmila Marvin APRN [Primary Care Provider] - 09/27/24 11:30 am Prescriptions/Medication Reconciliation: New sodium chloride 1,000 mg Tablet,Soluble 1,000 mg PO DAILY 14 Days Qty: 14 0RF naproxen 375 mg tablet 375 mg PO BID PRN (Reason: pain) Qty: 14 0RF Continued aspirin [Adult Low Dose Aspirin] 81 mg tablet,delayed release (DR/EC) 81 mg PO DAILY atorvastatin 10 mg tablet 10 mg PO HS alprazolam 1 mg tablet 0.5 mg PO HSP PRN (Reason: Sleep) Patient Comments: TAKE 1/2 OR 1 TABLET BY MOUTH EVERY NIGHT AT BEDTIME NEEDED FOR INSOMNIA Changed levothyroxine [Synthroid] 50 mcg tablet 75 mcg PO DAILY 30 Days Qty: 45 0RF Held carvedilol 12.5 mg tablet 12.5 mg PO HS Hold Instructions: Resume on 10/05/24. Please hold this medication as your blood pressures were soft during admission. Talk to your PCP about restarting this medication. Patient Comments: TAKE ONE TABLET BY MOUTH EVERY EVENING amlodipine 5 mg tablet 5 mg PO DAILY Hold Instructions: Resume on 10/05/24. Please hold this medication as your blood pressures were soft during admission. Talk to your PCP about restarting this medication. Patient Comments: TAKE ONE TABLET BY MOUTH ONCE DAILY Problem Reconciliation Problems Reviewed?: Yes Patient Discharge Instructions Patient Instructions: Combating Dizziness in Older Adults, How to Prevent Falls Print Language: Ukrainian Providers Primary Care Provider: Liudmila Marvin Admit Provider: Rasheed De La Cruz Attending Provider: Rasheed De La Cruz
--- NOTE | 2024-09-22 10:23 | SW/DCPLANNER ---
Spoke with patient on the phone. Patient stated that she is doing well still having pain in her arm. Patient stated that she is aware of her upcoming appointments. Patient stated that she was able to get her medicine picked up from clinic pharmacy. Patient stated that she has no concerns or questions at this time. Nataliia Pantoja
[2024-09-22 23:08] LABS: Osmolality, Urine 383 mOsmol/kg (.)
== END 2024-09-21 15:14 | disposition home health service (06) ==
LOC: ER 04:41 → 2ND 05:10
PROVIDERS: Nurse Practitioner Family; Student in an Organized Health Care Education/Training Program; Admitting Provider Internal Medicine Adolescent Medicine; Emergency Provider Emergency Medicine; PCP Nurse Practitioner Family; Visit Provider Internal Medicine Adolescent Medicine
DX: S42.292A Other displaced fracture of upper end of left humerus, initial encounter for closed fracture (principal); R62.7 Adult failure to thrive; E87.1 Hypo-osmolality and hyponatremia; R53.1 Weakness; R42 Dizziness and giddiness; R53.83 Other fatigue; R63.6 Underweight; E03.9 Hypothyroidism, unspecified; F32.A Depression, unspecified; Z79.890 Hormone replacement therapy; Z79.899 Other long term (current) drug therapy; Z68.1 Body mass index [BMI] 19.9 or less, adult; W01.0XXA Fall on same level from slipping, tripping and stumbling without subsequent striking against object, initial encounter; Y92.019 Unspecified place in single-family (private) house as the place of occurrence of the external cause
CPT/HCPCS: 36415; 70450; 71045; 72125; 73030; 73060; 73200; 80053; 81001; 83735; 83930; 83935; 84436; 84439; 84443; 84479; 84484; 85025; 86803; 87389; 87633; 93005; 93306; 93325; 97163; 97166; 99285; G0378; J1885; J3475; J7030; Q0162

== ENCOUNTER 2024-10-19 13:27 | Outpatient (CLI) | payer MEDICARE, SELFPAY ==
--- NOTE | 2024-10-19 13:32 | XR_ITS ---
FINAL REPORT TECHNIQUE: Left humerus 2 views CLINICAL HISTORY: left humerus fx COMPARISON: Left shoulder 09/21/2024 FINDINGS: LEFT HUMERUS: 2 views of the left humerus were obtained. There is an impacted fracture of the surgical neck of the proximal humerus. The widening of the subacromial space noted on the prior exam has improved, that may result from a decrease in size of a left shoulder effusion. No new bony abnormalities are identified. The remainder of the humerus is unremarkable in appearance. IMPRESSION: Impacted fracture of the surgical neck of the proximal humerus as described. Reviewed, Interpreted and Dictated by Daniel Whyte MD Transcribed by Lucinda Greene Authenticated and [facility]
--- NOTE | 2024-10-19 13:32 | XR_ITS ---
FINAL REPORT TECHNIQUE: Left shoulder 3 views CLINICAL HISTORY: Left Shoulder pain COMPARISON: 09/21/2024 FINDINGS: LEFT SHOULDER: 3 images of the left shoulder were obtained. The impacted fracture of the surgical neck of the proximal humerus remains present. There widening of the subacromial space has decreased somewhat since the prior exam, likely secondary to an improving joint effusion. There is no soft tissue abnormality identified. IMPRESSION: Impacted fracture surgical neck of the proximal humerus, not significantly changed since the prior exam of 09/21/2024. Reviewed, Interpreted and Dictated by Daniel Whyte MD Transcribed by Lucinda Greene Authenticated and [facility]
== END 2024-10-19 23:59 | disposition home or self-care (01) ==
LOC: RAD 13:29
PROVIDERS: PCP Internal Medicine Adolescent Medicine; Visit Provider Orthopaedic Surgery
DX: M25.512 Pain in left shoulder (principal); S42.292A Other displaced fracture of upper end of left humerus, initial encounter for closed fracture
CPT/HCPCS: 73030; 73060

== ENCOUNTER 2024-10-25 19:06 | Emergency (ER) | payer MEDICARE, SELFPAY ==
[2024-10-25 20:24] VITALS: BP 182/87; PULSE 81; RESP 18; TEMP 36.9; O2SAT 100; BMI 18.1
--- NOTE | 2024-10-25 20:33 | ED_ITS ---
Discharge Plan Disposition Patient Disposition: Home, Self-Care Prescriptions Prescriptions: New ondansetron 4 mg tablet,disintegrating 4 mg PO Q6H PRN (Reason: nausea and vomiting) 5 Days Qty: 20 0RF No Action aspirin [Adult Low Dose Aspirin] 81 mg tablet,delayed release (DR/EC) 81 mg PO DAILY carvedilol 12.5 mg tablet 12.5 mg PO HS Patient Comments: TAKE ONE TABLET BY MOUTH EVERY EVENING atorvastatin 10 mg tablet 10 mg PO HS sodium chloride 1,000 mg Tablet,Soluble 1,000 mg PO DAILY 14 Days Qty: 14 0RF naproxen 375 mg tablet 375 mg PO BID PRN (Reason: pain) Qty: 14 0RF levothyroxine [Synthroid] 50 mcg tablet 75 mcg PO DAILY 30 Days Qty: 45 0RF alprazolam 1 mg tablet 0.5 mg PO HSP PRN (Reason: Sleep) Patient Comments: TAKE 1/2 OR 1 TABLET BY MOUTH EVERY NIGHT AT BEDTIME NEEDED FOR INSOMNIA amlodipine 5 mg tablet 5 mg PO DAILY Patient Comments: TAKE ONE TABLET BY MOUTH ONCE DAILY Referrals Follow up/Referrals: Hosea Johnson MD [Primary Care Provider] - See instructions Clinical Impressions Clinical Impression: Malaise, Dehydration, Anxiety Print Language Print Language: Lithuanian Discharge ED Provider: Bailey Caraballo General Adult HPI General Chief complaint: Weakness Stated complaint: Dizziness,nausea,no appitite,FAULKNER,stomach ache Time Seen by Provider: 10/25/24 20:33 Mode of Arrival: Ambulatory Source of Information: Patient Description of Symptoms (Recalled from ER Triage Doc. by RN): Pt presents to ED for weakness, dizziness, nausea & headache. Pt states she hasn't felt well for a couple of weeks but today it's worse. Pt states she has a headache and rates that 5/10. Pt states she just feels bad. History of Present Illness HPI narrative: Patient is a 79-year-old presented today with multiple generalized complaints. States she feels dizzy generalized weakness some nausea some headache and some abdominal burning. It has been going on for a few weeks but worsened over the last several days. Denies any severe pain at the moment. Overall just feels malaise and nothing specific. Related Data Home Medications ?Medication ?Instructions ?Recorded ?Confirmed aspirin 81 mg tablet,delayed 81 mg PO DAILY 08/12/17 10/19/24 release (Adult Low Dose Aspirin) alprazolam 1 mg tablet 0.5 mg PO HSP PRN Sleep 01/14/23 10/19/24 amlodipine 5 mg tablet 5 mg PO DAILY 01/14/23 10/19/24 atorvastatin 10 mg tablet 10 mg PO HS 09/21/24 10/19/24 carvedilol 12.5 mg tablet 12.5 mg PO HS 09/21/24 10/19/24 Previous Rx's ?Medication ?Instructions ?Recorded levothyroxine 50 mcg tablet 75 mcg (1.5 x 50 mcg) PO DAILY 30 09/21/24 (Synthroid) days #45 tabs naproxen 375 mg tablet 375 mg PO BID PRN pain #14 tabs 09/21/24 sodium chloride 1,000 mg soluble 1,000 mg PO DAILY 14 days #14 tabs 09/21/24 tablet ondansetron 4 mg disintegrating 4 mg PO Q6H PRN nausea and 10/25/24 tablet vomiting 5 days #20 tabs Allergies Allergy/AdvReac Type Severity Reaction Status Date / Time Sulfa (Sulfonamide Allergy Severe S-SWELLS-OR Verified 10/19/24 14:00 Antibiotics) (SULFA AL/THROAT (SULFONAMIDE ANTIBIOTICS)) hydrochlorothiazide Allergy Verified 10/19/24 14:00 [facility] Disclaimer: The information contained in this section may have been updated after the patient was seen, as this information can be updated by other users. Medical History Generalized weakness Fall Hypokalemia General weakness Weakness Dizziness Knee pain Epigastric pain Vertigo Dyspepsia Peripheral vertigo Chest pain Dyspnea Fatigue Positive titer for Anaplasma species Hypothyroidism Aberrant thyroid gland Aberrant thyroid tissue Anxiety Breast cancer patient diagnosed in 2001, had left side masectomy. Limb alert L side. Social History Smoking Status: Unknown if ever smoked alcohol intake: never substance use type: denies use current occupational status: other Travel in the last 8 weeks: None Have you lived/traveled outside [place] in past 30 days?: No Contact w/someone who lives/traveled outside US past 30 days?: No Exposure to someone with infectious disease in past 14 days?: No Do you have a fever (greater than 100.4 F or 38 C)?: No Have you tested positive for COVID-19: No Exposed to someone with COVID-19 in past 14 days?: No Do you have a sore throat?: Yes Do you have a cough?: Yes Do you have any weakness?: Yes Do you have any diarrhea?: Yes Are you experiencing any unusual bleeding?: No Do you have any muscle aches/pain?: Yes Do you have any abdominal pain?: Yes Are you experiencing loss of taste or smell?: Yes Other Medical History Have you received the Flu Vaccine for this season: No Have you received the Pneumonia Vaccine: No ROS Obtained: Yes All systems reviewed & no additional complaints except as documented Physical Exam General General appearance: alert and in no apparent distress Respiratory Respiratory exam: Present normal lung sounds bilaterally; Absent respiratory distress Cardiovascular Cardiovascular exam: Present regular rate and normal rhythm Abdominal Exam Abdominal exam: Present soft; Absent distention or tenderness Extremities Exam Extremities exam: Present other (Left upper extremity is in a sling from a recent fracture) Neurological Exam Neurological exam: Present alert and oriented X3 Medical Decision Making Medical Records Screening: Per USPSTF and CDC recommendations, given the prevalence of disease in our region, it is our hospital?s policy to screen for HIV and viral Hepatitis for all patients aged 18 and over and those with ongoing risk factors. Isidoro Inquiry Pt receiving controlled substance: No Vital Signs: 10/25/24 20:24 Temperature 98.5 F Temperature Source Oral Pulse Rate [Left] 81 Respiratory Rate 18 Blood Pressure [Right Arm] 182/87 H Blood Pressure Mean [Right Arm] 118 02 Sat by Pulse Oximetry 100 Oxygen Delivery Method Room Air Lab Data Lab results reviewed: Yes I reviewed the patient's lab results. Lab Results 10/25/24 20:27: SARS-CoV-2 (PCR) Not detected, Influenza A Untype (PCR) Not detected, Influenza Type B (PCR) Not detected 10/25/24 20:53: WBC 10.7, RBC 3.85 L, Hgb 12.4, Hct 35.8 L, MCV 93.0, MCH 32.2 H , MCHC 34.6, RDW 11.9, Plt Count 254, MPV 8.6, Neut % (Auto) 92.3 H, Lymph % (Auto) 3.5 L, Villalba % (Auto) 3.7, Eos % (Auto) 0.1, Baso % (Auto) 0.2, Neut # (Auto) 9.9 H, Lymph # (Auto) 0.4 L, Villalba # (Auto) 0.4, Eos # (Auto) 0.0, Baso # (Auto) 0.0, Sodium 130 L, Potassium 3.6, Chloride 98, Carbon Dioxide 26, Anion Gap 9.6, BUN 11, Creatinine 0.50 L, Estimated Creat Clear 33, Estimated GFR 120, Est GFR ( Amer) 145, Glucose 111 H, Calcium 9.3, Total Bilirubin 0.6, AST 37 H, ALT 25, Alkaline Phosphatase 83, Troponin I < 0.01, NT-Pro-B Natriuret Pep 300, Total Protein 6.7, Albumin 4.5, Globulin 2.2, Albumin/Globulin Ratio 2.0 H, Lipase 122, TSH 0.80 10/25/24 20:53 10/25/24 20:53 Orders (Tests/Meds): ED MEDICATIONS Discontinued Medications Generic Name Dose Route Start Last Admin Trade Name Freq PRN Reason Stop Dose Admin Lactated Ringer's 1,000 mls @ 999 mls/hr 10/25/24 20:45 10/25/24 21:04 Lactated Ringer's 1000 Ml Bag IV 10/25/24 21:45 999 mls/hr .Q1H1M GUME Administration Ketorolac Tromethamine 15 mg 10/25/24 20:41 10/25/24 21:04 Ketorolac 30mg/Ml Vial IV 10/25/24 20:42 15 mg ONCE ONE Administration Ondansetron HCl 4 mg 10/25/24 20:41 10/25/24 21:05 Ondansetron 4mg/2ml Vial IV 10/25/24 20:42 4 mg ONCE ONE Administration ORDERS Category Date Time Status CXR --portable [XR chest portable] Stat Exams 10/25/24 20:42 Taken BNP [NT Pro Brain Natriuretic Pep.] Stat Lab 10/25/24 20:53 Completed CBC w/Auto Diff [Complete Blood Count Auto Diff] Stat Lab 10/25/24 20:53 Results CMP [Comprehensive Metabolic Panel] Stat Lab 10/25/24 20:53 Completed Lipase Stat Lab 10/25/24 20:53 Completed Rapid PCR Covid and Flu A/B Stat Lab 10/25/24 20:27 Completed TSH [Thyroid Stimulating Hormone] Stat Lab 10/25/24 20:53 Completed Trop I [Troponin I] Stat Lab 10/25/24 20:53 Completed Troponin I Q3H Lab 10/25/24 23:45 Ordered Troponin I Q3H Lab 10/26/24 02:45 Ordered Medical Decision Narrative: 79-year-old nonspecific normal exam presents today with multiple complaints including headache dizziness abdominal burning. Etc. Vital signs are normal physical exam is normal. I suspect most likely this is a viral syndrome however differential is broad we will give her IV fluids Toradol Zofran and check basic blood work and reassess. Reassessment 1001 chest x-ray performed which I personally interpreted which shows no evidence of dense consolidation or significant cardiopulmonary emergency. There is still a left proximal humerus fracture noted. She is in a sling for this. Labs otherwise unremarkable. Patient feels significantly better after 250 cc of her IV fluids are in. Likely she has some mild dehydration. Serial abdominal exams are benign her abdominal discomfort is gone as well. Patient admits that she has been very anxious since she broke her arm and that she believes that the majority of her symptoms are secondary to that. The patient is negative for COVID and flu and overall she appears very well on being discharged. Prescription of Zofran sent in just in case she continues to have decreased p.o. intake. Return precautions emphasized patient was discharged in stable condition. Critical Care Critical Care Time Critical Care Time: No
[2024-10-25 20:35] LABS: Coronavirus 19, PCR Not Detected (NotDetected); Influenza A, PCR Not Detected (NotDetected); Influenza B, PCR Not Detected (NotDetected)
--- NOTE | 2024-10-25 20:42 | XR_ITS ---
PROCEDURE INFORMATION: Exam: XR Chest Exam date and time: 10/25/2024 9:29 PM Age: 79 years old Clinical indication: Dyspnea TECHNIQUE: Imaging protocol: Radiologic exam of the chest. Views: 1 view. COMPARISON: CR XR CHEST PORTABLE 09/21/2024 2:55 AM FINDINGS: Lungs: Hyperinflated lungs. No consolidation. Pleural spaces: Unremarkable. No pleural effusion. No pneumothorax. Heart/Mediastinum: Unremarkable. No cardiomegaly. Bones/joints: Unremarkable. IMPRESSION: No acute findings.
[2024-10-25 21:00] LABS: Basophils % 0.2 % (0.1-2.0); Eosinophils % 0.1 % (0.1-12.0); Hematocrit 35.8 % (37.0-47.0); Hemoglobin 12.4 g/dL (12.2-16.2); Lymphocytes # 0.4 K/mm3 (0.7-4.5); Lymphocytes % 3.5 % (10-50); Mean Corpuscular HGB Conc 34.6 g/dL (31.8-35.4); Mean Corpuscular Hemoglobin 32.2 pg (27.0-31.2); Mean Platelet Volume 8.6 fl (7.4-10.4); Monocytes # 0.4 K/mm3 (0.1-1.0); Monocytes % 3.7 % (1.7-9.3); Neutrophils # 9.9 K/mm3 (1.8-7.8); Neutrophils % 92.3 % (37.0-80.0); Platelet Count 254 K/mm3 (142-424); Red Blood Count 3.85 M/mm3 (4.20-5.40); Red Cell Distribution Width 11.9 % (11.5-17.5); White Blood Count 10.7 K/mm3 (4.8-10.8)
[2024-10-25] MEDS: KETOROLAC 30MG/ML VIAL 15 MG IV (21:04)
[2024-10-25] MEDS: LACTATED RINGERS 1000ML 1,000 ML 999 ML IV (21:04)
[2024-10-25] MEDS: ONDANSETRON 4MG/2ML VIAL 4 MG IV (21:05)
[2024-10-25 21:07] LABS: Albumin Level 4.5 g/dl (3.5-5.0); Chloride 98 mmol/L (98-107)
[2024-10-25 21:08] LABS: Potassium 3.6 mmoL/L (3.5-5.1); Sodium 130 mmol/L (136-145)
[2024-10-25 21:10] LABS: Alanine Aminotransferase 25 U/L (12-78); Alkaline Phosphatase 83 U/L (38-126); Anion Gap 9.6 mEq/L (5-15); Aspartate Amino Transferase 37 U/L (14-36); Bilirubin,Total 0.6 mg/dl (0.2-1.3); Blood Urea Nitrogen 11 mg/dl (7-17); Carbon Dioxide 26 mmol/L (22.0-30.0); Creatinine Clearance Estimated 33 mL/min (50-200); Estimated Glomerular Filt Rate 120 ml/min (>60); GFR (African American) 145 ML/MIN (>60); Globulin 2.2 g/dL (1.3-3.2); Total Protein,Serum 6.7 g/dl (6.3-8.2)
[2024-10-25 21:11] LABS: Calcium 9.3 mg/dl (8.4-10.2); Glucose 111 mg/dl (74-100); Lipase 122 U/L (23-300)
[2024-10-25 21:19] LABS: MANUAL DIFFERENTIAL MANUAL DIFFERENTIAL (MANUAL DIFF)
[2024-10-25 21:20] LABS: NT Pro Brain Natriuretic Pep. 300 pg/mL (0-450)
--- NOTE | 2024-10-25 21:27 | ECG_ITS ---
APPROVED REPORT Exam: Resting ECG HR:71 bpm ECG Measurements Heart Rate 71 AXES LA 141 P 83 QRSd 78 QRS 64 QT 391 T 80 QTc 414 Conclusion SINUS RHYTHM POSSIBLE LEFT ATRIAL ENLARGEMENT [-0.1mV P-WAVE IN V1/V2] BORDERLINE ECG UNCONFIRMED REPORT Electronically signed by : Rasheed Caraballo, 10/25/2024 23:38:52
[2024-10-25 21:30] LABS: Troponin I < 0.01 ng/ml (0.00-0.034)
[2024-10-25 22:27] LABS: Lymphocytes % 6 % (10-50); Monocytes % 2 % (2-9); Neutrophils % 92 % (42-76); Total Cells Counted 100
[2024-10-25 22:28] LABS: Platelet Estimate Normal; RBC Morphology Normal
[2024-10-25 22:38] VITALS: BP 164/81; PULSE 81; RESP 18; TEMP 36.6; O2SAT 100
== END 2024-10-25 22:42 | disposition home or self-care (01) ==
PROVIDERS: Emergency Provider Student in an Organized Health Care Education/Training Program; PCP Internal Medicine Adolescent Medicine
DX: E86.0 Dehydration (principal); F41.9 Anxiety disorder, unspecified; R53.1 Weakness; R42 Dizziness and giddiness; R11.0 Nausea; R51.9 Headache, unspecified; R53.81 Other malaise; R10.13 Epigastric pain
CPT/HCPCS: 71045; 80053; 83690; 83880; 84443; 84484; 85007; 85025; 85027; 87636; 93005; 96361; 96374; 96375; 99284; J1885; J2405; J7120

== ENCOUNTER 2024-11-16 13:43 | Outpatient (CLI) | payer MEDICARE, SELFPAY ==
--- NOTE | 2024-11-16 13:46 | XR_ITS ---
FINAL REPORT CLINICAL HISTORY: lt shoulder pain F/U FRACTURE FROM SEPTEMBER COMPARISON: 10/19/2024 FINDINGS: Two views show a transverse fracture of the anatomic neck. There is stable superior lateral displacement. The fracture line remains distinct. There is no callus formation. IMPRESSION: Humeral neck fracture without bony union. Reviewed, Interpreted and Dictated by Saida Bishop MD Transcribed by Sue Chavez Authenticated and [facility]
== END 2024-11-16 23:59 | disposition home or self-care (01) ==
LOC: RAD 13:44
PROVIDERS: PCP Internal Medicine Adolescent Medicine; Visit Provider Physician Assistant Surgical
DX: M25.512 Pain in left shoulder (principal); S42.292A Other displaced fracture of upper end of left humerus, initial encounter for closed fracture
CPT/HCPCS: 73030

== ENCOUNTER 2024-12-14 13:42 | Outpatient (CLI) | payer MEDICARE, SELFPAY ==
--- NOTE | 2024-12-14 13:48 | XR_ITS ---
FINAL REPORT TECHNIQUE: 2 views left humerus CLINICAL HISTORY: left humerus fx COMPARISON: 11/16/2024 2 views left shoulder FINDINGS: LEFT HUMERUS: Two images of the left humerus were obtained. There has been interval healing of the humeral neck fracture since the prior exam of November. The joint spaces are intact. There is no soft tissue abnormality identified. IMPRESSION: Interval healing of the left humeral neck fracture since the prior exam of November is noted. Reviewed, Interpreted and Dictated by Anisa Hubbard MD Transcribed by Lucinda Greene Authenticated and [facility]
== END 2024-12-14 23:59 | disposition home or self-care (01) ==
LOC: RAD 13:44
PROVIDERS: PCP Internal Medicine Adolescent Medicine; Visit Provider Physician Assistant Surgical
DX: S42.302A Unspecified fracture of shaft of humerus, left arm, initial encounter for closed fracture (principal)
CPT/HCPCS: 73060

== ENCOUNTER 2025-01-05 13:57 | Outpatient (RCR) | payer MEDICARE, SELFPAY ==
--- NOTE | 2025-01-06 09:13 | HMH.PTOPEV ---
PT Outpatient Evaluation Rehab PT Outpatient Evaluation Start: 01/06/25 07:56 Freq: Status: Active Protocol: Document 01/05/25 14:00 ADARSH (Rec: 01/06/25 09:13 LYDIACEASAR [id number]) E-signed By Félix Herrera, PT Outpatient Therapy Subjective History Subjective History Pt is a 79 yof who presents to [facility] outpatient PT following a L proximal humerus fx from a fall on . Per chart, her fracture is healing appropriately and repeat radiographs show adequate healing. Pt reports that she was immobilized in a sling for approximately 8 weeks and was told to continue wearing the sling whenever she is out in public as a protective measure. Pt reports that she has been cleared for all motion. Pt reports difficulty reaching OH, reaching to the side and reaching across her body. Pt reports that she was given a couple exercises to do to stretch her arm out and has been doing them daily. Pt reports that her son has been staying with her since the injury to help out with all armhole presser. PMH: Hypothyroidism, Vertigo, Anxiety, Recent eye troubles New diagnosis of No cancer in past 12 months? Chief Complaint Pain,Stiff Symptom Type Ache,Sharp Symptoms Relieved By OTC Meds Current Functional Reaching,Lifting,Housework,Dressing,Sleeping Limitations Symptom Description Intermittent,Activity Dependent Level of pain today 6 (0-10) Pain scale - at its 0 best (0-10) Pain scale - at its 6 worst (0-10) Shoulder/Elbow Eval Shoulder Objective Measurements Palpation Tenderness tenderness shoulder left exam standard Shoulder Palpation Tenderness Findings Shoulder Palpation TTP 2/4 to L Humeral head Overall Comment Shoulder ROM Left Shoulder ROM Soft Tissue Tightness Limitations Shoulder Abduction 80 Active Range of Motion (degrees) Shoulder Abduction 92 Passive Range of Motion (degrees) Shoulder Flexion 80 Active Range of Motion (degrees) Query Text: Shoulder Flexion 94 Passive Range of Motion (degrees) Shoulder External 25 Rotation Active Range of Motion ( degrees) Shoulder External 30 Rotation Passive Range of Motion ( degrees) Shoulder Internal 70 Rotation Active Range of Motion ( degrees) Shoulder Internal 80 Rotation Passive Range of Motion ( degrees) Shoulder Extension 10 Active Range of Motion (degrees) Shoulder Extension 20 Passive Range of Motion (degrees) pain with active ROM left shoulder exam standard pain with passive left ROM shoulder exam standard decreased ROM left shoulder exam standard full ROM shoulder right exam standard Shoulder MMT Shoulder Abduction 2 Poor Strength Grade Shoulder Extension 2 Poor Strength Grade Shoulder Flexion 2 Poor Strength Grade Shoulder Horizontal 2 Poor Abduction Strength Grade Shoulder Horizontal 2+ Poor+ Adduction Strength Grade Shoulder External 2- Poor- Rotation Strength Grade Shoulder Internal 3+ Fair+ Rotation Strength Grade Elbow Objective Measurements QuickDA Activities Please rate your ability to do the following activities in the last week by selecting the number below the appropriate response. 1. Open a tight or Unable new jar. 2. Do heavy Unable armhole presser (e. g., wash oliva, floors). 3. Carry a shopping Unable bag or briefcase. 4. Wash your back. Severe difficulty 5. Use a knife to Unable cut food. 6. Recreational Unable activities in which you take some force or impact through your arm, shoulder, or hand (e.g., golf, hammering, tennis, etc.). 7. During the past Extremely week, to what extent has your arm, shoulder or hand problem interfered with your normal social activities with family, friends , neighbors or groups? 8. During the past Very limited week, were you limited in your work or other regular daily activites as a result of your arm, shoulder or hand problem? 9. Arm, shoulder or Moderate hand pain. 10. Tingling (pins None and needles) in your arm, shoulder or hand. 11. During the past No difficulty week, how much difficulty have you had sleeping because of the pain in your arm, shoulder or hand? Quick DASH 43 Miscellaneous Dx PT Eval Objective Objective Painful Arc of motion Pt demonstrates clavicular elevation with active shoulder flexion and active shoulder abduction. Outpatient Therapy Assessment Impairments Problems/ Palpation Tenderness,Impaired Range of Motion,Impaired Impairmments Strength,Impaired Lifting,Impaired Dressing,Impaired Shower/Bathing,Impaired Household Care,Subjective C/O Pain Prognosis Rehab Potential Good Clinical Impression Consistent with Yes Diagnosis Consistent with L humerus fx (S42.202A) Short Term Goals Number of Weeks 4 Decreased Palpation Yes: 1/4 to TTP Assessment above Tenderness Increase Range of Yes: L shoulder flexion/Abd to 100, ER to 50 Motion Increase Strength Yes: 2+/5 to L shoulder grossly Restore Ability to Yes: 1# with proper SH rhythm Lift Objects to Shoulder Level Improve Quick Dash Yes: <33 Score Decrease Subjective Yes: 5/10 with above assessment C/O Pain Patient to be Ind w/ Yes HEP Academic Guidance Specialist Goals Number of Weeks 8 Decreased Palpation Yes: 0/4 to TTP assessment above Tenderness Increase Range of Yes: L shoulder flexion/abd to 120 and ER to 75 Motion Increase Strength Yes: 4/5 to L shoulder grossly Improve Ability For Yes: Able to cook/clean house without increasing Household Care symptoms Improve Quick Dash Yes: <23 Score Decrease Subjective Yes: 2-310 with above assessment C/O Pain Patient to be Ind w/ Yes Advanced HEP Outpatient Therapy Plan of Care Treatment Plan May Include Therapeutic Exercise Yes Including Home Exercise Program Manual Therapy Yes Techniques Neuromuscular Re- Yes education Therapeutic Yes Activities to Return to Previous Functional/Work Level ADL/Self Care Yes Education Thermal Modalities Yes Electrical Yes Stimulation Ultrasound/ Yes Phonophoresis Iontophoresis Yes Manual Lymphatic Yes Drainage Eval/Re-Eval Yes Frequency Times per week 2 Duration Number of Weeks 8 Addendums This patient is a No candidate for social or vocational rehab ? Patient/Guardian Yes verbally acknowledges understanding of treatment program and consents to further treatment? Patient/Guardian Yes verbally acknowledges understanding of diagnosis, prognosis and goals for treatment? Eval Complexity PT Charges 90096 - Moderate Complexity PHYSICIAN CERTIFICATION: I certify the specified therapy services for Renetta Dockery are required, authorized, and reviewed every 30 days.
== END 2025-01-05 23:59 | disposition home or self-care (01) ==
LOC: PT 13:57
PROVIDERS: Visit Provider Physician Assistant Surgical
DX: S42.202D Unspecified fracture of upper end of left humerus, subsequent encounter for fracture with routine healing (principal); W19.XXXD Unspecified fall, subsequent encounter
CPT/HCPCS: 97163

== ENCOUNTER 2025-01-11 12:41 | Outpatient (CLI) | payer MEDICARE, SELFPAY ==
--- NOTE | 2025-01-11 12:43 | XR_ITS ---
FINAL REPORT CLINICAL HISTORY: lt shoulder pain COMPARISON: 12/14/2024 FINDINGS: LEFT HUMERUS 2 views were obtained. There has been no significant change in humeral neck fracture. Remainder of the left humerus is unremarkable. No acute bony abnormality is identified. Visualized joint spaces are normally aligned. Soft tissues are unremarkable. IMPRESSION: No significant interval change in humeral neck fracture. Reviewed, Interpreted and Dictated by Anisa Hubbard MD Transcribed by Marianela Juarez Authenticated and [facility]
== END 2025-01-11 23:59 | disposition home or self-care (01) ==
LOC: RAD 12:41
PROVIDERS: PCP Internal Medicine Adolescent Medicine; Visit Provider Physician Assistant Surgical
DX: S42.212A Unspecified displaced fracture of surgical neck of left humerus, initial encounter for closed fracture (principal); S42.292A Other displaced fracture of upper end of left humerus, initial encounter for closed fracture
CPT/HCPCS: 73060

== ENCOUNTER 2025-01-28 13:00 | Outpatient (RCR) | payer MEDICARE, SELFPAY | END 2025-01-28 23:59 | disposition home or self-care (01) | LOC: PT 13:00 | PROVIDERS: Visit Provider Physician Assistant Surgical | DX: S42.302A Unspecified fracture of shaft of humerus, left arm, initial encounter for closed fracture (principal) | CPT/HCPCS: 97014; 97110; 97140; G0283 ==

== ENCOUNTER 2025-02-08 15:06 | Outpatient (RCR) | payer MEDICARE, SELFPAY ==
--- NOTE | 2025-02-08 17:46 | HMH.RHREAS ---
Rehab Reassessment Rehab OP Re-assessment Start: 02/08/25 15:09 Freq: Status: Active Protocol: Document 02/08/25 15:14 ADARSH (Rec: 02/08/25 17:46 ADARSH [id number]) E-signed By Félix Herrera PT QuickDASH Activities Please rate your ability to do the following activities in the last week by selecting the number below the appropriate response. 1. Open a tight or Moderate difficulty new jar. 2. Do heavy Unable pharmacy picking technician (e. g., wash oliva, floors). 3. Carry a shopping Moderate difficulty bag or briefcase. 4. Wash your back. Severe difficulty 5. Use a knife to Mild difficulty cut food. 6. Recreational Unable activities in which you take some force or impact through your arm, shoulder, or hand (e.g., golf, hammering, tennis, etc.). 7. During the past Slightly week, to what extent has your arm, shoulder or hand problem interfered with your normal social activities with family, friends , neighbors or groups? 8. During the past Very limited week, were you limited in your work or other regular daily activites as a result of your arm, shoulder or hand problem? 9. Arm, shoulder or Severe hand pain. 10. Tingling (pins None and needles) in your arm, shoulder or hand. 11. During the past Moderate difficulty week, how much difficulty have you had sleeping because of the pain in your arm, shoulder or hand? Quick DASH 36 Rehab Re-assessment Subjective Subjective Pt reports that in the past week, her pain has increased and she feels like her motion has decreased. Pt reports that her pain this date is an 8/10. Reports that she is unsure what happened but at some point in the middle of the week last week, her arm began hurting and she can barely lift her arm. Pt reports that she felt fine for 3-4 days after the prior PT visit. Objective Objective Notes QDASH: 36 (46 on IE) ROM: - Active Flexion 45 - Active Abduction 50 Strength: - 2/5 to flexion, ER, and abduction TTP: 3/4 to L shoulder complex grossly Assessment Progress Assessment No Progress Assessment Notes Pt has undergone one month of PT and was progressing well. However, pt was unable to come to PT last week and presents this date with remarkably worse motion and pain than at her initial evaluation. Pt cannot recall a specific event that caused her new onset of pain but reports that it began to worsen in the middle of last week. Pt instructed to call Dr. Navas's office and schedule an appointment. Skilled PT remains indicated otherwise. Patient goals met ST LT Plan Plan Continue as per initial POC unless instructed otherwise by Ortho. Frequency of Therapy 2/week Duration of therapy 4 weeks Time and Billing Re-Eval Time 10 Re-Eval Billing 0 Units Charge for PT No reassessment? PHYSICIAN CERTIFICATION: I certify the specified therapy services for Renetta Dockery are required, authorized, and reviewed every 30 days.
== END 2025-02-08 23:59 | disposition home or self-care (01) ==
LOC: PT 15:06
PROVIDERS: Visit Provider Physician Assistant Surgical
DX: S42.302A Unspecified fracture of shaft of humerus, left arm, initial encounter for closed fracture (principal)
CPT/HCPCS: 97014; 97530; G0283

== ENCOUNTER 2025-02-14 13:09 | Outpatient (CLI) | payer MEDICARE, SELFPAY ==
--- NOTE | 2025-02-14 13:12 | XR_ITS ---
FINAL REPORT CLINICAL HISTORY: fx f/u, PAIN AFTER THERAPY COMPARISON: 01/11/2025 FINDINGS: LEFT HUMERUS 2 views of the left humerus were obtained. There is redemonstration of an impacted, moderately displaced fracture of the proximal humerus, predominantly through the surgical neck. There are mild degenerative changes of the acromioclavicular and glenohumeral joints. Soft tissues are unremarkable. No new fracture is identified. IMPRESSION: No significant change in proximal humeral fracture. Reviewed, Interpreted and Dictated by Daniel Whyte MD Transcribed by Marianela Juarez Authenticated and [facility]
--- OUTSIDE RECORDS SUMMARY | 2025-02-14 13:14 | XMS_ITS | Clinical Summary ---
Author Organization Healthcare Address [address] [place] [address] Care Team Providers Care Management Accounts Manager Name Role Phone Hosea Johnson MD Primary Care Provider [phone] Alicia Gaffney MD Unavailable [phone] Allergies Active Allergy Reactions Criticality Noted Date Comments Hydrochlorothiazide Dizziness Low 05/29/2022 Sulfacetamide Unknown - Patient st ates they do not know rxn details Low 09/23/2008 Medications amLODIPine (Norvasc) 5 MG tablet 07/11/2023 Active Aspirin Buf,CaCarb-MgCa rb-MgO, 81 MG tablet TAKE 1 TABLET DAILY. 10/21/2016 Active atorvastatin (Lipitor) 10 MG tablet Take 1 tablet (10 mg) by mouth 1 (one) time each day. 03/19/2023 Active carvedilol (Coreg) 12.5 MG tablet Take 1 tablet (12.5 mg) by mouth 2 (two) times a day. 05/20/2023 Active levothyroxine (Synthroid, Levoxyl) 50 MCG tablet TAKE ONE TABLET BY MOUTH daily friday - friday, AND TAKE 1 AND 1/2 TABLET ON FRIDAY AND Friday06/19/2023 Active Family History Medical History Relation Name Comments Cardiac disorder Father Hyperlipidemia Father Hypertension Father Hip fracture Mother Osteoporosis Mother Relation Name Status Comments Father Mother Social History Tobacco Use Types Packs/Day Years Used Date Smoking Tobacco: Former Smokeless Tobacco: Never Tobacco Cessation:Counseling Given: Not Answered Alcohol Use Standard Drinks/Week Comments Not Currently 0 (1 standard drink = 0.6 oz pure alcohol) Alcoholic Drinks/day: History of alcohol use Comments Unknown Sex and Gender Information Value Date Recorded Sex Assigned at Not on file Legal Sex Female 8:39 PM EDT Gender Identity Not on file Sexual Orientation Not on file Last Filed Vital Signs Vital Sign Reading Time Taken Comments Blood Pressure 118/68 07/15/2023 11:15 AM EST Pulse - - Temperature - - Respiratory Rate - - Oxygen Saturation - - Inhaled Oxygen Concentration - - Weight 43.1 kg (95 lb) 07/15/2023 11:15 AM EST Height 154.9 cm (5' 1 ) 07/15/2023 11:15 AM EST Body Mass Index 17.95 07/15/2023 11:15 AM EST Plan of Treatment Health Maintenance Due Date Last Done Comments [facility]-Bone Density Scan 1947 [facility]-Depression Screening 1945 [facility]-Hepatitis C Screening 1945 [facility]-Medicare Annual Wellness (AWV) 1945 [facility]-/Child/Adol SDOH Screenings 1947 [facility]- SDOH Screenings 1965 [facility]-Adult SDOH Screenings 1965 [facility]-DTaP,Tdap,and Td Vaccines (1 - Tdap) 1966 [facility]-Pneumococcal Vaccine: 50+ Years (1 of 1 - PCV) 1997 [facility]-Zoster Vaccines (1 of 2) 1997 [facility]-RSV Vaccine: 60+ Years or (1 - 1-dose 75+ series) 2022 [id number] Vaccine (3 - season) 2024 07/14/2021, 12/18/2020 [facility]-Influenza Vaccine (#1) 2025 HPV Vaccines Aged Out No longer eligi ble based on patient's age to complete this topic [facility]-HIB Vaccines Aged Out No longer e ligible based on patient's age to complete this topic [facility]-Hepatitis A Vaccines Aged Out No longer eligible based on patient's age to complete this topic [facility]-IPV Vaccines Aged Out No longer e ligible based on patient's age to complete this topic [facility]-Rotavirus Vaccines Aged Out No lo nger eligible based on patient's age to complete this topic Insurance [employer] Care Teams Management Accounts Manager Relationship Specialty Start Date End Date Hosea Johnson MD [address] [place] [address] PCP - General 12/22/20 Alicia Gaffney MD [address] [place] [address] Consulting Physician Neurology 07/15/23
== END 2025-02-14 23:59 | disposition home or self-care (01) ==
LOC: RAD 13:10
PROVIDERS: PCP Nurse Practitioner Family; Visit Provider Physician Assistant Surgical
DX: S42.212A Unspecified displaced fracture of surgical neck of left humerus, initial encounter for closed fracture
CPT/HCPCS: 73060

== ENCOUNTER 2025-03-09 15:03 | Outpatient (RCR) | payer MEDICARE, SELFPAY ==
--- NOTE | 2025-03-09 16:55 | HMH.PTOPEV ---
PT Outpatient Evaluation Rehab PT Outpatient Evaluation Start: 03/09/25 16:41 Freq: Status: Active Protocol: Document 03/09/25 16:41 PHORAZRA (Rec: 03/09/25 16:55 PHORNE [id number]) E-signed By Elliot Kirby, PT Outpatient Therapy Subjective History Subjective History This is the initial PT eval for Renetta Dockery, 79 yowf who presents with c/o increased dizziness x ~ 5-6 mos. She reports she suffered a fall when she tripped on her porch with resulting L proximal humerus fx. She has healed from her fx, but reports dizziness remains and has been present since that time. She reports feeling dizzy all the time, but worse with walking. She reports no dizziness with sitting unless she moves her head. She also reports she feels as if she is rocking all the time when sitting and feels when she walks, she starts to go sideways instead of forward. She reports no c/o nausea, no hx of cardiac issues, no hx of headaches, not currently taking any meds for HTN. She does reports blurry vision, popping in both sides of her TMJ, and mildly increased lateral neck pain since her fall. Chief Complaint Other Level of pain today 0 (0-10) Balance Eval Hx of Falls Hx Falls Yes Number in last 6 1 months Nystagmus Nystagmus Presence None Oculomotor Gaze Oculomotor Gaze Nml: Vergence Smooth Pursuit Saccades VOR Cancellation Cover/Uncover Cross Cover Dynamic Gait Index Test Protocol Gait Level Surface Normal Query Text: Instructions: Walk at your normal speed from here to the next lorne (20'). Grading: Lorne the lowest category that applies. Change in Gait Speed Mild Impairment Query Text: Instructions: Begin walking at your normal pace (for 5') , when I tell you go , walk as fast as you can (for 5'). When I tell you slow , walk as slowly as you can ( for 5'). Grading: Lorne the lowest category that applies. Gait with Horizontal Moderate Impairment Head Turns Query Text: Instructions: Begin walking at your normal pace. When I tell you to look right , keep walking straight, but turn you head to the right. Keep looking to the right unit I tell you look left , then keep walking straight and turn your head to the left. Keep your head to the left until I tell you look straight , then keep walking straight, but return you head to the center. Grading: Lorne the lowest category that applies. Gait with Vertical Moderate Impairment Head Turns Query Text: Instructions: Begin walking at your normal pace. When I tell you to look up , keep walking staight, but tip your head up. Keep looking up until I tell you to look down , then keep walking straight and tip your head down. Keep your head down until I tell you look straight , then keep walking straight, but return your head to the center. Grading: Lorne the lowest category that applies. Gait and Pivot Turn Moderate Impairment Query Text: Instructions: Begin walking at your normal pace. When I tell you turn and stop , turn as quickly as you can to face the opposite direction and stop. Grading: Lorne the lowest category that applies. Step Over Obstacle Mild Impairment Query Text: Instructions: Begin walking at your normal speed. When you come to the shoebox, step over it, not around it and keep walking. Grading: Lorne the lowest category that applies. Step Around Normal Obstacles Query Text: Instructions: Begin walking at normal speed. When you come to the first cone (about 6' away) , walk around the right side of it. When you come to the second cone (6' past first cone), walk around it to the left. Grading: Lorne the lowest category that applies. Steps Moderate Impairment Query Text: Instructions: Walk up these stairs as you would at home. At the top, turn around and walk down . Grading: Lorne the lowest category that applies. Scoring Dynamic Gait Index 14 Score Miscellaneous Dx PT Eval Objective Objective Head shake nystagmus test: no nystagmus, but increased dizziness Head impulse test: increased dizziness Brighton/Hallpike and Horizontal roll testing: pt reports same increased dizziness with all positions, but no nystagmus note din any positions. Indicates not BPPV related. Miscellaneous Goals Short Term Goals in 2 weeks pt will: 1) have MILD dizziness with head movements 2) increase DGI to 17/24 [employer] Supervisor Goals In 4 weeks pt will 1) have no dizziness with head movements 2) increase DGI to 19/24 3) be independent with habituation exercises for dizziness for HEP. Outpatient Therapy Assessment Impairments Problems/ Impaired Walking,Impaired Driving,Impaired Household Impairmments Care,Impaired Stair Climbing,Impaired Incline Stepping, Impaired Stepping on Uneven Surface,Impaired Recreational Activities,Impaired Balance,Impaired DGI Score,Impaired Self Care/Self Management Prognosis Rehab Potential Good Comment Skilled therapy is indicated to reduce pt c/o dizziness and improve balance in order to increase pt QOL and return pt to PLOF. Clinical Impression Consistent with Yes Diagnosis Consistent with Also Additional details: R42 Dizziness and Giddiness Outpatient Therapy Plan of Care Treatment Plan May Include Therapeutic Exercise Yes Including Home Exercise Program Manual Therapy Yes Techniques Neuromuscular Re- Yes education Therapeutic Yes Activities to Return to Previous Functional/Work Level ADL/Self Care Yes Education Eval/Re-Eval Yes Canalith Yes Repositioning Technique Frequency Times per week 2 Duration Number of Weeks 4 Addendums This patient is a No candidate for social or vocational rehab ? Patient/Guardian Yes verbally acknowledges understanding of treatment program and consents to further treatment? Patient/Guardian Yes verbally acknowledges understanding of diagnosis, prognosis and goals for treatment? Eval Complexity PT Charges 39129 - High Complexity Shoulder/Elbow Eval Shoulder Objective Measurements Elbow Objective Measurements PHYSICIAN CERTIFICATION: I certify the specified therapy services for Renetta Dockery are required, authorized, and reviewed every 30 days.
== END 2025-03-09 23:59 | disposition home or self-care (01) ==
LOC: PT 15:03
PROVIDERS: PCP Nurse Practitioner Family; Visit Provider Nurse Practitioner Family
DX: R42 Dizziness and giddiness (principal)
CPT/HCPCS: 97163